=== PATIENT | male | born 1980 | race Two or more races ===

== ENCOUNTER 2025-06-18 17:29 | Inpatient (IN) | payer MEDICAID, SELFPAY ==
[2025-06-18 17:47] VITALS: BP 138/83; PULSE 89; RESP 20; TEMP 37.7; O2SAT 97; BMI 28.8
--- NOTE | 2025-06-18 17:48 | XR_ITS ---
Examination: CT abdomen with intravenous contrast CT pelvis with intravenous contrast 2-D coronal reconstructions 2-D sagittal reconstructions Date and time of exam:June 18, 2025, 1948 hours, comparison October 15, 2014 INDICATION: Right lower abdominal pain onset today. CTDI: vol (mGy) 7.32 DLP: (mGycm) 451 Technique: Multiple axial sections of the abdomen and pelvis have been obtained. 64 slice high-resolution scanner used. 3 mm axial sections have been obtained, post intravenous injection 60 cc Isovue 370 2-D sagittal, coronal reconstructions obtained. Low dose protocols were performed. One or more of the following dose reduction techniques were used; automated exposure control, adjustment of the mA and/or KV according to patient size, use of iterative reconstruction technique. Findings: No focal liver or splenic lesion Contracted gallbladder No pancreatic or adrenal mass. No hydronephrosis Abscess involving the right psoas and right iliacus muscle, axial image 138, at least 6 cm in mediolateral dimension and extending cephalocaudad over dimension of at least 10 cm Urinary bladder is intact No prostatomegaly IMPRESSION: Soft tissue mass involving the right psoas and right iliacus muscle most consistent with abscess, tuberculosis would be high on the differential list
--- NOTE | 2025-06-18 17:48 | PD.EDRME ---
Rapid Medical Screening Exam [facility] Arrival date/time: 06/18/25 17:29 44-year-old male with no significant medical problems presents to the emergency room today for complaint of nausea vomiting and right side abdominal pain x 2 weeks Chief Complaint: Abdominal Pain Time Seen by Provider: 06/18/25 17:30 Vital signs: Vital Signs Temperature 99.9 F 06/18/25 17:47 Pulse Rate 89 06/18/25 17:47 Respiratory Rate 20 06/18/25 17:47 Blood Pressure 138/83 H 06/18/25 17:47 Pulse Oximetry (%) 97 06/18/25 17:47 Oxygen Delivery Method Room Air 06/18/25 17:47
[2025-06-18 18:45] LABS: Collection Type, Urine Clean Catch; Squamous Epithelial Cell,Urine 0 /hpf (0-5)
[2025-06-18 19:01] LABS: Bilirubin,Urine Negative (Negative); Blood,Urine Negative (Negative); Clarity,Urine Clear (Clear/Hazy); Color,Urine Lt-Yellow (Lt Yel-Yel); Culture Indicated,Urine Not Indicated; Glucose, Urine Negative (Negative); Ketones,Urine Negative (Negative); Leukocyte Esterase,Urine Negative (Negative); Nitrite,Urine Negative (Negative); PH,Urine 6.0 (5.0-7.0); Protein,Urine Negative (Neg - Trace); RBC,Urine 1 /hpf (0-3); Specific Gravity,Urine 1.022 (1.001-1.035); Urobilinogen,Urine Negative mg/dL (0.0-1.0); WBC,Urine < 1 /hpf (0-5)
[2025-06-18 19:14] LABS: Basophils # (Auto) 0.1 Thou/mm3 (0.0-0.2); Basophils % (Auto) 0 % (0-2.5); Eosinophils # (Auto) 0.3 Thou/mm3 (0.0-0.5); Eosinophils % (Auto) 2 % (0-10); Hematocrit 44.8 % (41.0-53.0); Hemoglobin 15.0 g/dL (13.5-16.0); Immature Granulocytes Auto 0.05 Thou/mm3 (0.00-0.00); Lymphocytes # (Auto) 2.7 Thou/mm3 (1.0-4.8); Lymphocytes % (Auto) 19 % (10-50); Mean Corpuscular HGB Conc 33.5 g/dl (31.0-37.0); Mean Corpuscular Hemoglobin 31.7 pg (25.0-35.0); Mean Corpuscular Volume 95 fL (80-100); Monocytes # (Auto) 1.5 Thou/mm3 (0.0-0.8); Monocytes % (Auto) 10 % (0-12); Neutrophils # (Auto) 9.9 Thou/mm3 (1.8-7.7); Neutrophils % (Auto) 69 % (37-80); Nucleated Red Blood Cell # 0.00 Thou/mm3 (0.00-0.00); Nucleated Red Blood Cell % 0 /100 WBC (0); Platelet Count 310 Thou/mm3 (140-440); RDW Standard Deviation 42.9 fL (35.1-43.9); Red Blood Count 4.73 Miln/mm3 (4.50-5.90); White Blood Count 14.5 Thou/mm3 (3.8-10.6)
[2025-06-18 19:46] LABS: Alanine Aminotransferase 17 U/L (10-49); Albumin, Serum 4.4 gm/dL (3.5-5.0); Albumin/Globulin Ratio 1.4 (1.2-2.2); Alkaline Phosphatase 85 U/L (46-116); Anion Gap 8 (7-16); Aspartate Amino Transferase 25 U/L (0-34); BUN/Creatinine Ratio 12 Ratio (12-20); Bilirubin,Total 0.4 mg/dL (0.3-1.2); Blood Urea Nitrogen 12 mg/dL (9-23); Calcium 9.5 mg/dL (8.3-10.6); Calcium (Corrected) 9.5 mg/dL (8.5-10.1); Carbon Dioxide 29.7 mMol/L (20.0-31.0); Chloride 102 mMol/L (98-107); Creatinine (Component) 1.0 mg/dL (0.6-1.3); Estimated Creatinine Clearance 92.2 mL/min (>60); Globulin 3.1 gm/dL (2.3-3.5); Glucose 87 mg/dL (74-106); Lipase 31 U/L (12-53); Osmolality,Calculated 278 (275-295); Potassium 4.2 mMol/L (3.4-5.1); Sodium 140 mMol/L (136-145); Total Protein 7.5 gm/dL (5.7-8.2); eGFR > 60 See Note
--- NOTE | 2025-06-18 21:22 | PD.EDABDPN ---
ED Abdominal Pain RME/HPI General Chief Complaint: Abdominal Pain Stated complaint: STOMACH PAIN X3 WKS Time seen by provider: 06/18/25 17:30 Arrival date/time: 06/18/25 17:29 RME / HPI RME / HPI narrative: 06/18/25 17:29 44-year-old male with no significant medical problems presents to the emergency room today for complaint of nausea vomiting and right side abdominal pain x 2 weeks See MDM Related Data Allergies Allergy/AdvReac Type Severity Reaction Status Date / Time NKA* Allergy Uncoded 06/18/25 17:32 Review of Systems Review of Systems Systems Reviewed: All systems reviewed, normal except as documented ED Exam Narrative Physical exam: See [facility] Course Quality Measures none Orders Category Date Time Status Admit to Inpatient Status Routine Admission 06/18/25 23:18 Active Patient Condition Routine Admission 06/18/25 23:18 Ordered COVID-19 Screening Questionnaire NOW Care 06/18/25 22:[address] Screening NOW Care 06/18/25 17:48 Active Decision to Admit X1 Care 06/18/25 22:14 Completed Insert IV NOW Care 06/18/25 17:48 Active NPO after Midnight ONCE Care 06/18/25 23:16 Active Notify provider NEEDED Care 06/18/25 23:18 Active SVN NEEDED Care 06/18/25 23:16 Active Tuberculin Skin Test (PPD) q48h Care 06/18/25 23:16 Active Consult to Infectious Diseases Stat Cons 06/18/25 23:14 Ordered Diet NPO after Midnight Diet 06/19/25 00:[address] abdomen pelvis w con Stat Exams 06/18/25 17:48 Completed IR abscess drainage Stat Exams 06/18/25 Ordered XR chest 1V Stat Exams 06/18/25 22:16 Completed CBC Stat Lab 06/18/25 19:07 Completed CRP [C-Reactive Protein] Stat Lab 06/18/25 23:35 Completed Comprehensive Metabolic Panel Stat Lab 06/18/25 19:07 Completed Cult AFB Sendout- Sputum* Q8H Lab 06/19/25 01:16 Received Cult AFB Sendout- Sputum* Q8H Lab 06/19/25 07:30 Ordered Cult AFB Sendout- Sputum* Q8H Lab 06/19/25 15:30 Ordered ESR [Sed Rate (ESR)] Stat Lab 06/18/25 23:35 Completed HIV (1&2) Antibody Rapid Stat Lab 06/18/25 23:35 Received Lipase Stat Lab 06/18/25 19:07 Completed Quantiferon-TB* Stat Lab 06/18/25 23:16 Ordered Type and Screen Stat Lab 06/18/25 23:35 Completed UA, C/S IF [Urinalysis, C/S if Indicated] Stat Lab 06/18/25 18:06 Completed Piper/Tazo 3.375 gm Premix [Zosyn] 50 ml Med 06/18/25 23:15 Pending IV Q6HR Sodium Chloride Rt Agnieszka 10% [NS Rt Agnieszka 10%] Med 06/18/25 23:14 Discontinued 5 ml INH X1 ONE Tuberculin Ppd Inj [Tubersol Inj] Med 06/18/25 23:14 Discontinued 5 unit ID X1 ONE Vancomycin Pharmacy to Dose Med 06/19/25 09:00 Pending 1 each IV QDAY Code Status Routine Oth 06/18/25 23:14 Ordered Oxygen Delivery PRN RT 06/18/25 23:14 Active Vital Signs Vital signs: Vital Signs Temperature 99.9 F 06/18/25 17:47 Pulse Rate 89 06/18/25 17:47 Respiratory Rate 20 06/18/25 17:47 Blood Pressure 138/83 H 06/18/25 17:47 Pulse Oximetry (%) 97 06/18/25 17:47 Oxygen Delivery Method Room Air 06/18/25 17:47 Abdominal Pain MDM MDM Narrative MDM Narrative:: Scribe Attestation: I, Mandy Scott, am scribing for and in the presence of Dr. Linda. Provider Notation: Although this document has been carefully reviewed, there may still be some phonetic and other typographical errors.? These errors are purely grammatical due to imperfections in the software program and should not be construed in any way to? compromise the substance of the patient's medical care during this visit. This section includes all my notes and documentations, including HPI, PE, and ED course. Alvaro Linda MD HPI: 44 y/o male presents with right-sided abdominal pain x 3 weeks. No obvious cause. No known injury. No fever or chills. No unusual malaise and fatigue. No cough. No other complaints. ROS: All negative except as documented in HPI. Physical Exam: General: Alert and oriented. No acute distress when remaining still. Eyes: Conjunctivae and lids clear. ENT: No nasal congestion. Neck: Supple. Heart: RRR. Lungs: No respiratory distress. Good air movement. No rhonchi, wheezing, rales. Abdomen: Soft with equivocal tenderness in right flank region. Normal bowel sounds. No distension. No rebound or guarding. Back: No CVA tenderness. Skin: Warm and dry. Neuro: Alert and oriented X 3. I reviewed all diagnostic test results: My interpretation of the CXR is no acute findings. My review of the Abdomen/Pelvis CT report is: Soft tissue mass involving the right psoas and right iliacus muscle most consistent with abscess, tuberculosis would be high on the differential list. Blood tests and urine tests remarkable for WBC 14.5, ESR 50, CXR 4.2. At this point, diagnoses include: Intra-abdominal abscess. I discussed the case with our surgeon, Dr. Vizcaino. About the presentation and exam and diagnostics and treatments here. And possible need of further care in the hospital. Recommended consultation with IR. I discussed the case with our IR. About the presentation and exam and diagnostics and treatments here. And possible need of further care in the hospital. Recommended admission to hospitalist service. Will drain the abscess if needed. I discussed the case with our hospitalist. About the presentation and exam and diagnostics and treatments here. And need of further care in the hospital. Agreed to accept the patient. During my watch, the patient remained stable. Alvaro Linda MD Patient data External records reviewed:: [facility] previous records (No prior ED records available for review.) Clinical information provided by:: patient Social determinants that could affect healthcare access:: none Patient has the following chronic illnesses:: None reported How is presenting disease/condition affected by chronic disease/condition?: no chronic disease Evaluation data The following diagnostics were reviewed and interpreted by me:: lab results and radiology exam(s) Lab and/or radiology exams considered but not ordered:: None Interpretation Summary: I reviewed all diagnostic test results: My interpretation of the CXR is no acute findings. My review of the Abdomen/Pelvis CT report is: Soft tissue mass involving the right psoas and right iliacus muscle most consistent with abscess, tuberculosis would be high on the differential list. Blood tests and urine tests remarkable for WBC 14.5, ESR 50, CXR 4.2. Medications / Prescriptions Medications or Prescriptions considered but not ordered:: None Medication administrations:: Medication Administration History Acetaminophen (Acetaminophen 325 Mg Tablet) 650 mg PO Q6H PRN PRN Reason: PAIN SCALE 1-3 (mild Stop: 07/18/25 23:18 Acetaminophen (Acetaminophen 325 Mg Tablet) 650 mg PO Q6H PRN PRN Reason: Fever >100.4 Stop: 07/18/25 23:18 Hydrocodone Bitart/Acetaminophen (Hydrocodone/Apap 5/325 Tablet) 1 tab PO Q4HR PRN PRN Reason: PAIN SCALE 4-10(Mod-Sev Stop: 06/23/25 23:18 Enoxaparin Sodium (Enoxaparin Sod Inj 40 Mg/0.4 Ml Syringe) 40 mg SC QDAY EDI Stop: 07/03/25 08:59 Piperacillin/Tazobactam/Dextrose (Zosyn) 50 mls @ 100 mls/hr IV Q6HR EDI Stop: 06/25/25 23:14 Vancomycin/Sodium Chloride (Vancomycin/Ns 1 Gm Ivpb) 200 mls @ 120 mls/hr IV Q100M EDI Stop: 06/19/25 03:04 Last Admin: 06/19/25 01:05 Dose: 120 mls/hr Documented By: TELLO Ondansetron HCl (Ondansetron Inj 2 Mg/Ml Inj 2 Ml) 4 mg IVP Q6H PRN; Protocol PRN Reason: NAUSEA OR VOMITING Stop: 07/18/25 23:18 Pharmacy Consult (Vancomycin Pharmacy To Dose 1 Each Each) 1 each IV QDAY EDI Stop: 07/19/25 08:59 Discontinued Medications Piperacillin/Tazobactam/Dextrose (Zosyn) 3.375 gm in 50 mls @ 100 mls/hr IV X1 ONE Stop: 06/19/25 00:14 Last Infusion: 06/19/25 01:19 Dose: Infused Documented By: Admin: 06/19/25 00:07 Dose: 100 mls/hr Documented By: TELLO Vancomycin HCl 1,000 mg/ (Sodium Chloride) 250 mls @ 120 mls/hr IV X1 ONE Stop: 06/19/25 02:55 Last Admin: 06/19/25 01:04 Dose: Not Given Documented By: SE Non-Admin Reason: Cancelled by Provider Sodium Chloride (Sodium Chloride Rt 10% 15 Ml Nebu) 5 ml INH X1 ONE Stop: 06/18/25 23:15 Tuberculin PPD (Tuberculin Ppd Inj 5 Unit/0.1 Ml Dose) 5 unit ID X1 ONE Stop: 06/18/25 23:15 Vancomycin HCl (Vancomycin Inj 1,000 Mg Vial) Confirm Administered Dose 2,000 mg .ROUTE .STK-MED ONE Stop: 06/19/25 00:51 Last Admin: 06/19/25 01:03 Dose: Not Given Documented By: SE Non-Admin Reason: Duplicate Medication on eMAR Patient received no treatment from me. Consultations Consultation(s) initiated? (list below): Yes Consultation #1 (Physician, Specialty, Details): I discussed the case with our surgeon, Dr. Vizcaino. About the presentation and exam and diagnostics and treatments here. And possible need of further care in the hospital. Recommended consultation with IR. Time: 21:20 Consultation #2 (Physician, Specialty, Details): I discussed the case with our IR. About the presentation and exam and diagnostics and treatments here. And possible need of further care in the hospital. Recommended admission to hospitalist service. Will drain the abscess if needed. Time: 21:29 Consultation #3 (Physician, Specialty, Details): I discussed the case with our hospitalist. About the presentation and exam and diagnostics and treatments here. And need of further care in the hospital. Agreed to accept the patient. Time: 22:00 Diagnosis Differential diagnosis abdominal pain: abdominal pain, acute appendicitis, calculus of kidney, constipation, diverticulitis, gastroenteritis and small bowel obstruction Most likely diagnosis given after review of the tests above:: Intra-abdominal abscess Admission Indicated Admission indicated?: indicated Explain why admission is indicated or not indicated:: Intra-abdominal abscess Admission Request Was there a request for admission?: Yes Admission Attestation Admission request attestation: Discussed case with [] from Hospitalist service regarding admission. Discussed patients ED course, exam findings, labs, and radiology results. The Hospitalist [agrees,declines] to accept the patient for admission. Disposition Plan Disposition Plan: Admit Discharge Plan Plan Patient Disposition: Admit Acute Care w/in Hospital Problem List Clinical Impression: Intra-abdominal abscess
--- NOTE | 2025-06-18 22:16 | XR_ITS ---
Examination: PA chest single view TECHNIQUE: Upright PA chest single view Date and time: June 18, 2025 10:21 PM INDICATIONS: Nausea vomiting and right-sided abdominal pain beginning 2 weeks ago. FINDINGS: Normal heart size The lungs are clear. The osseous structures are intact IMPRESSION: No active disease
[2025-06-18 22:41] VITALS: BP 111/69; PULSE 76; RESP 17; TEMP 37.4; O2SAT 96
--- NOTE | 2025-06-18 23:22 | ESHP_ITS ---
Documentation for date of: 06/18/25 [facility] History of Present Illness Chief complaint: Right-sided abdominal/flank pain for 3 weeks History of present illness: 44-year-old male with no past medical history presents with right flank pain ongoing for approximately 3 weeks. The pain is constant, worsens with movement, swelling and palpation, and has not improved with time. He denies trauma, falls, or recent physical exertion. He endorses chills, but denies fevers, night sweats, intentional weight loss, nausea, vomiting, constipation, diarrhea urinary symptoms, hematuria, or respiratory complaints. He reports a positive TB test approximately 17 years ago, for which he had completed treatment. Since then, he has had multiple TB test, all negative. He denies chronic cough, hemoptysis, or dyspnea. No history of incarceration or sheltered living. 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 ED Course: CT abdomen/pelvis showed a 6x10 cm right psoas/iliacus abscess. Chest X-ray done. Blood cultures drawn. Started on Zosyn and Vancomycin. IR (Dr. Asencio) consulted and agreed to drain. Patient admitted for further management. ROS: Negative unless stated above No medications No known allergies Past surgical history notable for appendectomy 8 years ago Denies smoking, alcohol, or drug use. Exam Vital Signs Temp Pulse Resp BP Pulse Ox O2 Del Method 99.4 F 76 17 111/69 96 Room Air 06/18/25 22:41 06/18/25 22:41 06/18/25 22:41 06/18/25 22:41 06/18/25 22:41 06/18/25 22:41 Narrative Exam General: Alert, oriented, no acute distress when still HEENT: PERRL, EOMI, conjunctivae clear, oropharynx normal Neck: Supple, no lymphadenopathy Lungs: Clear to auscultation bilaterally, no respiratory distress Heart: RRR, no murmurs Abdomen: Soft, non-tender, non-distended, normal bowel sounds Back/Flank: Tenderness to right flank, no visible mass, no CVA tenderness Neuro: AOx3, CN II-XII intact, no focal motor deficits Skin: Warm, dry Extremities: No edema or cyanosis Results: Labs 06/18/25 19:07 06/18/25 19:07 Labs: Short CBC 06/18/25 Range/Units 19:07 WBC 14.5 H (3.8-10.6) Thou/mm3 Hgb 15.0 (13.5-16.0) g/dL Hct 44.8 (41.0-53.0) % Plt Count 310 (140-440) Thou/mm3 BMP 06/18/25 19:07 Sodium 140 Potassium 4.2 Chloride 102 Carbon Dioxide 29.7 BUN 12 Creatinine 1.0 Glucose 87 Calcium 9.5 Liver Function 06/18/25 Range/Units 19:07 Total Bilirubin 0.4 (0.3-1.2) mg/dL AST 25 (0-34) U/L ALT 17 (10-49) U/L Alkaline Phosphatase 85 (46-116) U/L Albumin 4.4 (3.5-5.0) gm/dL Urine 06/18/25 Range/Units 18:06 Urine Color Lt-Yellow (Lt Yel-Yel) Urine Clarity Clear (Clear/Hazy) Urine pH 6.0 (5.0-7.0) Ur Specific [place] 1.022 (1.001-1.035) Urine Protein Negative (Neg - Trace) Urine Glucose (UA) Negative (Negative) Quality Measures Quality Measures VTE prophylaxis Medications Home Medications and Allergies Allergies Allergy/AdvReac Type Severity Reaction Status Date / Time NKA* Allergy Uncoded 06/18/25 17:32 Visit Medications Acetaminophen (Acetaminophen 325 Mg Tablet) 650 mg PO Q6H PRN PRN Reason: PAIN SCALE 1-3 (mild Stop: 07/18/25 23:18 Acetaminophen (Acetaminophen 325 Mg Tablet) 650 mg PO Q6H PRN PRN Reason: Fever >100.4 Stop: 07/18/25 23:18 Hydrocodone Bitart/Acetaminophen (Hydrocodone/Apap 5/325 Tablet) 1 tab PO Q4HR PRN PRN Reason: PAIN SCALE 4-10(Mod-Sev Stop: 06/23/25 23:18 Enoxaparin Sodium (Enoxaparin Sod Inj 40 Mg/0.4 Ml Syringe) 40 mg SC QDAY EDI Stop: 07/03/25 08:59 Piperacillin/Tazobactam/Dextrose (Zosyn) 50 mls @ 100 mls/hr IV Q6HR EDI Stop: 06/25/25 23:14 Ondansetron HCl (Ondansetron Inj 2 Mg/Ml Inj 2 Ml) 4 mg IVP Q6H PRN; Protocol PRN Reason: NAUSEA OR VOMITING Stop: 07/18/25 23:18 Pharmacy Consult (Vancomycin Pharmacy To Dose 1 Each Each) 1 each IV QDAY EDI Stop: 07/19/25 08:59 Sodium Chloride (Sodium Chloride Rt 10% 15 Ml Nebu) 5 ml INH X1 ONE Stop: 06/18/25 23:15 Tuberculin PPD (Tuberculin Ppd Inj 5 Unit/0.1 Ml Dose) 5 unit ID X1 ONE Stop: 06/18/25 23:15 Assessment & Plan Plan 44M with no PMHx presenting with 3 weeks of right flank pain. CT revealed a 6x10 cm right psoas + iliacus abscess. Stable vitals. No systemic toxicity. TB on differential given geography and imaging, though he has completed treatment in the past and had negative follow-ups. # Right psoas/iliacus abscess Large 6x10 cm abscess involving right psoas and iliacus on CT Likely infectious origin. Associated leukocytosis (WBC 14.5, neutrophil predominant). Plan: * IR drainage planned with Dr. Asencio * Started empiric antibiotics: Zosyn + Vancomycin * NPO after midnight for drainage * Trend daily CBC * Order ESR and CRP for inflammatory baseline * Monitor for signs of systemic infection # Rule out Tuberculosis Completed TB treatment 17 years ago Multiple negative TB tests since TB still on differential given geography and imaging. Plan: * Order Quantiferon-TB Gold and PPD * Order HIV Ag/Ab * Hold RIPE therapy for now, defer to ID * CXR done ? no cavitary lesions * ID consulted for further guidance Health Maintenance: Dispo: Awaiting drainage + culture data DVT prophylaxis: Lovenox GI prophylaxis: Pantoprazole 40 mg IV daily Code status: Full code Diet: NPO after midnight ----- Plan discussed with attending physician Dr. Anupam Willson MD PGY-1 Internal Medicine Attending Provider Attestation/Addendum I have examined the patient, reviewed labs and imaging findings, discussed the case with the resident(s), and reviewed entered orders. I agree with the plan of care as outlined in this note, with these additional summaries/recommendations: After examination of the patient and review of the clinical data, I feel that this patient needs admission to the hospital for further treatment and evaluation. Patient is a 44-year-old male with a past medical history of tuberculosis presents to [facility] emergency department on 06/18/2025 with chief complaint of right-sided abdominal/flank pain. Patient seen at bedside. He underwent CT scan of abdomen and pelvis which revealed soft tissue mass involving the right psoas and right iliacus muscle most consistent with abscess with tuberculosis high on the differential. Patient does report a history of tuberculosis treated approximately 17 to 18 years ago. Unclear if this was active or latent TB. He does report he has had negative skin tests since receiving treatment which would be atypical if active TB. Nonetheless patient diagnosed with psoas abscess. Unclear if primary site infection or secondary site of infection at this time. Patient currently stage II for psoas abscess. Case discussed with in-house interventional radiology who has agreed to consult on the case and will take patient for IR drainage of abscess. We will order Gram stain and culture. Chest x-ray was obtained to rule out cavitary lesion and no active disease was seen. Order AFBs, PPD, and quantiferon gold. 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 Continue isolation precautions. Leukocytosis present and continue antibiotics. Repeat hematology panel in AM. Patient updated on the plan and in agreement. All questions answered to satisfaction. Please see residents note for additional details and management. Dr. Anupam MD
[2025-06-19] VITALS (11 sets, daily range): BP systolic 99–123; BP diastolic 57–74; PULSE 60–88; RESP 15–98; TEMP 36.2–36.6; O2SAT 95–100; BMI 28.4; BMI 28.7
[2025-06-19] MEDS: PIPER/TAZO 3.375 GM PREMIX 3.375 GM/50 ML BAG IV ×3 (00:07→21:49)
[2025-06-19 00:17] LABS: Sed Rate (ESR) 50 mm/hr (0-15)
[2025-06-19 00:31] LABS: C-Reactive Protein 4.2 mg/dL (0.0-0.9)
[2025-06-19] MEDS: VANCOMYCIN/NS 1 GM IVPB 200 ML IV ×2 (01:05→02:50)
[2025-06-19 01:20] LABS: Cult AFB Sendout- Sputum* See Sep Rpt
[2025-06-19 02:30] LABS: HIV (1&2) Antibody Rapid Non-Reactive
--- NOTE | 2025-06-19 02:49 | PC.NURSE ---
pt received from at 0200 and now in room 360. pt is aaox4, airborne precautions initiated due to r/o tb.
--- NOTE | 2025-06-19 04:56 | PC.RT ---
AFB #1 collected and delivered to lab at 0117
[2025-06-19 06:19] LABS: Quantiferon-TB* See Sep Rpt
[2025-06-19 06:29] LABS: Basophils # (Auto) 0.1 Thou/mm3 (0.0-0.2); Basophils % (Auto) 0 % (0-2.5); Eosinophils # (Auto) 0.4 Thou/mm3 (0.0-0.5); Eosinophils % (Auto) 3 % (0-10); Hematocrit 43.6 % (41.0-53.0); Hemoglobin 14.7 g/dL (13.5-16.0); Immature Granulocytes Auto 0.08 Thou/mm3 (0.00-0.00); Lymphocytes # (Auto) 2.4 Thou/mm3 (1.0-4.8); Lymphocytes % (Auto) 18 % (10-50); Mean Corpuscular HGB Conc 33.7 g/dl (31.0-37.0); Mean Corpuscular Hemoglobin 32.2 pg (25.0-35.0); Mean Corpuscular Volume 96 fL (80-100); Monocytes # (Auto) 1.5 Thou/mm3 (0.0-0.8); Monocytes % (Auto) 12 % (0-12); Neutrophils # (Auto) 8.6 Thou/mm3 (1.8-7.7); Neutrophils % (Auto) 66 % (37-80); Nucleated Red Blood Cell # 0.00 Thou/mm3 (0.00-0.00); Nucleated Red Blood Cell % 0 /100 WBC (0); Platelet Count 297 Thou/mm3 (140-440); RDW Standard Deviation 43.8 fL (35.1-43.9); Red Blood Count 4.56 Miln/mm3 (4.50-5.90); White Blood Count 13.1 Thou/mm3 (3.8-10.6)
[2025-06-19 06:38] LABS: INR 1.0 (0.9-1.3); Prothrombin Time 11.4 Seconds (9.0-12.2)
[2025-06-19 06:50] LABS: Anion Gap 8 (7-16); BUN/Creatinine Ratio 12 Ratio (12-20); Blood Urea Nitrogen 12 mg/dL (9-23); Calcium 9.2 mg/dL (8.3-10.6); Carbon Dioxide 29.2 mMol/L (20.0-31.0); Chloride 105 mMol/L (98-107); Creatinine (Component) 1.0 mg/dL (0.6-1.3); Estimated Creatinine Clearance 92.3 mL/min (>60); Glucose 104 mg/dL (74-106); Magnesium 1.6 mg/dL (1.6-2.6); Osmolality,Calculated 282 (275-295); Phosphorous 3.3 mg/dL (2.4-5.1); Potassium 3.6 mMol/L (3.4-5.1); Sodium 142 mMol/L (136-145); eGFR > 60 See Note
--- NOTE | 2025-06-19 08:14 | ESPR_ITS ---
<Statement entered by Tommy Melo MD - 06/19/25 17:14> Senior Resident Attestation: I supervised/discussed management plan with qa internship physician Dr. Jin, and was involved in the care of this patient. I personally saw and examined the patient and discussed the assessment and plan with the entire medicine team, including my attending. I agree with the assessment and plan as documented. Patient reports ongoing right lower quadrant pain with palpation. General surgery and orthopedic surgery were consulted and did not recommend any surgical intervention at this time. Interventional radiology recommended to continue IV antibiotics and reassess patient later for possible IR guided aspiration. Pending ID recommendations. Patient's care was discussed with attending physician, Dr. Wan. Tommy Melo MD PGY-3. Documentation for date of: 06/19/25 Subjective Subjective Interval history: 06/19/25: AKMILA. VSS. Patient denies any subjective fever, night sweat, nausea, vomiting, cough, hemoptysis, dyspnea. Patient states that he is asymptomatic at this time and his flank pain has resolved. Exam Vital Signs Temp Pulse Resp BP Pulse Ox O2 Del Method 97.9 F 60 17 99/61 99 Room Air 06/19/25 04:00 06/19/25 04:00 06/19/25 04:00 06/19/25 04:00 06/19/25 04:00 06/19/25 04:00 Narrative Exam General: Alert, oriented, in no acute distress HEENT: NCAT, EOMI, conjunctivae without injections, no icteric sclera Neck: Supple, no lymphadenopathy Lungs: Spontaneous breathing, no respiratory distress, no tachypnea, no wheezing Heart: RRR, no murmurs Abdomen: Soft,non-distended, no rigidity or perotinic signs Back/Flank: Tenderness to right flank, no visible mass, no CVA tenderness Neuro: AOx3, CN II-XII intact, no focal motor deficits Skin: Warm, dry Extremities: No edema or cyanosis Objective Labs 06/20/25 04:54 06/20/25 04:54 Labs: Laboratory Results - last 24 hr 06/18/25 06/18/25 06/18/25 18:06 19:07 23:35 WBC 14.5 H RBC 4.73 Hgb 15.0 Hct 44.8 MCV 95 MCH 31.7 MCHC 33.5 RDW Std Deviation 42.9 Plt Count 310 Neut % (Auto) 69 Lymph % (Auto) 19 [place] % (Auto) 10 Eos % (Auto) 2 Baso % (Auto) 0 Neut # (Auto) 9.9 H Lymph # (Auto) 2.7 [place] # (Auto) 1.5 H Eos # (Auto) 0.3 Baso # (Auto) 0.1 Immature Gran # (Auto) 0.05 H Absolute Nucleated RBC 0.00 Immature Gran % 0 Nucleated RBC % 0 ESR 50 H PT INR Sodium 140 Potassium 4.2 Chloride 102 Carbon Dioxide 29.7 Anion Gap 8 BUN 12 Creatinine 1.0 Estim Creat Clear Calc 92.2 eGFR > 60 BUN/Creatinine Ratio 12 Glucose 87 Calculated Osmolality 278 Calcium 9.5 Corrected Calcium 9.5 Phosphorus Magnesium Total Bilirubin 0.4 AST 25 ALT 17 Alkaline Phosphatase 85 C-Reactive Prot, Quant 4.2 H Total Protein 7.5 Albumin 4.4 Globulin 3.1 Albumin/Globulin Ratio 1.4 Lipase 31 Ur Collection Type Clean Catch Urine Color Lt-Yellow Urine Clarity Clear Urine pH 6.0 Ur Specific [place] 1.022 Urine Protein Negative Urine Glucose (UA) Negative Urine Ketones Negative Urine Blood Negative Urine Nitrite Negative Urine Bilirubin Negative Urine Urobilinogen (Auto) Negative Ur Leukocyte Esterase Negative Urine RBC 1 Urine WBC < 1 Ur Squamous Epith Cells 0 Urine Bacteria None Ur Culture Indicated? Not Indicated HIV 1&2 Antibody Rapid Non-Reactive Blood Type O Positive Antibody Screen NEGATIVE Blood Bank Wristband ID Yes 06/19/25 05:50 WBC 13.1 H RBC 4.56 Hgb 14.7 Hct 43.6 MCV 96 MCH 32.2 MCHC 33.7 RDW Std Deviation 43.8 Plt Count 297 Neut % (Auto) 66 Lymph % (Auto) 18 [place] % (Auto) 12 Eos % (Auto) 3 Baso % (Auto) 0 Neut # (Auto) 8.6 H Lymph # (Auto) 2.4 [place] # (Auto) 1.5 H Eos # (Auto) 0.4 Baso # (Auto) 0.1 Immature Gran # (Auto) 0.08 H Absolute Nucleated RBC 0.00 Immature Gran % 1 H Nucleated RBC % 0 ESR PT 11.4 INR 1.0 Sodium 142 Potassium 3.6 D Chloride 105 Carbon Dioxide 29.2 Anion Gap 8 BUN 12 Creatinine 1.0 Estim Creat Clear Calc 92.3 eGFR > 60 BUN/Creatinine Ratio 12 Glucose 104 Calculated Osmolality 282 Calcium 9.2 Corrected Calcium Phosphorus 3.3 Magnesium 1.6 Total Bilirubin AST ALT Alkaline Phosphatase C-Reactive Prot, Quant Total Protein Albumin Globulin Albumin/Globulin Ratio Lipase Ur Collection Type Urine Color Urine Clarity Urine pH Ur Specific [place] Urine Protein Urine Glucose (UA) Urine Ketones Urine Blood Urine Nitrite Urine Bilirubin Urine Urobilinogen (Auto) Ur Leukocyte Esterase Urine RBC Urine WBC Ur Squamous Epith Cells Urine Bacteria Ur Culture Indicated? HIV 1&2 Antibody Rapid Blood Type Antibody Screen Blood Bank Wristband ID Quality Measures Quality Measures VTE prophylaxis Assessment & Plan Assessment Current Active Medications: Generic Name Dose Route Start Last Admin Trade Name Freq PRN Reason Stop Dose Admin Acetaminophen 650 mg 06/18/25 23:19 Acetaminophen 325 Mg Tablet PO 07/18/25 23:18 Q6H PRN PAIN SCALE 1-3 (mild Acetaminophen 650 mg 06/18/25 23:19 Acetaminophen 325 Mg Tablet PO 07/18/25 23:18 Q6H PRN Fever >100.4 Hydrocodone Bitart/Acetaminophen 1 tab 06/18/25 23:19 Hydrocodone/Apap 5/325 Tablet PO 06/23/25 23:18 Q4HR PRN PAIN SCALE 4-10(Mod-Sev Enoxaparin Sodium 40 mg 06/19/25 09:00 Enoxaparin Sod Inj 40 Mg/0.4 Ml Syringe SC 07/03/25 08:59 QDAY EDI Piperacillin/Tazobactam/Dextrose 3.375 gm in 50 mls @ 12.5 mls/hr 06/18/25 07:15 Zosyn IV 06/25/25 07:14 Q8HR EDI Protocol Vancomycin HCl 200 mls @ 120 mls/hr 06/19/25 10:00 Vancomycin/Water 1gm Ivpb IV 06/26/25 09:59 BID@1000,2200 EDI Magnesium Sulfate 4 gm in 50 mls @ 12.5 mls/hr 06/19/25 07:54 Magnesium Sulfate Ivpb IV 06/19/25 11:53 X1 ONE Sodium Chloride 1,000 mls @ 75 mls/hr 06/19/25 07:55 Ns IV 07/19/25 07:54 .[id number] EDI Ondansetron HCl 4 mg 06/18/25 23:19 Ondansetron Inj 2 Mg/Ml Inj 2 Ml IVP 07/18/25 23:18 Q6H PRN NAUSEA OR VOMITING Protocol Pharmacy Consult 1 each 06/19/25 09:00 Vancomycin Pharmacy To Dose 1 Each Each IV 07/19/25 08:59 QDAY PRN CONSULT Plan 44M with no PMHx presenting with 3 weeks of right flank pain. CT revealed a 6x10 cm right psoas + iliacus abscess. Stable vitals. No systemic toxicity. TB on differential given geography and imaging, though he has completed treatment in the past and had negative follow-ups. # Right psoas/iliacus abscess Large 6x10 cm abscess involving right psoas and iliacus on CT Likely infectious origin. Leukocytosis of 14.5 on admission. Improved to 13.1. Unremarkable CMP and UA. Consulted General Surgery Dr. Mckeon who recommended so surgical intervention at this time and continue with the current plan of IV Abx and IR percutaneous drainage Consulted Orthopedic Surgery Dr. Murrell given the concern for the location of the abscess and close proximity to the spine, who agreed with the current plan and recommended assessing for any neurological deficits which would warrant neurological surgery/ortho consult in the future. IR Dr. Mora was consulted who recommended continuation of current IV antibiotic regimen and repeat CTAP in 5-6 day and reasses as the abscess will most likely shrink. He stated that since the abscess is mainly solid with necrotizing center and minimal fluid, no intervention could be done by IR at this time. IR will reassess in 5-6 days. Plan: - Continue empiric antibiotics: Zosyn + Vancomycin (Start 06/18) - Repeat CTAP in 5-6 days after start of IV Abx. Will consult IR again for recs - Trend daily CBC - Order ESR and CRP for inflammatory baseline - Monitor for signs of systemic infection - Neuro check qday - IVF maintenance 75 # Rule out Tuberculosis Completed TB treatment 17 years ago Multiple negative TB tests since TB still on differential given geography and imaging. CXR negative. Patient is currently asymptomatic. HIV negative. Plan: - Pending Quantiferon-TB Gold - Pending culture - Hold RIPE therapy for now, defer to ID - ID consulted for further guidance Health Maintenance: Dispo: Awaiting drainage + culture data DVT prophylaxis: Lovenox GI prophylaxis: Pantoprazole 40 mg IV daily Code status: Full code Diet: Regular diet ----- Plan discussed with attending physician Dr. Wan and senior resident Dr. Kameron Jin DO PGY-1 Attending Provider Attestation/Addendum Abby, Alexsandra Wan DO, attest that I was physically present for the connell portions of the service and evaluated the patient with the resident and I reviewed and discussed the case with the resident and agree with the resident's findings and plans of care as documented above Patient seen and evaluated this AM. daughter at bedside. 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 He denies any history of incarceration. Patient denies any upper respiratory symptoms, weight loss, night sweats, loss of appetite. Patient reports that he noted the pain about 2 weeks ago while working in his right lower quadrant. He does not have any flank pain, nor does he have CVA tenderness. Patient has negative psoas sign. IR drainage was ordered, but recommends treating with IV abx for at least 5 days for mass to liquefy as it is currently a solid mass with necrotizing material. AFBs obtained to rule out TB. ID consulted
[2025-06-19] MEDS: SODIUM CHLORIDE 0.9% 1000 ML 1,000 ML 75 ML IV (08:51)
[2025-06-19] MEDS: Magnesium Sulfate 4 GM Ivpb 4 GM/50 ML BAG IV (08:51)
--- NOTE | 2025-06-19 10:42 | PC.SS ---
Patient Asim Griffin is a 44 Year old male admitted for Right Flank Pain. SS contacted patient via Phone due to precaution measures. Patient reports he lives at home with his , Isa Griffin who he reports is his surrogate decision maker, [phone]. He reports he does not utilize any source of DME to assist with ambulation. Patient is able to complete all ADL's independently. Choice of pharmacy is [facility]. PCP is Kolton Hinds. At time of discharge patient will return back home. Next of kin: , Isa Griffin Discharge plan: Home
[2025-06-19] MEDS: ALBUTEROL RT 2.5 MG/0.5 ML NEBU INH (10:55)
[2025-06-19] MEDS: SODIUM CHLORIDE RT 10% 15 ML NEBU 5 ML INH (10:55)
[2025-06-19] MEDS: VANCOMYCIN/WATER 1GM IVPB 200 ML IV ×2 (11:33→21:49)
--- NOTE | 2025-06-19 11:54 | PD.SURCONS ---
HPI Consult details Consult date: 06/19/25 Reason for consultation narrative: Iliopsoas abscess History of present illness: 44-year-old male without significant past medical history was admitted with 3 weeks history of right flank pain. He denies history of trauma or recent travel. He has had appendectomy in the past and he was treated for TB years ago. He denies fever, nausea, vomiting, chills, dysuria, night sweats or weight loss. CT scan revealed iliopsoas abscess. Patient was started on IV antibiotics and admitted for further management. Review of Systems Constitutional Constitutional: Denies chills and Denies fever(s) Cardiovascular Cardiovascular: Denies chest pain Respiratory Respiratory: Denies cough Gastrointestinal Gastrointestinal: Denies nausea and Denies vomiting Genitourinary Genitourinary: Denies difficulty urinating Musculoskeletal Comments: Right flank pain Hematologic/Lymphatic Hematologic/Lymphatic: Denies easy bleeding and Denies easy bruising Past Medical History Surgical History OTHER SURGICAL HX: Appendectomy Social History SMOKING STATUS: Never smoker SUBSTANCE USE: does not use ALCOHOL: Never Meds Home Medications and Allergies Home Medications ?Medication ?Instructions ?Recorded ?Confirmed ?Type No Known Home Medications 06/19/25 06/19/25 History Allergies Allergy/AdvReac Type Severity Reaction Status Date / Time NKA* Allergy Uncoded 06/18/25 17:32 Exam Vital Signs Temp Pulse Resp BP Pulse Ox O2 Del Method 97.6 F 60 16 103/63 100 Room Air 06/19/25 07:50 06/19/25 10:57 06/19/25 10:57 06/19/25 07:50 06/19/25 10:56 06/19/25 07:50 Constitutional Constitutional: no acute distress Routine Abdominal Exam Abdominal: Present soft and normoactive bowel sounds; Absent tenderness or distended Comments: He has right flank tenderness to palpation with guarding, no rebound tenderness at this time Results Results: Laboratory Laboratory results: results reviewed Results: Imaging CT scan - abdomen: report reviewed and image reviewed CT scan - pelvis: report reviewed and image reviewed Assessment & Plan Problem List (1) Intra-abdominal abscess: Status: Acute Plan Continue IV antibiotics, agree with percutaneous drainage by IR. No indications for surgical intervention I will sign off, please call for any questions
--- NOTE | 2025-06-19 14:21 | PC.SS ---
SS follow up note; Pending Dr. Irby's rec's. Patient will discharge home when medically cleared.
--- NOTE | 2025-06-19 19:05 | PC.RT ---
@1905 left AFB cup in room, educated pt on importance of a sputum sample. Pt denied sputum induction.
[2025-06-20] VITALS (8 sets, daily range): BP systolic 91–109; BP diastolic 59–70; PULSE 61–86; RESP 16–98; TEMP 36.3–36.7; O2SAT 96–99
[2025-06-20] MEDS: SODIUM CHLORIDE 0.9% 1000 ML 1,000 ML 75 ML IV ×2 (04:21→17:42)
[2025-06-20] MEDS: PIPER/TAZO 3.375 GM PREMIX 3.375 GM/50 ML BAG IV ×3 (05:03→21:34)
[2025-06-20 06:27] LABS: Basophils # (Auto) 0.0 Thou/mm3 (0.0-0.2); Basophils % (Auto) 0 % (0-2.5); Eosinophils # (Auto) 0.3 Thou/mm3 (0.0-0.5); Eosinophils % (Auto) 3 % (0-10); Hematocrit 45.9 % (41.0-53.0); Hemoglobin 15.4 g/dL (13.5-16.0); Immature Granulocytes Auto 0.07 Thou/mm3 (0.00-0.00); Lymphocytes # (Auto) 2.1 Thou/mm3 (1.0-4.8); Lymphocytes % (Auto) 18 % (10-50); Mean Corpuscular HGB Conc 33.6 g/dl (31.0-37.0); Mean Corpuscular Hemoglobin 32.3 pg (25.0-35.0); Mean Corpuscular Volume 96 fL (80-100); Monocytes # (Auto) 1.1 Thou/mm3 (0.0-0.8); Monocytes % (Auto) 9 % (0-12); Neutrophils # (Auto) 8.5 Thou/mm3 (1.8-7.7); Neutrophils % (Auto) 70 % (37-80); Nucleated Red Blood Cell # 0.00 Thou/mm3 (0.00-0.00); Nucleated Red Blood Cell % 0 /100 WBC (0); Platelet Count 324 Thou/mm3 (140-440); RDW Standard Deviation 43.8 fL (35.1-43.9); Red Blood Count 4.77 Miln/mm3 (4.50-5.90); White Blood Count 12.2 Thou/mm3 (3.8-10.6)
[2025-06-20 06:56] LABS: Anion Gap 10 (7-16); BUN/Creatinine Ratio 12 Ratio (12-20); Blood Urea Nitrogen 12 mg/dL (9-23); Calcium 9.3 mg/dL (8.3-10.6); Carbon Dioxide 29.0 mMol/L (20.0-31.0); Chloride 101 mMol/L (98-107); Creatinine (Component) 1.0 mg/dL (0.6-1.3); Estimated Creatinine Clearance 92.3 mL/min (>60); Glucose 82 mg/dL (74-106); Magnesium 2.1 mg/dL (1.6-2.6); Osmolality,Calculated 278 (275-295); Phosphorous 3.3 mg/dL (2.4-5.1); Potassium 4.2 mMol/L (3.4-5.1); Sodium 140 mMol/L (136-145); eGFR > 60 See Note
[2025-06-20] MEDS: ENOXAPARIN SOD INJ 40 MG/0.4 ML SYRINGE SC (08:36)
[2025-06-20 09:29] LABS: Vancomycin,Trough 7.2 mcg/mL (5.0-10.0)
--- NOTE | 2025-06-20 09:42 | PD.IDPROG ---
Subjective Subjective Interval history: on empiric abx for iileopsoas mass that is undrained and not cultured and pt is afabrile. can not r/u mass lesion at the moment Exam Vital Signs Temp Pulse Resp BP Pulse Ox O2 Del Method 97.4 F 64 18 104/66 99 Room Air 06/20/25 08:00 06/20/25 08:00 06/20/25 08:00 06/20/25 08:00 06/20/25 08:00 06/20/25 08:00 Narrative Exam rx is empiric at this pooint. if you wish, you can get an aspirate of the are for culture and use that to guide rx. if you want to treat empirically, then po doxy 100 bid for a month ok f/u with others. I can not see her in f/uabd is benign. some rt sided discomfort noted Objective - Internal Medicine Labs 06/20/25 04:54 06/20/25 04:54 Labs: Laboratory Results - last 24 hr 06/20/25 06/20/25 04:54 08:51 WBC 12.2 H RBC 4.77 Hgb 15.4 Hct 45.9 MCV 96 MCH 32.3 MCHC 33.6 RDW Std Deviation 43.8 Plt Count 324 Neut % (Auto) 70 Lymph % (Auto) 18 [place] % (Auto) 9 Eos % (Auto) 3 Baso % (Auto) 0 Neut # (Auto) 8.5 H Lymph # (Auto) 2.1 [place] # (Auto) 1.1 H Eos # (Auto) 0.3 Baso # (Auto) 0.0 Immature Gran # (Auto) 0.07 H Absolute Nucleated RBC 0.00 Immature Gran % 1 H Nucleated RBC % 0 Sodium 140 Potassium 4.2 D Chloride 101 Carbon Dioxide 29.0 Anion Gap 10 BUN 12 Creatinine 1.0 Estim Creat Clear Calc 92.3 eGFR > 60 BUN/Creatinine Ratio 12 Glucose 82 Calculated Osmolality 278 Calcium 9.3 Phosphorus 3.3 Magnesium 2.1 Vancomycin Trough 7.2 Assessment & Plan A&P Narrative ileopsoas process not cultured or drainged. afebrile though get an aaspirate or culture and use that to guide rx. if empiric rx is your goal, then as lond as bc neg at 48h, empiric po doxy 100 bd for a month ok for now no needd for outpt ID f/u if released . I can see again alidady if need be. Time Spent With Patient Time: Total time spent is greater than 50% in coordination of care (as documented) at patient's floor/unit and/or counseling patient:
--- NOTE | 2025-06-20 09:49 | ESPR_ITS ---
<Statement entered by Kings Hinds MD - 06/21/25 08:38> Patient was examined and case was reviewed with team including attending physician. Note reviewed, I agree with most of its contents and agree with the patient's care as documented by Dr. Jin Patient seen today at the bedside found awake, alert, orientedx3. No overnight events reported. Vital signs stable at this time. No active complaints at this time. Patient is pending possible IR drainage of abcess however, will need to be on IV antibiotic for a few days prior to procedure. ID recommended doxycycline for 1 month if no procedure is to be done. Kings Hinds MD PGY-2 Documentation for date of: 06/20/25 Subjective Subjective Interval history: 06/20/25: BP was noted to be 91/62, IVF was ordered. Patient remains afebrile with otherwise stable vital signs. ID Dr. Irby was consulted who recommended oral doxyxycline 100BID [id number] and repeat imaging if want to treat empirically. If biopsy or drainage is to be performed, patient will be seen by ID on Monday. No need for ID follow up upon discharge but he has to follow up with a surgeon or PCP after discharge. Exam Vital Signs Temp Pulse Resp BP Pulse Ox O2 Del Method 97.4 F 64 18 104/66 99 Room Air 06/20/25 08:00 06/20/25 08:00 06/20/25 08:00 06/20/25 08:00 06/20/25 08:00 06/20/25 08:00 Narrative Exam General: Alert, oriented, in no acute distress HEENT: NCAT, EOMI, conjunctivae without injections, no icteric sclera Neck: Supple, no lymphadenopathy Lungs: Spontaneous breathing, no respiratory distress, no tachypnea, no wheezing Heart: RRR, no murmurs Abdomen: Soft,non-distended, no rigidity or perotinic signs Back/Flank: Tenderness to right flank, no visible mass, no CVA tenderness Neuro: AOx3, CN II-XII intact, no focal motor deficits Skin: Warm, dry Extremities: No edema or cyanosis Objective Labs 06/21/25 04:15 06/21/25 04:15 Labs: Laboratory Results - last 24 hr 06/20/25 06/20/25 04:54 08:51 WBC 12.2 H RBC 4.77 Hgb 15.4 Hct 45.9 MCV 96 MCH 32.3 MCHC 33.6 RDW Std Deviation 43.8 Plt Count 324 Neut % (Auto) 70 Lymph % (Auto) 18 [place] % (Auto) 9 Eos % (Auto) 3 Baso % (Auto) 0 Neut # (Auto) 8.5 H Lymph # (Auto) 2.1 [place] # (Auto) 1.1 H Eos # (Auto) 0.3 Baso # (Auto) 0.0 Immature Gran # (Auto) 0.07 H Absolute Nucleated RBC 0.00 Immature Gran % 1 H Nucleated RBC % 0 Sodium 140 Potassium 4.2 D Chloride 101 Carbon Dioxide 29.0 Anion Gap 10 BUN 12 Creatinine 1.0 Estim Creat Clear Calc 92.3 eGFR > 60 BUN/Creatinine Ratio 12 Glucose 82 Calculated Osmolality 278 Calcium 9.3 Phosphorus 3.3 Magnesium 2.1 Vancomycin Trough 7.2 Quality Measures Quality Measures VTE prophylaxis Assessment & Plan Assessment Current Active Medications: Generic Name Dose Route Start Last Admin Trade Name Freq PRN Reason Stop Dose Admin Acetaminophen 650 mg 06/18/25 23:19 Acetaminophen 325 Mg Tablet PO 07/18/25 23:18 Q6H PRN PAIN SCALE 1-3 (mild Acetaminophen 650 mg 06/18/25 23:19 Acetaminophen 325 Mg Tablet PO 07/18/25 23:18 Q6H PRN Fever >100.4 Hydrocodone Bitart/Acetaminophen 1 tab 06/18/25 23:19 Hydrocodone/Apap 5/325 Tablet PO 06/23/25 23:18 Q4HR PRN PAIN SCALE 4-10(Mod-Sev Enoxaparin Sodium 40 mg 06/19/25 09:00 06/20/25 08:36 Enoxaparin Sod Inj 40 Mg/0.4 Ml Syringe SC 07/03/25 08:59 40 mg QDAY EDI Administration Vancomycin HCl 200 mls @ 120 mls/hr 06/19/25 10:00 06/19/25 21:49 Vancomycin/Water 1gm Ivpb IV 06/26/25 09:59 120 mls/hr BID@1000,2200 EDI Administration Sodium Chloride 1,000 mls @ 75 mls/hr 06/19/25 07:55 06/20/25 04:21 Ns IV 07/19/25 07:54 75 mls/hr .[id number] EDI Administration Piperacillin/Tazobactam/Dextrose 3.375 gm in 50 mls @ 12.5 mls/hr 06/19/25 09:15 06/20/25 05:03 Zosyn IV 06/26/25 09:14 12.5 mls/hr Q8HR EDI Administration Protocol Ondansetron HCl 4 mg 06/18/25 23:19 Ondansetron Inj 2 Mg/Ml Inj 2 Ml IVP 07/18/25 23:18 Q6H PRN NAUSEA OR VOMITING Protocol Pharmacy Consult 1 each 06/19/25 09:00 Vancomycin Pharmacy To Dose 1 Each Each IV 07/19/25 08:59 QDAY PRN CONSULT Plan 44M with no PMHx presenting with 3 weeks of right flank pain. CT revealed a 6x10 cm right psoas + iliacus abscess. Stable vitals. No systemic toxicity. TB on differential given geography and imaging, though he has completed treatment in the past and had negative follow-ups. # Right psoas/iliacus abscess Large 6x10 cm abscess involving right psoas and iliacus on CT Likely infectious origin. Leukocytosis of 14.5 on admission -->13.1 --> 12.2 . Unremarkable CMP and UA. Consulted General Surgery Dr. Mckeon who recommended so surgical intervention at this time and continue with the current plan of IV Abx and IR percutaneous drainage Consulted Orthopedic Surgery Dr. Murrell given the concern for the location of the abscess and close proximity to the spine, who agreed with the current plan and recommended assessing for any neurological deficits which would warrant neurological surgery/ortho consult in the future. IR Dr. Mora was consulted who recommended continuation of current IV antibiotic regimen and repeat CTAP in 5-6 day and reasses as the abscess will most likely shrink. He stated that since the abscess is mainly solid with necrotizing center and minimal fluid, no intervention could be done by IR at this time. IR will reassess in 5-6 days. Blood culture negative Plan: - Continue empiric antibiotics: Zosyn + Vancomycin (Start 06/18) - Repeat CTAP in 5-6 days after start of IV Abx (CT on Saturday 06/23). Will consult IR again for recs - Trend daily CBC - Monitor for signs of systemic infection - Neuro check qday - IVF maintenance 75 # Rule out Tuberculosis Completed TB treatment 17 years ago Multiple negative TB tests since TB still on differential given geography and imaging. CXR negative. Patient is currently asymptomatic. HIV negative. ID Dr. Irby was consulted who recommended oral doxyxycline 100BID [id number] and repeat imaging if want to treat empirically. If biopsy or drainage is to be performed, patient will be seen by ID on Monday. No need for ID follow up upon discharge but he has to follow up with a surgeon or PCP after discharge. Plan: - Pending Quantiferon-TB Gold - Pending culture - Hold RIPE therapy for now, defer to ID Health Maintenance: Dispo: TB precautions DVT prophylaxis: Lovenox GI prophylaxis: Pantoprazole 40 mg IV daily Code status: Full code Diet: Regular diet ----- Plan discussed with attending physician Dr. Wan and senior resident Dr. Ernie Jin DO PGY-1 Attending Provider Attestation/Addendum Abby, Alexsandra Wan DO, attest that I was physically present for the connell portions of the service and evaluated the patient with the resident and I reviewed and discussed the case with the resident and agree with the resident's findings and plans of care as documented above Patient seen and eval this a.m. Patient is asymptomatic regarding upper respiratory symptoms. Unlikely to have TB as patient was treated. Isolation unnecessary. Continue with empiric IV antibiotics at this time. Plan to repeat scan on Monday. Patient may need biopsy of mass if it remains solid versus aspiration.
[2025-06-20] MEDS: VANCOMYCIN/WATER 1250 MG IVPB 250 ML 120 MG IV ×2 (12:00→21:34)
--- NOTE | 2025-06-20 13:00 | ESCONSULT_ITS ---
RE: LILIAN GODFREY : 1980 DATE OF CONSULTATION: 06/20/2025 REFERRING PHYSICIAN: Dr. Ledezma. REASON FOR CONSULTATION: Right flank pain. HISTORY OF PRESENT ILLNESS: The patient has right flank pain and iliopsoas process noted on imaging. He has not had drainage. There has been no fever. He has been on empiric antibiotics. All cultures are negative. pmh neg psh neg fh neg sh neg PE benign exam. minimal rlq discomfort. there is not any drainage. If you wish to treat him empirically, you can give him oral doxycycline 100 mg b.i.d. for a month and repeat his imaging at the end of treatment. On the other hand, if prefer an accurate dx you need a biopsy or drainage procedure. I will have him see me on Monday if he remains. If we send him home, please have him follow up with the surgeons or other doctors. There is no need for him to see Infectious Disease. DT: 10:39:05 TT: 12:51:00 Ref: [id number] - TID: [id number] MTD
--- NOTE | 2025-06-20 15:38 | PC.SS ---
Rounding: Pending TB workup, DC plan home
--- NOTE | 2025-06-20 18:04 | PC.RT ---
Late entry: PT refused sputum induction and say he is unable to produce sputum. Attempted at 11:25 AM.
[2025-06-20 22:17] LABS: Cult AFB Sendout- Sputum* See Sep Rpt
--- NOTE | 2025-06-20 22:17 | PC.RT ---
AFB #2 COLLECTED AT 2200. TAKEN TO LAB AND RECEIVED BY NIKKO. NEXT AFB NEED TO BE COLLECTED AT 0600 06/21/25.
[2025-06-21] VITALS (9 sets, daily range): BP systolic 105–120; BP diastolic 60–67; PULSE 66–83; RESP 16–97; TEMP 36.1–36.6; O2SAT 96–99; BMI 28.7
[2025-06-21] MEDS: PIPER/TAZO 3.375 GM PREMIX 3.375 GM/50 ML BAG IV ×3 (05:29→21:33)
[2025-06-21 05:50] LABS: Basophils # (Auto) 0.0 Thou/mm3 (0.0-0.2); Basophils % (Auto) 0 % (0-2.5); Eosinophils # (Auto) 0.3 Thou/mm3 (0.0-0.5); Eosinophils % (Auto) 3 % (0-10); Hematocrit 44.3 % (41.0-53.0); Hemoglobin 14.8 g/dL (13.5-16.0); Immature Granulocytes Auto 0.05 Thou/mm3 (0.00-0.00); Lymphocytes # (Auto) 2.2 Thou/mm3 (1.0-4.8); Lymphocytes % (Auto) 17 % (10-50); Mean Corpuscular HGB Conc 33.4 g/dl (31.0-37.0); Mean Corpuscular Hemoglobin 31.9 pg (25.0-35.0); Mean Corpuscular Volume 96 fL (80-100); Monocytes # (Auto) 1.4 Thou/mm3 (0.0-0.8); Monocytes % (Auto) 11 % (0-12); Neutrophils # (Auto) 8.9 Thou/mm3 (1.8-7.7); Neutrophils % (Auto) 69 % (37-80); Nucleated Red Blood Cell # 0.00 Thou/mm3 (0.00-0.00); Nucleated Red Blood Cell % 0 /100 WBC (0); Platelet Count 305 Thou/mm3 (140-440); RDW Standard Deviation 43.0 fL (35.1-43.9); Red Blood Count 4.64 Miln/mm3 (4.50-5.90); White Blood Count 12.9 Thou/mm3 (3.8-10.6)
[2025-06-21 06:14] LABS: Anion Gap 10 (7-16); BUN/Creatinine Ratio 12 Ratio (12-20); Blood Urea Nitrogen 12 mg/dL (9-23); Calcium 9.3 mg/dL (8.3-10.6); Carbon Dioxide 26.3 mMol/L (20.0-31.0); Chloride 104 mMol/L (98-107); Creatinine (Component) 1.0 mg/dL (0.6-1.3); Estimated Creatinine Clearance 92.3 mL/min (>60); Glucose 87 mg/dL (74-106); Magnesium 1.9 mg/dL (1.6-2.6); Osmolality,Calculated 278 (275-295); Phosphorous 4.1 mg/dL (2.4-5.1); Potassium 4.3 mMol/L (3.4-5.1); Sodium 140 mMol/L (136-145); eGFR > 60 See Note
[2025-06-21] MEDS: SODIUM CHLORIDE 0.9% 1000 ML 1,000 ML 75 ML IV ×2 (07:40→18:10)
--- NOTE | 2025-06-21 08:29 | ESPR_ITS ---
<Statement entered by Tommy Melo MD - 06/21/25 16:11> Senior Resident Attestation: I supervised/discussed management plan with video intern physician Dr. Jin, and was involved in the care of this patient. I personally saw and examined the patient and discussed the assessment and plan with the entire medicine team, including my attending. I agree with the assessment and plan as documented. Patient continues on IV antibiotics, will reevaluate patient with IR for possible drainage on Monday. Patient's care was discussed with attending physician, Dr. Chapman. Tommy Melo MD PGY-3. Documentation for date of: 06/21/25 Subjective Subjective Interval history: 06/21/25: KAMILA. NANCYS. Patient remains afebrile with no complaints at this time. Currently pending TB sputum culture. We will repeat CT abd&pelvis on Saturday 06/23 and reassess. Exam Vital Signs Temp Pulse Resp BP Pulse Ox O2 Del Method 97.3 F 66 16 106/67 96 Room Air 06/21/25 04:00 06/21/25 04:00 06/21/25 04:00 06/21/25 04:00 06/21/25 04:00 06/21/25 04:00 Narrative Exam General: Alert, oriented, in no acute distress HEENT: NCAT, EOMI, conjunctivae without injections, no icteric sclera Neck: Supple, no lymphadenopathy Lungs: Spontaneous breathing, no respiratory distress, no tachypnea, no wheezing Heart: RRR, no murmurs Abdomen: Soft,non-distended, no rigidity or perotinic signs Back/Flank: Tenderness to right flank, no visible mass, no CVA tenderness Neuro: AOx3, CN II-XII intact, no focal motor deficits Skin: Warm, dry Extremities: No edema or cyanosis Objective Labs 06/22/25 04:20 06/22/25 04:20 Labs: Laboratory Results - last 24 hr 06/20/25 06/21/25 08:51 04:15 WBC 12.9 H RBC 4.64 Hgb 14.8 Hct 44.3 MCV 96 MCH 31.9 MCHC 33.4 RDW Std Deviation 43.0 Plt Count 305 Neut % (Auto) 69 Lymph % (Auto) 17 [place] % (Auto) 11 Eos % (Auto) 3 Baso % (Auto) 0 Neut # (Auto) 8.9 H Lymph # (Auto) 2.2 Good[place] # (Auto) 1.4 H Eos # (Auto) 0.3 Baso # (Auto) 0.0 Immature Gran # (Auto) 0.05 H Absolute Nucleated RBC 0.00 Immature Gran % 0 Nucleated RBC % 0 Sodium 140 Potassium 4.3 Chloride 104 Carbon Dioxide 26.3 Anion Gap 10 BUN 12 Creatinine 1.0 Estim Creat Clear Calc 92.3 eGFR > 60 BUN/Creatinine Ratio 12 Glucose 87 Calculated Osmolality 278 Calcium 9.3 Phosphorus 4.1 Magnesium 1.9 Vancomycin Trough 7.2 Quality Measures Quality Measures VTE prophylaxis Assessment & Plan Assessment Current Active Medications: Generic Name Dose Route Start Last Admin Trade Name Freq PRN Reason Stop Dose Admin Acetaminophen 650 mg 06/18/25 23:19 Acetaminophen 325 Mg Tablet PO 07/18/25 23:18 Q6H PRN PAIN SCALE 1-3 (mild Acetaminophen 650 mg 06/18/25 23:19 Acetaminophen 325 Mg Tablet PO 07/18/25 23:18 Q6H PRN Fever >100.4 Hydrocodone Bitart/Acetaminophen 1 tab 06/18/25 23:19 Hydrocodone/Apap 5/325 Tablet PO 06/23/25 23:18 Q4HR PRN PAIN SCALE 4-10(Mod-Sev Enoxaparin Sodium 40 mg 06/19/25 09:00 06/20/25 08:36 Enoxaparin Sod Inj 40 Mg/0.4 Ml Syringe SC 07/03/25 08:59 40 mg QDAY EDI Administration Sodium Chloride 1,000 mls @ 75 mls/hr 06/19/25 07:55 06/21/25 07:40 Ns IV 07/19/25 07:54 75 mls/hr .[id number] EDI Administration Piperacillin/Tazobactam/Dextrose 3.375 gm in 50 mls @ 12.5 mls/hr 06/19/25 09:15 06/21/25 05:29 Zosyn IV 06/26/25 09:14 12.5 mls/hr Q8HR EDI Administration Protocol Vancomycin HCl/Dextrose 250 mls @ 120 mls/hr 06/21/25 10:00 Vancomycin/D5w 1,250 Mg Ivpb IV 06/28/25 09:59 Q12H EDI Ondansetron HCl 4 mg 06/18/25 23:19 Ondansetron Inj 2 Mg/Ml Inj 2 Ml IVP 07/18/25 23:18 Q6H PRN NAUSEA OR VOMITING Protocol Pharmacy Consult 1 each 06/19/25 09:00 Vancomycin Pharmacy To Dose 1 Each Each IV 07/19/25 08:59 QDAY PRN CONSULT Plan 44M with no PMHx presenting with 3 weeks of right flank pain. CT revealed a 6x10 cm right psoas + iliacus abscess. Stable vitals. No systemic toxicity. TB on differential given geography and imaging, though he has completed treatment in the past and had negative follow-ups. # Right psoas/iliacus abscess Large 6x10 cm abscess involving right psoas and iliacus on CT Likely infectious origin. Leukocytosis of 14.5 on admission -->13.1 --> 12.2 -->12.9 . Unremarkable CMP and UA. Consulted General Surgery Dr. Mckeon who recommended so surgical intervention at this time and continue with the current plan of IV Abx and IR percutaneous drainage Consulted Orthopedic Surgery Dr. Murrell given the concern for the location of the abscess and close proximity to the spine, who agreed with the current plan and recommended assessing for any neurological deficits which would warrant neurological surgery/ortho consult in the future. IR Dr. Mora was consulted who recommended continuation of current IV antibiotic regimen and repeat CTAP in 5-6 day and reasses as the abscess will most likely shrink. He stated that since the abscess is mainly solid with necrotizing center and minimal fluid, no intervention could be done by IR at this time. IR will reassess in 5-6 days. Blood culture negative Negative HIV Plan: - Continue empiric antibiotics: Zosyn + Vancomycin (Start 06/18) - Repeat CTAP in 5-6 days after start of IV Abx (CT on Saturday 06/23). 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 CXR negative. Patient is currently asymptomatic. HIV negative. ID Dr. Irby was consulted who recommended oral doxyxycline 100BID [id number] and repeat imaging if want to treat empirically. If biopsy or drainage is to be performed, patient will be seen by ID on Monday. No need for ID follow up upon discharge but he has to follow up with a surgeon or PCP after discharge. Plan: - Pending Quantiferon-TB Gold - Pending culture - Hold RIPE therapy for now, defer to ID Health Maintenance: Dispo: TB precautions DVT prophylaxis: Lovenox GI prophylaxis: Pantoprazole 40 mg IV daily Code status: Full code Diet: Regular diet ----- Plan discussed with attending physician Dr. Chapman and senior resident Dr. Kameron Jin, DO PGY-1 Attending Provider Attestation/Addendum I Serjio Chapman MD reviewed the note and agree with the resident's assessment & plan with modifications/additions/exceptions as below. I have personally reviewed labs, imaging, home meds/prior records, examined the patient, formulated and discussed management plan with the IM team. Patient admitted for right psoas abscess of undetermined etiology, blood cultures have been negative, IR evaluated however unable to drain due to heterogeneity of the lesion. Continue vancomycin and Zosyn, repeat CT abdomen/pelvis tomorrow for follow-up, will consider further infectious workup including HIV, hepatitis panel, STD panel for other potential etiologies.
[2025-06-21] MEDS: ENOXAPARIN SOD INJ 40 MG/0.4 ML SYRINGE SC (09:32)
[2025-06-21] MEDS: VANCOMYCIN/D5W 1,250 MG IVPB 250 ML 120 MG IV ×2 (09:42→21:32)
[2025-06-21] MEDS: SODIUM CHLORIDE RT 10% 15 ML NEBU 5 ML INH ×2 (10:16→22:54)
[2025-06-21 14:18] LABS: Syphilis Nonreactive (Nonreactive)
[2025-06-21 22:58] LABS: Cult AFB Sendout- Sputum* See Sep Rpt
--- NOTE | 2025-06-21 23:25 | PC.RT ---
PT GIVEN A SECOND SOD CHRLD INDUCTION TX WITHOUT SUCCESS. PT UNABLE TO COUGH ANYTHING UP FOR 3RD AND FINAL AFB SAMPLE. PT MADE AWARE THE PROCESS OF AFB COLLECTIONS MAY START OVER. PT STATED HE IS JUST DRY AND HAS NOTHING TO COUGH UP. DR MILLER.
[2025-06-22] VITALS (7 sets, daily range): BP systolic 105–120; BP diastolic 66–80; PULSE 67–81; RESP 17–98; TEMP 36.4–37.6; O2SAT 96–97
[2025-06-22] MEDS: PIPER/TAZO 3.375 GM PREMIX 3.375 GM/50 ML BAG IV ×3 (05:23→22:58)
--- NOTE | 2025-06-22 05:38 | PC.NURSE ---
BP 179/94 and HR 70, no complaints of headache or dizziness, no other symptoms reported by patient. Dr. Willson was made aware, no new orders received at this time. MD stated to wait for morning doses of blood pressure meds. Will monitor patient.
[2025-06-22 06:02] LABS: Basophils # (Auto) 0.0 Thou/mm3 (0.0-0.2); Basophils % (Auto) 0 % (0-2.5); Eosinophils # (Auto) 0.4 Thou/mm3 (0.0-0.5); Eosinophils % (Auto) 3 % (0-10); Hematocrit 43.0 % (41.0-53.0); Hemoglobin 14.1 g/dL (13.5-16.0); Immature Granulocytes Auto 0.06 Thou/mm3 (0.00-0.00); Lymphocytes # (Auto) 2.3 Thou/mm3 (1.0-4.8); Lymphocytes % (Auto) 18 % (10-50); Mean Corpuscular HGB Conc 32.8 g/dl (31.0-37.0); Mean Corpuscular Hemoglobin 31.3 pg (25.0-35.0); Mean Corpuscular Volume 96 fL (80-100); Monocytes # (Auto) 1.5 Thou/mm3 (0.0-0.8); Monocytes % (Auto) 11 % (0-12); Neutrophils # (Auto) 8.6 Thou/mm3 (1.8-7.7); Neutrophils % (Auto) 67 % (37-80); Nucleated Red Blood Cell # 0.00 Thou/mm3 (0.00-0.00); Nucleated Red Blood Cell % 0 /100 WBC (0); Platelet Count 302 Thou/mm3 (140-440); RDW Standard Deviation 43.0 fL (35.1-43.9); Red Blood Count 4.50 Miln/mm3 (4.50-5.90); White Blood Count 12.9 Thou/mm3 (3.8-10.6)
[2025-06-22 06:41] LABS: Alanine Aminotransferase 12 U/L (10-49); Albumin, Serum 3.8 gm/dL (3.5-5.0); Anion Gap 10 (7-16); Aspartate Amino Transferase 15 U/L (0-34); BUN/Creatinine Ratio 11 Ratio (12-20); Bilirubin,Total 0.5 mg/dL (0.3-1.2); Blood Urea Nitrogen 10 mg/dL (9-23); Calcium 9.3 mg/dL (8.3-10.6); Carbon Dioxide 27.5 mMol/L (20.0-31.0); Chloride 104 mMol/L (98-107); Creatinine (Component) 0.9 mg/dL (0.6-1.3); Estimated Creatinine Clearance 102.5 mL/min (>60); Glucose 85 mg/dL (74-106); Magnesium 1.9 mg/dL (1.6-2.6); Osmolality,Calculated 279 (275-295); Potassium 4.0 mMol/L (3.4-5.1); Sodium 141 mMol/L (136-145); Total Protein 6.7 gm/dL (5.7-8.2); eGFR > 60 See Note
[2025-06-22 06:42] LABS: Albumin/Globulin Ratio 1.3 (1.2-2.2); Alkaline Phosphatase 64 U/L (46-116); Calcium (Corrected) 9.5 mg/dL (8.5-10.1); Globulin 2.9 gm/dL (2.3-3.5)
[2025-06-22] MEDS: ENOXAPARIN SOD INJ 40 MG/0.4 ML SYRINGE SC (08:19)
[2025-06-22 08:57] LABS: Chlamydia trachomatis PCR Negative (Not Detect); Neisseria Gonorrhoeae DNA PCR Negative (Not Detect); Trichomonas Negative (Negative)
--- NOTE | 2025-06-22 10:03 | ESPR_ITS ---
<Statement entered by Tommy Melo MD - 06/22/25 15:53> Senior Resident Attestation: I supervised/discussed management plan with medical student Mert, and was involved in the care of this patient. I personally saw and examined the patient and discussed the assessment and plan with the entire medicine team, including my attending. I agree with the assessment and plan as documented. Patient reports no new complaints. He continues on Zosyn and vancomycin IV. Patient will be reevaluated by IR tomorrow. Patient's care was discussed with attending physician, Dr. Chapman. Tommy Melo MD PGY-3. Documentation for date of: 06/22/25 Subjective Subjective Interval history: pt was seen at bedside and is alert and oriented x3. he is notified that his results for his sputum culture and afb test is still pending. he states that he is feeling fine and hasnt noticed any night sweats, productive cough, or trouble breathing. he does not have any further questions or concerns at this time Exam Vital Signs Temp Pulse Resp BP Pulse Ox O2 Del Method 97.6 F 80 18 119/80 97 Room Air 06/22/25 07:17 06/22/25 07:17 06/22/25 07:17 06/22/25 07:17 06/22/25 07:17 06/22/25 07:17 Narrative Exam General: Alert, oriented, in no acute distress HEENT: NCAT, EOMI, conjunctivae without injections, no icteric sclera Neck: Supple, no lymphadenopathy Lungs: Spontaneous breathing, no respiratory distress, no tachypnea, no wheezing Heart: RRR, no murmurs Abdomen: Soft,non-distended, no rigidity or perotinic signs Back/Flank: Tenderness to right flank, no visible mass, no CVA tenderness Neuro: AOx3, CN II-XII intact, no focal motor deficits Skin: Warm, dry Extremities: No edema or cyanosis Objective Labs 06/22/25 04:20 06/22/25 04:20 Labs: Laboratory Results - last 24 hr 06/21/25 06/21/25 06/22/25 04:15 16:12 04:20 WBC 12.9 H RBC 4.50 Hgb 14.1 Hct 43.0 MCV 96 MCH 31.3 MCHC 32.8 RDW Std Deviation 43.0 Plt Count 302 Neut % (Auto) 67 Lymph % (Auto) 18 [place] % (Auto) 11 Eos % (Auto) 3 Baso % (Auto) 0 Neut # (Auto) 8.6 H Lymph # (Auto) 2.3 [place] # (Auto) 1.5 H Eos # (Auto) 0.4 Baso # (Auto) 0.0 Immature Gran # (Auto) 0.06 H Absolute Nucleated RBC 0.00 Immature Gran % 1 H Nucleated RBC % 0 Sodium 141 Potassium 4.0 Chloride 104 Carbon Dioxide 27.5 Anion Gap 10 BUN 10 Creatinine 0.9 Estim Creat Clear Calc 102.5 eGFR > 60 BUN/Creatinine Ratio 11 L Glucose 85 Calculated Osmolality 279 Calcium 9.3 Corrected Calcium 9.5 Magnesium 1.9 Total Bilirubin 0.5 AST 15 ALT 12 Alkaline Phosphatase 64 Total Protein 6.7 Albumin 3.8 Globulin 2.9 Albumin/Globulin Ratio 1.3 Syphilis Serology Nonreactive Chlam trachomat DNA PCR Negative N.gonorrhoeae DNA (PCR) Negative Trichomonas DNA Probe Negative Quality Measures Quality Measures VTE prophylaxis Assessment & Plan Assessment Current Active Medications: Generic Name Dose Route Start Last Admin Trade Name Freq PRN Reason Stop Dose Admin Acetaminophen 650 mg 06/18/25 23:19 Acetaminophen 325 Mg Tablet PO 07/18/25 23:18 Q6H PRN PAIN SCALE 1-3 (mild Acetaminophen 650 mg 06/18/25 23:19 Acetaminophen 325 Mg Tablet PO 07/18/25 23:18 Q6H PRN Fever >100.4 Hydrocodone Bitart/Acetaminophen 1 tab 06/18/25 23:19 Hydrocodone/Apap 5/325 Tablet PO 06/23/25 23:18 Q4HR PRN PAIN SCALE 4-10(Mod-Sev Enoxaparin Sodium 40 mg 06/19/25 09:00 06/22/25 08:19 Enoxaparin Sod Inj 40 Mg/0.4 Ml Syringe SC 07/03/25 08:59 40 mg QDAY EDI Administration Piperacillin/Tazobactam/Dextrose 3.375 gm in 50 mls @ 12.5 mls/hr 06/19/25 09:15 06/22/25 05:23 Zosyn IV 06/26/25 09:14 12.5 mls/hr Q8HR EDI Administration Protocol Vancomycin HCl/Dextrose 250 mls @ 120 mls/hr 06/21/25 10:00 06/21/25 21:32 Vancomycin/D5w 1,250 Mg Ivpb IV 06/28/25 09:59 120 mls/hr Q12H EDI Administration Ondansetron HCl 4 mg 06/18/25 23:19 Ondansetron Inj 2 Mg/Ml Inj 2 Ml IVP 07/18/25 23:18 Q6H PRN NAUSEA OR VOMITING Protocol Pharmacy Consult 1 each 06/19/25 09:00 Vancomycin Pharmacy To Dose 1 Each Each IV 07/19/25 08:59 QDAY PRN CONSULT Plan 44M with no PMHx presenting with 3 weeks of right flank pain. CT revealed a 6x10 cm right psoas + iliacus abscess. Stable vitals. No systemic toxicity. TB on differential given geography and imaging, though he has completed treatment in the past and had negative follow-ups. # Right psoas/iliacus abscess Large 6x10 cm abscess involving right psoas and iliacus on CT Likely infectious origin. Leukocytosis of 14.5 on admission -->13.1 --> 12.2 -->12.9 . Unremarkable CMP and UA. Consulted General Surgery Dr. Mckeon who recommended so surgical intervention at this time and continue with the current plan of IV Abx and IR percutaneous drainage Consulted Orthopedic Surgery Dr. Murrell given the concern for the location of the abscess and close proximity to the spine, who agreed with the current plan and recommended assessing for any neurological deficits which would warrant neurological surgery/ortho consult in the future. IR Dr. Mora was consulted who recommended continuation of current IV antibiotic regimen and repeat CTAP in 5-6 day and reasses as the abscess will most likely shrink. He stated that since the abscess is mainly solid with necrotizing center and minimal fluid, no intervention could be done by IR at this time. IR will reassess in 5-6 days. Blood culture negative Negative HIV Plan: - Continue empiric antibiotics: Zosyn + Vancomycin (Start 06/18) - Repeat CTAP in 5-6 days after start of IV Abx (CT on Saturday 06/23). 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 CXR negative. Patient is currently asymptomatic. HIV negative. ID Dr. Irby was consulted who recommended oral doxyxycline 100BID [id number] and repeat imaging if want to treat empirically. If biopsy or drainage is to be performed, patient will be seen by ID on Monday. No need for ID follow up upon discharge but he has to follow up with a surgeon or PCP after discharge. Plan: - Pending Quantiferon-TB Gold - Pending culture - Hold RIPE therapy for now, defer to ID Health Maintenance: Dispo: TB precautions DVT prophylaxis: Lovenox GI prophylaxis: Pantoprazole 40 mg IV daily Code status: Full code Diet: Regular diet Plan was reviewed by senior resident Dr. Rouse and attending physician Dr. Ari Benoit (Med Student) Attending Provider Attestation/Addendum I Serjio Chapman MD reviewed the note and agree with the resident's assessment & plan with modifications/additions/exceptions as below. I have personally reviewed labs, imaging, home meds/prior records, examined the patient, formulated and discussed management plan with the IM team. Patient admitted for right psoas abscess of undetermined etiology, blood cultures have been negative, IR evaluated however unable to drain due to heterogeneity of the lesion. Continue vancomycin and Zosyn, repeat CT abdomen/pelvis today for follow-up, follow-up with infectious workup including HIV, hepatitis panel, STD panel for other potential etiologies. Consult ID regarding antibiotic selection tomorrow following CT scan results
[2025-06-22 10:07] LABS: Phosphorous 2.5 mg/dL (2.4-5.1); Vancomycin,Trough 10.3 mcg/mL (5.0-10.0)
[2025-06-22] MEDS: VANCOMYCIN/NS 750 MG IVPB 750 MG/150 ML BAG 120 MG IV ×2 (11:44→21:14)
[2025-06-22 20:13] LABS: Hepatitis A Antibody IgM Non Reactive (Non React); Hepatitis B Core Antibody IgM Non Reactive (Non React); Hepatitis B Surface Antigen Non Reactive (Non React); Hepatitis C Antibody Non Reactive (Non React)
[2025-06-23] VITALS: BP 97/57; PULSE 76; RESP 20; TEMP 37.2; O2SAT 95
[2025-06-23 04:00] VITALS: BP 99/65; PULSE 70; RESP 18; TEMP 36.3; O2SAT 97
[2025-06-23] MEDS: VANCOMYCIN/NS 750 MG IVPB 750 MG/150 ML BAG 120 MG IV (05:18)
[2025-06-23 06:03] LABS: Basophils # (Auto) 0.0 Thou/mm3 (0.0-0.2); Basophils % (Auto) 0 % (0-2.5); Eosinophils # (Auto) 0.4 Thou/mm3 (0.0-0.5); Eosinophils % (Auto) 3 % (0-10); Hematocrit 43.1 % (41.0-53.0); Hemoglobin 14.7 g/dL (13.5-16.0); Immature Granulocytes Auto 0.06 Thou/mm3 (0.00-0.00); Lymphocytes # (Auto) 2.2 Thou/mm3 (1.0-4.8); Lymphocytes % (Auto) 17 % (10-50); Mean Corpuscular HGB Conc 34.1 g/dl (31.0-37.0); Mean Corpuscular Hemoglobin 32.3 pg (25.0-35.0); Mean Corpuscular Volume 95 fL (80-100); Monocytes # (Auto) 1.3 Thou/mm3 (0.0-0.8); Monocytes % (Auto) 10 % (0-12); Neutrophils # (Auto) 9.2 Thou/mm3 (1.8-7.7); Neutrophils % (Auto) 70 % (37-80); Nucleated Red Blood Cell # 0.00 Thou/mm3 (0.00-0.00); Nucleated Red Blood Cell % 0 /100 WBC (0); Platelet Count 315 Thou/mm3 (140-440); RDW Standard Deviation 42.6 fL (35.1-43.9); Red Blood Count 4.55 Miln/mm3 (4.50-5.90); White Blood Count 13.2 Thou/mm3 (3.8-10.6)
[2025-06-23 06:35] LABS: Alanine Aminotransferase 11 U/L (10-49); Albumin, Serum 3.7 gm/dL (3.5-5.0); Albumin/Globulin Ratio 1.0 (1.2-2.2); Alkaline Phosphatase 64 U/L (46-116); Anion Gap 12 (7-16); Aspartate Amino Transferase 18 U/L (0-34); BUN/Creatinine Ratio 9 Ratio (12-20); Bilirubin,Total 0.7 mg/dL (0.3-1.2); Blood Urea Nitrogen 9 mg/dL (9-23); Calcium 9.1 mg/dL (8.3-10.6); Calcium (Corrected) 9.3 mg/dL (8.5-10.1); Carbon Dioxide 27.4 mMol/L (20.0-31.0); Chloride 102 mMol/L (98-107); Creatinine (Component) 1.0 mg/dL (0.6-1.3); Estimated Creatinine Clearance 92.3 mL/min (>60); Globulin 3.7 gm/dL (2.3-3.5); Glucose 78 mg/dL (74-106); Magnesium 2.0 mg/dL (1.6-2.6); Osmolality,Calculated 278 (275-295); Phosphorous 3.1 mg/dL (2.4-5.1); Potassium 3.8 mMol/L (3.4-5.1); Sodium 141 mMol/L (136-145); Total Protein 7.4 gm/dL (5.7-8.2); eGFR > 60 See Note
[2025-06-23] MEDS: PIPER/TAZO 3.375 GM PREMIX 3.375 GM/50 ML BAG IV ×3 (07:11→23:21)
--- NOTE | 2025-06-23 07:53 | ESPR_ITS ---
<Statement entered by Yeison Ledezma MD - 06/27/25 15:07> I reviewed above note and agree with findings and plans. I have also personally examined the patient with medicine team and went over assessment and plan with medical team including paid internship and resident physician. <Statement entered by Kings Hinds MD - 06/23/25 16:27> Patient was examined and case was reviewed with team including attending physician. Note reviewed, I agree with most of its contents and agree with the patient's care as documented by MS Metr Benoit Patient seen today at the bedside found awake, alert, orientedx3. No overnight events reported. Vitals and labs reviewed. AFBs and sputum culture still pending at this time. As patient has completed 5 days of IV antibiotics follow- up CT was ordered and possible IR drainage today. Case discussed with my attending Dr. Brisa Hinds MD PGY-2 Disclaimer: Despite multiple revisions, due to the dictation software being used, the document bellow may not be free of grammatical errors including phonetic/typographic errors. However, this does not deter from our commitment to providing health care in the patient's best interest in mind. Documentation for date of: 06/23/25 Subjective Subjective Interval history: pt was seen at bedside and is alert and oriented x3. he is notified that his results for his sputum culture and afb test is still pending. pt is notified that he will likely be re-evaluated by IR for management of his psoas abscess. pt states that he is feeling the same as yesterday without any new concerns since yesterday. he does not have any further questions or concerns at this time Exam Vital Signs Temp Pulse Resp BP Pulse Ox O2 Del Method 97.4 F 70 18 99/65 97 Room Air 06/23/25 04:00 06/23/25 04:00 06/23/25 04:00 06/23/25 04:00 06/23/25 04:00 06/23/25 04:00 Narrative Exam General: Alert, oriented, in no acute distress HEENT: NCAT, EOMI, conjunctivae without injections, no icteric sclera Neck: Supple, no lymphadenopathy Lungs: Spontaneous breathing, no respiratory distress, no tachypnea, no wheezing Heart: RRR, no murmurs Abdomen: Soft,non-distended, no rigidity or perotinic signs Back/Flank: Tenderness to right flank, no visible mass, no CVA tenderness Neuro: AOx3, CN II-XII intact, no focal motor deficits Skin: Warm, dry Extremities: No edema or cyanosis Objective Labs 06/23/25 04:20 06/23/25 04:20 Labs: Laboratory Results - last 24 hr 06/19/25 06/21/25 06/21/25 01:16 04:15 16:12 WBC RBC Hgb Hct MCV MCH MCHC RDW Std Deviation Plt Count Neut % (Auto) Lymph % (Auto) [place] % (Auto) Eos % (Auto) Baso % (Auto) Neut # (Auto) Lymph # (Auto) [place] # (Auto) Eos # (Auto) Baso # (Auto) Immature Gran # (Auto) Absolute Nucleated RBC Immature Gran % Nucleated RBC % Sodium Potassium Chloride Carbon Dioxide Anion Gap BUN Creatinine Estim Creat Clear Calc eGFR BUN/Creatinine Ratio Glucose Calculated Osmolality Calcium Corrected Calcium Phosphorus Magnesium Total Bilirubin AST ALT Alkaline Phosphatase Total Protein Albumin Globulin Albumin/Globulin Ratio Vancomycin Trough Chlam trachomat DNA PCR Negative Hepatitis A IgM Ab Non Reactive Hep Bs Antigen Non Reactive Hep B Core IgM Ab Non Reactive Hepatitis C Antibody Non Reactive Mycobacterial Culture See Sep Rpt N.gonorrhoeae DNA (PCR) Negative Trichomonas DNA Probe Negative 06/22/25 06/23/25 08:55 04:20 WBC 13.2 H RBC 4.55 Hgb 14.7 Hct 43.1 MCV 95 MCH 32.3 MCHC 34.1 RDW Std Deviation 42.6 Plt Count 315 Neut % (Auto) 70 Lymph % (Auto) 17 [place] % (Auto) 10 Eos % (Auto) 3 Baso % (Auto) 0 Neut # (Auto) 9.2 H Lymph # (Auto) 2.2 [place] # (Auto) 1.3 H Eos # (Auto) 0.4 Baso # (Auto) 0.0 Immature Gran # (Auto) 0.06 H Absolute Nucleated RBC 0.00 Immature Gran % 1 H Nucleated RBC % 0 Sodium 141 Potassium 3.8 Chloride 102 Carbon Dioxide 27.4 Anion Gap 12 BUN 9 Creatinine 1.0 Estim Creat Clear Calc 92.3 eGFR > 60 BUN/Creatinine Ratio 9 L Glucose 78 Calculated Osmolality 278 Calcium 9.1 Corrected Calcium 9.3 Phosphorus 2.5 3.1 Magnesium 2.0 Total Bilirubin 0.7 AST 18 ALT 11 Alkaline Phosphatase 64 Total Protein 7.4 Albumin 3.7 Globulin 3.7 H Albumin/Globulin Ratio 1.0 L Vancomycin Trough 10.3 H Chlam trachomat DNA PCR Hepatitis A IgM Ab Hep Bs Antigen Hep B Core IgM Ab Hepatitis C Antibody Mycobacterial Culture N.gonorrhoeae DNA (PCR) Trichomonas DNA Probe Quality Measures Quality Measures VTE prophylaxis Assessment & Plan Assessment Current Active Medications: Generic Name Dose Route Start Last Admin Trade Name Freq PRN Reason Stop Dose Admin Acetaminophen 650 mg 06/18/25 23:19 Acetaminophen 325 Mg Tablet PO 07/18/25 23:18 Q6H PRN PAIN SCALE 1-3 (mild Acetaminophen 650 mg 06/18/25 23:19 Acetaminophen 325 Mg Tablet PO 07/18/25 23:18 Q6H PRN Fever >100.4 Hydrocodone Bitart/Acetaminophen 1 tab 06/18/25 23:19 Hydrocodone/Apap 5/325 Tablet PO 06/23/25 23:18 Q4HR PRN PAIN SCALE 4-10(Mod-Sev Enoxaparin Sodium 40 mg 06/19/25 09:00 06/22/25 08:19 Enoxaparin Sod Inj 40 Mg/0.4 Ml Syringe SC 07/03/25 08:59 40 mg QDAY EDI Administration Piperacillin/Tazobactam/Dextrose 3.375 gm in 50 mls @ 12.5 mls/hr 06/19/25 09:15 06/23/25 07:11 Zosyn IV 06/26/25 09:14 12.5 mls/hr Q8HR EDI Administration Protocol Vancomycin/Sodium Chloride 750 mg in 150 mls @ 120 mls/hr 06/22/25 10:30 06/23/25 05:18 Vancomycin/Ns 750 Mg Ivpb IV 06/29/25 10:29 120 mls/hr Q8HR EDI Administration Ondansetron HCl 4 mg 06/18/25 23:19 Ondansetron Inj 2 Mg/Ml Inj 2 Ml IVP 07/18/25 23:18 Q6H PRN NAUSEA OR VOMITING Protocol Pharmacy Consult 1 each 06/19/25 09:00 Vancomycin Pharmacy To Dose 1 Each Each IV 07/19/25 08:59 QDAY PRN CONSULT Plan 44M with no PMHx presenting with 3 weeks of right flank pain. CT revealed a 6x10 cm right psoas + iliacus abscess. Stable vitals. No systemic toxicity. TB on differential given geography and imaging, though he has completed treatment in the past and had negative follow-ups. # Right psoas/iliacus abscess Large 6x10 cm abscess involving right psoas and iliacus on CT Likely infectious origin. Leukocytosis of 14.5 on admission -->13.1 --> 12.2 -->12.9 -> 13.2 . Unremarkable CMP and UA. Consulted General Surgery Dr. Mckeon who recommended so surgical intervention at this time and continue with the current plan of IV Abx and IR percutaneous drainage IR to reassess today to determine if abscess can be percutaneously drained, appreciate recommendations CT abdomen pelvis reordered today: results show no major change in the size of the mass, with slightly more necrotic center noted on image. Blood culture negative for growth x2 at 48 hour ying Negative HIV STD panel resulted negative for chlamydia, trichamonas, and gonorrhea Plan: - Continue empiric antibiotics: Zosyn + Vancomycin (Start 06/18) - Trend daily CBC - Monitor for signs of systemic infection - Neuro check qday # Rule out Tuberculosis Completed TB treatment 17 years ago Multiple negative TB tests since TB still on differential given geography and imaging. CXR negative. Patient is currently asymptomatic. HIV negative. ID Dr. Irby was consulted who recommended oral doxyxycline 100BID [id number] and repeat imaging if want to treat empirically. If biopsy or drainage is to be performed, patient will be seen by ID on Monday. No need for ID follow up upon discharge but he has to follow up with a surgeon or PCP after discharge. Plan: - Pending Quantiferon-TB Gold - Pending culture x2. Initial culture resulted negative for Acid Fast Bacilli growth - Hold RIPE therapy for now, defer to ID Health Maintenance: Dispo: TB precautions DVT prophylaxis: Lovenox GI prophylaxis: Pantoprazole 40 mg IV daily Code status: Full code Diet: Regular diet Plan was reviewed by senior resident Dr. Rouse and attending physician Dr. Brisa Benoit (Med Student)
[2025-06-23 08:00] VITALS: BP 109/71; PULSE 71; RESP 19; TEMP 37; O2SAT 98
[2025-06-23] MEDS: ENOXAPARIN SOD INJ 40 MG/0.4 ML SYRINGE SC (08:52)
--- NOTE | 2025-06-23 09:14 | PD.IDPROG ---
Subjective Subjective Interval history: await bx. single sputum pcr neg for tb. 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 on empiric zosyn /vanco from primary team Exam Vital Signs Temp Pulse Resp BP Pulse Ox O2 Del Method 98.6 F 71 19 109/71 98 Room Air 06/23/25 08:00 06/23/25 08:00 06/23/25 08:00 06/23/25 08:00 06/23/25 08:00 06/23/25 08:00 Narrative Exam limited visit Objective - Internal Medicine Labs 06/23/25 04:20 06/23/25 04:20 Labs: Laboratory Results - last 24 hr 06/19/25 06/21/25 06/22/25 01:16 04:15 08:55 WBC RBC Hgb Hct MCV MCH MCHC RDW Std Deviation Plt Count Neut % (Auto) Lymph % (Auto) [place] % (Auto) Eos % (Auto) Baso % (Auto) Neut # (Auto) Lymph # (Auto) [place] # (Auto) Eos # (Auto) Baso # (Auto) Immature Gran # (Auto) Absolute Nucleated RBC Immature Gran % Nucleated RBC % Sodium Potassium Chloride Carbon Dioxide Anion Gap BUN Creatinine Estim Creat Clear Calc eGFR BUN/Creatinine Ratio Glucose Calculated Osmolality Calcium Corrected Calcium Phosphorus 2.5 Magnesium Total Bilirubin AST ALT Alkaline Phosphatase Total Protein Albumin Globulin Albumin/Globulin Ratio Vancomycin Trough 10.3 H Hepatitis A IgM Ab Non Reactive Hep Bs Antigen Non Reactive Hep B Core IgM Ab Non Reactive Hepatitis C Antibody Non Reactive Mycobacterial Culture See Sep Rpt 06/23/25 04:20 WBC 13.2 H RBC 4.55 Hgb 14.7 Hct 43.1 MCV 95 MCH 32.3 MCHC 34.1 RDW Std Deviation 42.6 Plt Count 315 Neut % (Auto) 70 Lymph % (Auto) 17 [place] % (Auto) 10 Eos % (Auto) 3 Baso % (Auto) 0 Neut # (Auto) 9.2 H Lymph # (Auto) 2.2 [place] # (Auto) 1.3 H Eos # (Auto) 0.4 Baso # (Auto) 0.0 Immature Gran # (Auto) 0.06 H Absolute Nucleated RBC 0.00 Immature Gran % 1 H Nucleated RBC % 0 Sodium 141 Potassium 3.8 Chloride 102 Carbon Dioxide 27.4 Anion Gap 12 BUN 9 Creatinine 1.0 Estim Creat Clear Calc 92.3 eGFR > 60 BUN/Creatinine Ratio 9 L Glucose 78 Calculated Osmolality 278 Calcium 9.1 Corrected Calcium 9.3 Phosphorus 3.1 Magnesium 2.0 Total Bilirubin 0.7 AST 18 ALT 11 Alkaline Phosphatase 64 Total Protein 7.4 Albumin 3.7 Globulin 3.7 H Albumin/Globulin Ratio 1.0 L Vancomycin Trough Hepatitis A IgM Ab Hep Bs Antigen Hep B Core IgM Ab Hepatitis C Antibody Mycobacterial Culture Assessment & Plan A&P Narrative ileopsoas process not cultured or drainged. afebrile though get an aspirate or culture and use that to guide rx. if empiric rx is your goal, then as long as bc neg at 48h, empiric po doxy 100 bd for a month ok for now no need for outpt ID f/u if released. if radiology is correct, then health department manages mycobacterial infections. I can see again Monday if still here. Time Spent With Patient Time: Total time spent is greater than 50% in coordination of care (as documented) at patient's floor/unit and/or counseling patient:
--- NOTE | 2025-06-23 11:10 | XR_ITS ---
Examination: CT abdomen with intravenous contrast CT pelvis with intravenous contrast 2-D coronal reconstructions 2-D sagittal reconstructions Date and time of exam:June 23, 2025, 1234 hours INDICATIONS: Abdominal pain pelvic pain this week, CT abdomen and pelvis June 18, 2025 enlarged right psoas iliacus muscle. CTDI: vol (mGy) 7.07 DLP: (mGycm) 392 Technique: Multiple axial sections of the abdomen and pelvis have been obtained. 64 slice high-resolution scanner used. 3 mm axial sections have been obtained, post intravenous injection 60 cc [id number] 2-D sagittal, coronal reconstructions obtained. Low dose protocols were performed. One or more of the following dose reduction techniques were used; automated exposure control, adjustment of the mA and/or KV according to patient size, use of iterative reconstruction technique. Findings: No focal liver or splenic lesions No gallstones No pancreatic or adrenal masses No renal or ureteral calculi, no hydronephrosis Soft tissue phlegmonous mass involving the right iliacus muscle in the pelvis Slightly more necrotic low-density center in the lower portion of this phlegmonous mass but not amenable at this time to catheter drainage Bilateral intact Mild prostatomegaly Impression: No major change in phlegmonous likely infectious mass involving the right iliacus muscle in the pelvis,
[2025-06-23 12:00] VITALS: BP 112/65; PULSE 70; RESP 18; TEMP 36.8; O2SAT 96
[2025-06-23 13:03] LABS: Partial Thromboplastin Time 30.8 Seconds (22.0-36.0)
--- NOTE | 2025-06-23 13:03 | PC.NURSE ---
efrem recommends ct abd/pelvis with contrast pior to procedure of ct drain abscess. per efrem will evalutate image; npo at midnight today. postponed procedure tomorrow. notified tito rn of recommendations.
[2025-06-23 13:59] LABS: Vancomycin,Trough 9.7 mcg/mL (5.0-10.0)
[2025-06-23] MEDS: VANCOMYCIN/WATER 1250 MG IVPB 250 ML 120 MG IV ×2 (14:56→21:00)
--- NOTE | 2025-06-23 15:58 | PC.SS ---
SS follow note; Patient will have abscess drainage, possible discharge within 1-2 days. Patient will discharge home.
[2025-06-23 16:00] VITALS: BP 110/70; PULSE 72; RESP 18; TEMP 36.7; O2SAT 99
[2025-06-23 20:00] VITALS: BP 113/73; PULSE 87; RESP 19; TEMP 36.8; O2SAT 97
[2025-06-24] VITALS (11 sets, daily range): BP systolic 102–117; BP diastolic 58–72; PULSE 65–85; RESP 12–20; TEMP 36.7–37.1; O2SAT 94–100
[2025-06-24 05:28] LABS: Basophils # (Auto) 0.1 Thou/mm3 (0.0-0.2); Basophils % (Auto) 0 % (0-2.5); Eosinophils # (Auto) 0.5 Thou/mm3 (0.0-0.5); Eosinophils % (Auto) 3 % (0-10); Hematocrit 43.1 % (41.0-53.0); Hemoglobin 14.5 g/dL (13.5-16.0); Immature Granulocytes Auto 0.06 Thou/mm3 (0.00-0.00); Lymphocytes # (Auto) 2.1 Thou/mm3 (1.0-4.8); Lymphocytes % (Auto) 15 % (10-50); Mean Corpuscular HGB Conc 33.6 g/dl (31.0-37.0); Mean Corpuscular Hemoglobin 31.7 pg (25.0-35.0); Mean Corpuscular Volume 94 fL (80-100); Monocytes # (Auto) 1.2 Thou/mm3 (0.0-0.8); Monocytes % (Auto) 9 % (0-12); Neutrophils # (Auto) 10.0 Thou/mm3 (1.8-7.7); Neutrophils % (Auto) 72 % (37-80); Nucleated Red Blood Cell # 0.00 Thou/mm3 (0.00-0.00); Nucleated Red Blood Cell % 0 /100 WBC (0); Platelet Count 286 Thou/mm3 (140-440); RDW Standard Deviation 42.1 fL (35.1-43.9); Red Blood Count 4.57 Miln/mm3 (4.50-5.90); White Blood Count 13.8 Thou/mm3 (3.8-10.6)
[2025-06-24 05:44] LABS: Alanine Aminotransferase 11 U/L (10-49); Albumin, Serum 4.0 gm/dL (3.5-5.0); Albumin/Globulin Ratio 1.3 (1.2-2.2); Alkaline Phosphatase 65 U/L (46-116); Anion Gap 10 (7-16); Aspartate Amino Transferase 16 U/L (0-34); BUN/Creatinine Ratio 11 Ratio (12-20); Bilirubin,Total 0.5 mg/dL (0.3-1.2); Blood Urea Nitrogen 11 mg/dL (9-23); Calcium 9.6 mg/dL (8.3-10.6); Calcium (Corrected) 9.6 mg/dL (8.5-10.1); Carbon Dioxide 26.8 mMol/L (20.0-31.0); Chloride 103 mMol/L (98-107); Creatinine (Component) 1.0 mg/dL (0.6-1.3); Estimated Creatinine Clearance 92.3 mL/min (>60); Globulin 3.1 gm/dL (2.3-3.5); Glucose 92 mg/dL (74-106); Magnesium 1.8 mg/dL (1.6-2.6); Osmolality,Calculated 278 (275-295); Potassium 3.9 mMol/L (3.4-5.1); Sodium 140 mMol/L (136-145); Total Protein 7.1 gm/dL (5.7-8.2); eGFR > 60 See Note
[2025-06-24] MEDS: PIPER/TAZO 3.375 GM PREMIX 3.375 GM/50 ML BAG IV ×3 (06:15→21:32)
--- NOTE | 2025-06-24 08:50 | ESPR_ITS ---
<Statement entered by Yeison Ledezma MD - 06/27/25 15:13> I reviewed above note and agree with findings and plans. I have also personally examined the patient with medicine team and went over assessment and plan with medical team including culinary intern and resident physician. <Statement entered by Kings Hinds MD - 06/24/25 17:05> Patient was examined and case was reviewed with team including attending physician. Note reviewed, I agree with most of its contents and agree with the patient's care as documented by MS Mert Benoit Patient seen today at the bedside found awake, alert, orientedx3. No overnight events reported. Vitals and labs reviewed. Patient currently still pending AFB results for TB rule out. Continue IV antibiotics as part of management of psoas abcess. Case discussed with my attending Dr. Brisa Hinds MD PGY-2 Disclaimer: Despite multiple revisions, due to the dictation software being used, the document bellow may not be free of grammatical errors including phonetic/typographic errors. However, this does not deter from our commitment to providing health care in the patient's best interest in mind. Documentation for date of: 06/24/25 Subjective Subjective Interval history: pt seen at bedside today and is alert and oriented x4. pt is notified of his upcoming procedure with interventional radiology to aspirate and drain his R psoas and illiacus abcess. He states that he understands and does not have any questions about his procedure. He is updated about the repeat sputum cultures for his AFB stain since the original samples were insufficient to which he verbalizes understanding. He states that he does not have any further questions or concerns at this time. Exam Vital Signs Temp Pulse Resp BP Pulse Ox O2 Del Method 98.6 F 65 18 116/72 97 Room Air 06/24/25 08:00 06/24/25 08:00 06/24/25 08:00 06/24/25 08:00 06/24/25 08:00 06/24/25 08:00 Narrative Exam General: Alert, oriented, in no acute distress HEENT: NCAT, EOMI, conjunctivae without injections, no icteric sclera Neck: Supple, no lymphadenopathy Lungs: Spontaneous breathing, no respiratory distress, no tachypnea, no wheezing Heart: RRR, no murmurs Abdomen: Soft,non-distended, no rigidity or perotinic signs Back/Flank: Tenderness to right flank, no visible mass, no CVA tenderness Neuro: AOx3, CN II-XII intact, no focal motor deficits Skin: Warm, dry Extremities: No edema or cyanosis Objective Labs 06/24/25 04:10 06/24/25 04:10 Labs: Laboratory Results - last 24 hr 06/21/25 06/23/25 06/23/25 16:17 04:20 13:20 WBC RBC Hgb Hct MCV MCH MCHC RDW Std Deviation Plt Count Neut % (Auto) Lymph % (Auto) [place] % (Auto) Eos % (Auto) Baso % (Auto) Neut # (Auto) Lymph # (Auto) [place] # (Auto) Eos # (Auto) Baso # (Auto) Immature Gran # (Auto) Absolute Nucleated RBC Immature Gran % Nucleated RBC % APTT 30.8 Sodium Potassium Chloride Carbon Dioxide Anion Gap BUN Creatinine Estim Creat Clear Calc eGFR BUN/Creatinine Ratio Glucose Calculated Osmolality Calcium Corrected Calcium Magnesium Total Bilirubin AST ALT Alkaline Phosphatase Total Protein Albumin Globulin Albumin/Globulin Ratio Vancomycin Trough 9.7 Mycobacterial Culture See Sep Rpt 06/24/25 04:10 WBC 13.8 H RBC 4.57 Hgb 14.5 Hct 43.1 MCV 94 MCH 31.7 MCHC 33.6 RDW Std Deviation 42.1 Plt Count 286 Neut % (Auto) 72 Lymph % (Auto) 15 [place] % (Auto) 9 Eos % (Auto) 3 Baso % (Auto) 0 Neut # (Auto) 10.0 H Lymph # (Auto) 2.1 [place] # (Auto) 1.2 H Eos # (Auto) 0.5 Baso # (Auto) 0.1 Immature Gran # (Auto) 0.06 H Absolute Nucleated RBC 0.00 Immature Gran % 0 Nucleated RBC % 0 APTT Sodium 140 Potassium 3.9 Chloride 103 Carbon Dioxide 26.8 Anion Gap 10 BUN 11 Creatinine 1.0 Estim Creat Clear Calc 92.3 eGFR > 60 BUN/Creatinine Ratio 11 L Glucose 92 Calculated Osmolality 278 Calcium 9.6 Corrected Calcium 9.6 Magnesium 1.8 Total Bilirubin 0.5 AST 16 ALT 11 Alkaline Phosphatase 65 Total Protein 7.1 Albumin 4.0 Globulin 3.1 Albumin/Globulin Ratio 1.3 Vancomycin Trough Mycobacterial Culture Quality Measures Quality Measures VTE prophylaxis Assessment & Plan Assessment Current Active Medications: Generic Name Dose Route Start Last Admin Trade Name Freq PRN Reason Stop Dose Admin Acetaminophen 650 mg 06/18/25 23:19 Acetaminophen 325 Mg Tablet PO 07/18/25 23:18 Q6H PRN PAIN SCALE 1-3 (mild Acetaminophen 650 mg 06/18/25 23:19 Acetaminophen 325 Mg Tablet PO 07/18/25 23:18 Q6H PRN Fever >100.4 Enoxaparin Sodium 40 mg 06/19/25 09:00 06/24/25 08:43 Enoxaparin Sod Inj 40 Mg/0.4 Ml Syringe SC 07/03/25 08:59 Not Given QDAY EDI Piperacillin/Tazobactam/Dextrose 3.375 gm in 50 mls @ 12.5 mls/hr 06/19/25 09:15 06/24/25 06:15 Zosyn IV 06/26/25 09:14 12.5 mls/hr Q8HR EDI Administration Protocol Vancomycin HCl 250 mls @ 120 mls/hr 06/23/25 22:00 06/23/25 21:00 Vancomycin/Water 1250 Mg Ivpb IV 06/30/25 21:59 120 mls/hr Q12H EDI Administration Protocol Magnesium Sulfate 4 gm in 50 mls @ 12.5 mls/hr 06/24/25 07:50 Magnesium Sulfate Ivpb IV 06/24/25 11:49 X1 ONE Ondansetron HCl 4 mg 06/18/25 23:19 Ondansetron Inj 2 Mg/Ml Inj 2 Ml IVP 07/18/25 23:18 Q6H PRN NAUSEA OR VOMITING Protocol Pharmacy Consult 1 each 06/19/25 09:00 Vancomycin Pharmacy To Dose 1 Each Each IV 07/19/25 08:59 QDAY PRN CONSULT Plan 44M with no PMHx presenting with 3 weeks of right flank pain. CT revealed a 6x10 cm right psoas + iliacus abscess. Stable vitals. No systemic toxicity. TB on differential given geography and imaging, though he has completed treatment in the past and had negative follow-ups. # Right psoas/iliacus abscess Large 6x10 cm abscess involving right psoas and iliacus on CT Likely infectious origin per most recent CT abd/Pelvis conducted on 06/23 Leukocytosis of 14.5 on admission -->13.1 --> 12.2 -->12.9 -> 13.2 -> 13.8 . Unremarkable CMP and UA. Consulted General Surgery Dr. Mckeon who recommended so surgical intervention at this time and continue with the current plan of IV Abx and IR percutaneous drainage IR to redo CT Abd/Pelvis w/ contrast to determine appropriate course of action. Aspiration and drainage planned for today. Was unable to complete procedure yesterday since pt was not NPO. CT abdomen pelvis reordered today: results show no major change in the size of the mass, with slightly more necrotic center noted on image. Blood culture negative for growth x2 at 48 hour ying Negative HIV STD panel resulted negative for chlamydia, trichamonas, and gonorrhea Plan: - Continue empiric antibiotics: Zosyn + Vancomycin (Start 06/18) - Trend daily CBC - Monitor for signs of systemic infection - Neuro check qday # Rule out Tuberculosis Completed TB treatment 17 years ago Multiple negative TB tests since TB still on differential given geography and imaging. CXR negative. Patient is currently asymptomatic. HIV negative. ID Dr. Irby was consulted who recommended oral doxyxycline 100BID [id number] and repeat imaging if want to treat empirically. If biopsy or drainage is to be performed, patient will be seen by ID on Monday. No need for ID follow up upon discharge but he has to follow up with a surgeon or PCP after discharge. Plan: - Pending Quantiferon-TB Gold - Pending culture x2. Repeat sputum samples were ordered since the initial set of cultures x2 was deemed insufficient for testing per [facility]. Initial culture resulted negative for Acid Fast Bacilli growth - Hold RIPE therapy for now, defer to ID Health Maintenance: Dispo: TB precautions DVT prophylaxis: Lovenox GI prophylaxis: Pantoprazole 40 mg IV daily Code status: Full code Diet: Regular diet Plan was reviewed by senior resident Dr. Rouse and attending physician Dr. Brisa Benoit (Med Student)
[2025-06-24 08:55] LABS: Phosphorous 4.1 mg/dL (2.4-5.1)
[2025-06-24] MEDS: VANCOMYCIN/WATER 1250 MG IVPB 250 ML 120 MG IV ×2 (10:02→22:13)
[2025-06-24] MEDS: Magnesium Sulfate 4 GM Ivpb 4 GM/50 ML BAG IV (10:02)
[2025-06-24 10:45] LABS: Cult AFB Sendout- Sputum* See Sep Rpt
--- NOTE | 2025-06-24 11:10 | PC.NURSE ---
Patient to IR for abscess drainage
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
--- NOTE | 2025-06-24 11:37 | PC.SS ---
SS follow up note; Patient is pending TB R/O. Patient will discharge back home when medically cleared.
[2025-06-24] MEDS: fentaNYL CIT INJ 50 mCg/ML AMP 2ML 100 MCG IVP (12:07)
[2025-06-24] MEDS: MIDAZOLAM INJ 1 MG/ML VIAL 2 ML IVP (12:07)
[2025-06-24] MEDS: LIDOCAINE INJ PF 1% 30 ML VIAL 14 ML INFL (12:09)
--- NOTE | 2025-06-24 12:30 | PC.NURSE ---
Pt back from drain, dressing to right lateral abdomen CDI. Bandaid and tegaderm
--- NOTE | 2025-06-24 12:49 | PC.NURSE ---
patient brought down for ct guide abscess drainage/aspiration. patient tolerate procedure well. vital signs stable. tegaderm and gauze applied to site. site is soft, flat, non tender, and no hematoma present. specimen taken to lab for cultures. dressing is clean dry and intact. hand off report given to sharita martell via telephone. peter martell transfered patient back to room via [facility].
[2025-06-24 13:33] LABS: Cult AFB Sendout- Not Sputum* See Sep Rpt
[2025-06-24 22:07] LABS: Vancomycin,Trough 12.3 mcg/mL (5.0-10.0)
--- NOTE | 2025-06-24 23:14 | PC.RT ---
Attempted to obtain AFB culture with induction. Pt is refusing to do induction at this time, states he is not producing sputum even with induction and wants to attempt in the morning. Sputum collection cup left at bedside and RN notified.
[2025-06-25] VITALS: BP 113/66; PULSE 66; RESP 18; TEMP 36.4; O2SAT 97
[2025-06-25 04:00] VITALS: BP 103/61; PULSE 65; RESP 16; TEMP 36.4; O2SAT 99
[2025-06-25] MEDS: PIPER/TAZO 3.375 GM PREMIX 3.375 GM/50 ML BAG IV ×3 (06:02→21:09)
--- NOTE | 2025-06-25 07:22 | ESPR_ITS ---
<Statement entered by Yeison Ledezma MD - 06/27/25 15:14> I reviewed above note and agree with findings and plans. I have also personally examined the patient with medicine team and went over assessment and plan with medical team including chemistry intern and resident physician. <Statement entered by Kings Hinds MD - 06/26/25 15:01> Patient was examined and case was reviewed with team including attending physician. Note reviewed, I agree with most of its contents and agree with the patient's care as documented by MS Mert Benoit Patient seen today at the bedside found awake, alert, orientedx3. No overnight events reported. Vitals and labs reviewed. Patient still pending final AFB sample for TB rule out. Once results, will likely discharge in the next 24-48 hours. Case discussed with my attending Dr. Brsia Hinds MD PGY-2 Disclaimer: Despite multiple revisions, due to the dictation software being used, the document bellow may not be free of grammatical errors including phonetic/typographic errors. However, this does not deter from our commitment to providing health care in the patient's best interest in mind. Documentation for date of: 06/25/25 Subjective Subjective Interval history: pt is seen at bedside and is alert and oriented x4. pt is notified that his AFB culture results are still pending. Pt states that his procedure yesterday went well and he has not noted any bleeding or discharge coming from his procedure site. He denies having any feelings of pain, abnormal pressure, or swelling near the procedure site. Pt is notified that his second sputum culture has resulted negative for AFB growth and that there is one sputum culture still pending for definitive TB rule out to which he verbalizes understanding. He has no further questions or concerns at this time. Exam Vital Signs Temp Pulse Resp BP Pulse Ox O2 Del Method O2 Flow Rate 97.5 F 65 16 103/61 99 Room Air 3 06/25/25 04:00 06/25/25 04:00 06/25/25 04:00 06/25/25 04:00 06/25/25 04:00 06/25/25 04:00 06/24/25 12:18 Narrative Exam General: Alert, oriented, in no acute distress HEENT: NCAT, EOMI, conjunctivae without injections, no icteric sclera Neck: Supple, no lymphadenopathy Lungs: Spontaneous breathing, no respiratory distress, no tachypnea, no wheezing Heart: RRR, no murmurs Abdomen: Soft,non-distended, no rigidity or perotinic signs Back/Flank: Tenderness to right flank, no visible mass, no CVA tenderness Neuro: AOx3, CN II-XII intact, no focal motor deficits Skin: Warm, dry Extremities: No edema or cyanosis Objective Labs 06/25/25 08:43 06/25/25 08:43 Labs: Laboratory Results - last 24 hr 06/20/25 06/24/25 06/24/25 22:00 04:10 20:56 Phosphorus 4.1 Vancomycin Trough 12.3 H Mycobacterial Culture See Sep Rpt Quality Measures Quality Measures VTE prophylaxis Assessment & Plan Assessment Current Active Medications: Generic Name Dose Route Start Last Admin Trade Name Freq PRN Reason Stop Dose Admin Acetaminophen 650 mg 06/18/25 23:19 Acetaminophen 325 Mg Tablet PO 07/18/25 23:18 Q6H PRN PAIN SCALE 1-3 (mild Acetaminophen 650 mg 06/18/25 23:19 Acetaminophen 325 Mg Tablet PO 07/18/25 23:18 Q6H PRN Fever >100.4 Enoxaparin Sodium 40 mg 06/19/25 09:00 06/24/25 08:43 Enoxaparin Sod Inj 40 Mg/0.4 Ml Syringe SC 07/03/25 08:59 Not Given QDAY EDI Piperacillin/Tazobactam/Dextrose 3.375 gm in 50 mls @ 12.5 mls/hr 06/19/25 09:15 06/25/25 06:02 Zosyn IV 06/26/25 09:14 12.5 mls/hr Q8HR EDI Administration Protocol Vancomycin HCl 250 mls @ 120 mls/hr 06/23/25 22:00 06/24/25 22:13 Vancomycin/Water 1250 Mg Ivpb IV 06/30/25 21:59 120 mls/hr Q12H EDI Administration Protocol Ondansetron HCl 4 mg 06/18/25 23:19 Ondansetron Inj 2 Mg/Ml Inj 2 Ml IVP 07/18/25 23:18 Q6H PRN NAUSEA OR VOMITING Protocol Pharmacy Consult 1 each 06/19/25 09:00 Vancomycin Pharmacy To Dose 1 Each Each IV 07/19/25 08:59 QDAY PRN CONSULT Plan 44M with no PMHx presenting with 3 weeks of right flank pain. CT revealed a 6x10 cm right psoas + iliacus abscess. Stable vitals. No systemic toxicity. TB on differential given geography and imaging, though he has completed treatment in the past and had negative follow-ups. # Right psoas/iliacus abscess Large 6x10 cm abscess involving right psoas and iliacus on CT Likely infectious origin per most recent CT abd/Pelvis conducted on 06/23 Leukocytosis of 14.5 on admission -->13.1 --> 12.2 -->12.9 -> 13.2 -> 13.8 -> 11.[address] Mckeon who recommended so surgical intervention at this time and continue with the current plan of IV Abx and IR percutaneous drainage IR completed CT guided abscess drainage on 06/24. CT abdomen pelvis repeat shows no major change in the size of the mass, with slightly more necrotic center noted on image. Blood culture negative for growth x2 at 48 hour ying Negative HIV STD panel resulted negative for chlamydia, trichamonas, and gonorrhea Plan: - Continue empiric antibiotics: Zosyn + Vancomycin (Start 06/18) - Trend daily CBC - pending CT guided abscess cultures - Monitor for signs of systemic infection - Neuro check qday # Rule out Tuberculosis Completed TB treatment 17 years ago Multiple negative TB tests since TB still on differential given geography and imaging. CXR negative. Patient is currently asymptomatic. HIV negative. ID Dr. Irby was consulted who recommended oral doxyxycline 100BID [id number] and repeat imaging if want to treat empirically. No need for ID follow up upon discharge but he has to follow up with a surgeon or PCP after discharge. Plan: - Pending Quantiferon-TB Gold - Pending culture x1. Repeat sputum samples were ordered since the initial set of cultures x2 was deemed insufficient for testing per [facility]. Initial culture and 2nd culture resulted negative for Acid Fast Bacilli growth. Once final culture results negative, pt is cleared for discharge from an Infectious Disease standpoint. - Hold RIPE therapy for now, defer to ID Health Maintenance: Dispo: TB precautions DVT prophylaxis: Lovenox GI prophylaxis: Pantoprazole 40 mg IV daily Code status: Full code Diet: Regular diet Plan was reviewed by senior resident Dr. Ernie Hinds and attending physician Dr. Brisa Benoit (Med Student)
[2025-06-25 08:00] VITALS: BP 116/83; PULSE 67; RESP 17; TEMP 36.7; O2SAT 100
[2025-06-25 08:55] LABS: Basophils # (Auto) 0.1 Thou/mm3 (0.0-0.2); Basophils % (Auto) 1 % (0-2.5); Eosinophils # (Auto) 0.3 Thou/mm3 (0.0-0.5); Eosinophils % (Auto) 3 % (0-10); Hematocrit 44.8 % (41.0-53.0); Hemoglobin 15.1 g/dL (13.5-16.0); Immature Granulocytes Auto 0.06 Thou/mm3 (0.00-0.00); Lymphocytes # (Auto) 1.7 Thou/mm3 (1.0-4.8); Lymphocytes % (Auto) 14 % (10-50); Mean Corpuscular HGB Conc 33.7 g/dl (31.0-37.0); Mean Corpuscular Hemoglobin 32.2 pg (25.0-35.0); Mean Corpuscular Volume 96 fL (80-100); Monocytes # (Auto) 1.0 Thou/mm3 (0.0-0.8); Monocytes % (Auto) 8 % (0-12); Neutrophils # (Auto) 8.7 Thou/mm3 (1.8-7.7); Neutrophils % (Auto) 74 % (37-80); Nucleated Red Blood Cell # 0.00 Thou/mm3 (0.00-0.00); Nucleated Red Blood Cell % 0 /100 WBC (0); Platelet Count 321 Thou/mm3 (140-440); RDW Standard Deviation 42.9 fL (35.1-43.9); Red Blood Count 4.69 Miln/mm3 (4.50-5.90); White Blood Count 11.9 Thou/mm3 (3.8-10.6)
[2025-06-25 09:15] LABS: Alanine Aminotransferase 10 U/L (10-49); Albumin, Serum 4.0 gm/dL (3.5-5.0); Albumin/Globulin Ratio 1.2 (1.2-2.2); Alkaline Phosphatase 56 U/L (46-116); Anion Gap 5 (7-16); Aspartate Amino Transferase 15 U/L (0-34); BUN/Creatinine Ratio 12 Ratio (12-20); Bilirubin,Total 0.6 mg/dL (0.3-1.2); Blood Urea Nitrogen 12 mg/dL (9-23); Calcium 9.7 mg/dL (8.3-10.6); Calcium (Corrected) 9.7 mg/dL (8.5-10.1); Carbon Dioxide 31.7 mMol/L (20.0-31.0); Chloride 102 mMol/L (98-107); Creatinine (Component) 1.0 mg/dL (0.6-1.3); Estimated Creatinine Clearance 92.3 mL/min (>60); Globulin 3.4 gm/dL (2.3-3.5); Glucose 86 mg/dL (74-106); Magnesium 2.2 mg/dL (1.6-2.6); Osmolality,Calculated 276 (275-295); Phosphorous 3.5 mg/dL (2.4-5.1); Potassium 4.3 mMol/L (3.4-5.1); Sodium 139 mMol/L (136-145); Total Protein 7.4 gm/dL (5.7-8.2); eGFR > 60 See Note
[2025-06-25] MEDS: ENOXAPARIN SOD INJ 40 MG/0.4 ML SYRINGE SC (09:16)
--- NOTE | 2025-06-25 09:50 | ESPR_ITS ---
Subjective Subjective Interval history: abscess drainage noted. cx and gram stain neg so far no suggestion of contagious tb noted. repeat qtf pending Exam Vital Signs Temp Pulse Resp BP Pulse Ox O2 Del Method O2 Flow Rate 98.1 F 67 17 116/83 100 Room Air 3 06/25/25 08:00 06/25/25 08:00 06/25/25 08:00 06/25/25 08:00 06/25/25 08:00 06/25/25 08:00 06/24/25 12:18 Narrative Exam limited visit. prior abx may have affected cx and stain. was on vanco alone for a while and afebrile. bc neg Objective - Internal Medicine Labs 06/25/25 08:43 06/25/25 08:43 Labs: Laboratory Results - last 24 hr 06/20/25 06/24/25 06/24/25 22:00 12:15 20:56 WBC RBC Hgb Hct MCV MCH MCHC RDW Std Deviation Plt Count Neut % (Auto) Lymph % (Auto) [place] % (Auto) Eos % (Auto) Baso % (Auto) Neut # (Auto) Lymph # (Auto) [place] # (Auto) Eos # (Auto) Baso # (Auto) Immature Gran # (Auto) Absolute Nucleated RBC Immature Gran % Nucleated RBC % Sodium Potassium Chloride Carbon Dioxide Anion Gap BUN Creatinine Estim Creat Clear Calc eGFR BUN/Creatinine Ratio Glucose Calculated Osmolality Calcium Corrected Calcium Phosphorus Magnesium Total Bilirubin AST ALT Alkaline Phosphatase Total Protein Albumin Globulin Albumin/Globulin Ratio Vancomycin Trough 12.3 H Mycobacterial Culture See Sep Rpt Cancelled 06/25/25 08:43 WBC 11.9 H RBC 4.69 Hgb 15.1 Hct 44.8 MCV 96 MCH 32.2 MCHC 33.7 RDW Std Deviation 42.9 Plt Count 321 D Neut % (Auto) 74 Lymph % (Auto) 14 [place] % (Auto) 8 Eos % (Auto) 3 Baso % (Auto) 1 Neut # (Auto) 8.7 H Lymph # (Auto) 1.7 [place] # (Auto) 1.0 H Eos # (Auto) 0.3 Baso # (Auto) 0.1 Immature Gran # (Auto) 0.06 H Absolute Nucleated RBC 0.00 Immature Gran % 1 H Nucleated RBC % 0 Sodium 139 Potassium 4.3 Chloride 102 Carbon Dioxide 31.7 H Anion Gap 5 L BUN 12 Creatinine 1.0 Estim Creat Clear Calc 92.3 eGFR > 60 BUN/Creatinine Ratio 12 Glucose 86 Calculated Osmolality 276 Calcium 9.7 Corrected Calcium 9.7 Phosphorus 3.5 Magnesium 2.2 Total Bilirubin 0.6 AST 15 ALT 10 Alkaline Phosphatase 56 Total Protein 7.4 Albumin 4.0 Globulin 3.4 Albumin/Globulin Ratio 1.2 Vancomycin Trough Mycobacterial Culture Assessment & Plan A&P Narrative ileopsoas process , cx neg and afebrile . aspirated the other day and not transferred po doxy 100 bd for a month ok for now no need for outpt ID f/u if released. will see again prn fu with outpt primary, nothing for me to do please check cbc, renal panel, esr during rx x 1 if afb pos then send to health dept for rx as they manage tb cases Time Spent With Patient Time: Total time spent is greater than 50% in coordination of care (as documented) at patient's floor/unit and/or counseling patient:
[2025-06-25 12:00] VITALS: BP 121/79; PULSE 69; RESP 18; TEMP 36.5; O2SAT 99
[2025-06-25 16:00] VITALS: BP 127/62; PULSE 80; RESP 18; TEMP 36.1; O2SAT 99
[2025-06-25 16:03] VITALS: BMI 28.7
[2025-06-25 20:00] VITALS: BP 118/65; PULSE 70; RESP 18; TEMP 36.6; O2SAT 97
[2025-06-26] VITALS: BP 107/65; PULSE 66; RESP 16; TEMP 37.1; O2SAT 98
[2025-06-26 04:00] VITALS: BP 100/60; PULSE 60; RESP 18; TEMP 36.7; O2SAT 98
[2025-06-26] MEDS: PIPER/TAZO 3.375 GM PREMIX 3.375 GM/50 ML BAG IV (05:38)
[2025-06-26 06:40] LABS: Basophils # (Auto) 0.0 Thou/mm3 (0.0-0.2); Basophils % (Auto) 0 % (0-2.5); Eosinophils # (Auto) 0.3 Thou/mm3 (0.0-0.5); Eosinophils % (Auto) 3 % (0-10); Hematocrit 43.6 % (41.0-53.0); Hemoglobin 14.4 g/dL (13.5-16.0); Immature Granulocytes Auto 0.06 Thou/mm3 (0.00-0.00); Lymphocytes # (Auto) 2.0 Thou/mm3 (1.0-4.8); Lymphocytes % (Auto) 17 % (10-50); Mean Corpuscular HGB Conc 33.0 g/dl (31.0-37.0); Mean Corpuscular Hemoglobin 31.4 pg (25.0-35.0); Mean Corpuscular Volume 95 fL (80-100); Monocytes # (Auto) 1.1 Thou/mm3 (0.0-0.8); Monocytes % (Auto) 9 % (0-12); Neutrophils # (Auto) 8.2 Thou/mm3 (1.8-7.7); Neutrophils % (Auto) 70 % (37-80); Nucleated Red Blood Cell # 0.00 Thou/mm3 (0.00-0.00); Nucleated Red Blood Cell % 0 /100 WBC (0); Platelet Count 327 Thou/mm3 (140-440); RDW Standard Deviation 42.6 fL (35.1-43.9); Red Blood Count 4.58 Miln/mm3 (4.50-5.90); White Blood Count 11.6 Thou/mm3 (3.8-10.6)
[2025-06-26 06:57] LABS: Alanine Aminotransferase 11 U/L (10-49); Albumin, Serum 3.9 gm/dL (3.5-5.0); Albumin/Globulin Ratio 1.3 (1.2-2.2); Alkaline Phosphatase 61 U/L (46-116); Anion Gap 9 (7-16); Aspartate Amino Transferase 15 U/L (0-34); BUN/Creatinine Ratio 13 Ratio (12-20); Bilirubin,Total 0.4 mg/dL (0.3-1.2); Blood Urea Nitrogen 12 mg/dL (9-23); Calcium 9.5 mg/dL (8.3-10.6); Calcium (Corrected) 9.6 mg/dL (8.5-10.1); Carbon Dioxide 28.7 mMol/L (20.0-31.0); Chloride 104 mMol/L (98-107); Creatinine (Component) 0.9 mg/dL (0.6-1.3); Estimated Creatinine Clearance 102.5 mL/min (>60); Globulin 3.1 gm/dL (2.3-3.5); Glucose 89 mg/dL (74-106); Magnesium 2.0 mg/dL (1.6-2.6); Osmolality,Calculated 281 (275-295); Phosphorous 2.8 mg/dL (2.4-5.1); Potassium 3.9 mMol/L (3.4-5.1); Sodium 142 mMol/L (136-145); Total Protein 7.0 gm/dL (5.7-8.2); eGFR > 60 See Note
[2025-06-26 08:00] VITALS: BP 112/66; PULSE 61; RESP 20; TEMP 36.2; O2SAT 98
[2025-06-26] MEDS: ENOXAPARIN SOD INJ 40 MG/0.4 ML SYRINGE SC (08:34)
[2025-06-26 10:15] LABS: Cult AFB Sendout- Sputum* See Sep Rpt
[2025-06-26 12:00] VITALS: BP 124/60; PULSE 81; RESP 18; TEMP 36.1; O2SAT 98
--- NOTE | 2025-06-26 13:35 | ESDS_ITS ---
<Statement entered by Kings Hinds MD - 06/26/25 14:24> Patient was examined and case was reviewed with team including attending physician. Note reviewed, I agree with most of its contents and agree with the patient's care as documented by MS Mert Edgarumar Case discussed with my attending Dr. Brisa Hinds MD PGY-2 Disclaimer: Despite multiple revisions, due to the dictation software being used, the document bellow may not be free of grammatical errors including phonetic/typographic errors. However, this does not deter from our commitment to providing health care in the patient's best interest in mind. Planned Discharge Date 06/26/25 DS: Providers Provider Date of admission: 06/18/25 23:18 Primary care physician: Kolton Hinds MD Admitting Provider: Jasvir Bo MD Attending Provider on Admission: Yeison Ledezma MD Consults: 06/18/25 23:14 Consult to Infectious Diseases Stat Comment: Consulting Provider: Toy Irby 06/19/25 08:15 Consult to General Surgery Stat Comment: Psoas/Iliacus abscess Consulting Provider: Laine Mckeon Attending Provider on DC: Yeison Ledezma MD Discharging Provider: [facility]ert Benoit[facility] MD DS: Diagnosis Problem List Completed Was Problem List Reviewed/Reconciled?: Yes Hospital Course Hospital Course Hospital course: pt is a 44M with no PMHx who presented to the ED with 3 weeks of right flank pain. CT Abdomen/Pelvis revealed a 6x10 cm right psoas + iliacus abscess. TB on differential given geography and imaging, though he has completed treatment in the past and had negative follow-ups. Pt was admitted for management of R Psoas + Iliacus abscess and for TB rule out. General Surgery Dr. Mckeon was consulted who recommended so surgical intervention at this time and continuation of IV Abx and IR percutaneous drainage. Orthopedic Surgery Dr. Murrell was also consulted given the concern for the location of the abscess and close proximity to the spine, who agreed with the current plan and recommended assessing for any neurological deficits which would warrant neurological surgery/ortho consult in the future. IR Dr. Mora was consulted who recommended continuation of IV antibiotic regimen and repeat CTAP in 5-6 days after the day of the consult to reasses the abscess. IR reassesed the patient on day 6 of hospitalization at which point they decided to proceed with CT guided drainage of the abscess. The abscess was aspirated and was sent for bacterial and fungal culture. Bacterial culture resulted negative for growth while fungal culture was still pending at time fo discharge. Per Infectious Diseases recommendations, patient safe for discharge with prescription for Doxycycline 100mg BID for 30 days. Pt provided 3 sputum samples for Tuberculosis rule out which all resulted negative for Acid Fast Bacilli growth per [facility]. Pt's Quantiferon Gold test also resulted negative for active TB infection. Pt is medically stable at time of discharge. # Right psoas/iliacus abscess # Rule out Tuberculosis Follow up with primary care physician within 1 week of discharge You have been prescribed doxycycline please take this medication for 1 month as recommended by the Infectious Disease specialist Should any symptoms recur or worsen patient is instructed to return to the ED. Sequimiento con el medico de atencion primaria dentro de marycruz semana Le العلي recetado doxicilina tome yumiko medicamento brandy un mes ishmael lo recomendado por el especialista en enfermedades infecciosas Si algun sintoma reaparece o empeora se le indica al paiente que regrese al departamento de emergencias Status at Discharge Functional status at discharge: independent ambulation Overall status at discharge: patient is back to baseline Time Spent with Patient Time attestation: Total time spent providing and/or coordinating discharge services: Time spent: Greater than 30 minutes Exam Vital Signs Temp Pulse Resp BP Pulse Ox O2 Del Method O2 Flow Rate 97.2 F 61 20 112/66 98 Room Air 3 06/26/25 08:00 06/26/25 08:00 06/26/25 08:00 06/26/25 08:00 06/26/25 08:00 06/26/25 00:00 06/24/25 12:18 Narrative Exam General: Alert, oriented, in no acute distress HEENT: NCAT, EOMI, conjunctivae without injections, no icteric sclera Neck: Supple, no lymphadenopathy Lungs: Spontaneous breathing, no respiratory distress, no tachypnea, no wheezing Heart: RRR, no murmurs Abdomen: Soft,non-distended, no rigidity or perotinic signs Back/Flank: Tenderness to right flank, no visible mass, no CVA tenderness Neuro: AOx3, CN II-XII intact, no focal motor deficits Skin: Warm, dry Extremities: No edema or cyanosis Discharge Plan Plan Patient Disposition: HOME (Self Care) Patient condition on transfer: Stable Care Plan Goals: Follow up with primary care physician within 1 week of discharge You have been prescribed doxycycline please take this medication for 1 month as recommended by the Infectious Disease specialist Should any symptoms recur or worsen patient is instructed to return to the ED. Sequimiento con el medico de atencion primaria dentro de marycruz semana Le العلي recetado doxicilina tome yumiko medicamento brandy un mes ishmael lo recomendado por el especialista en enfermedades infecciosas Si algun sintoma reaparece o empeora se le indica al paiente que regrese al departamento de emergencias Prescriptions/Referrals Prescriptions/Med Rec: New doxycycline hyclate 100 mg capsule 100 mg PO BID 30 Days Qty: 60 0RF Referrals: Kolton Hinds MD [Primary Care Provider, Family Practice] Patient/Caregiver Discharge Instructions Education Materials: ED Abscess Antibiotic ... Print Language: Ivorian Stand Alone Forms: Marisol Award Info., Patient Portal Info Letter Discharge Order Discharge Orders: Discharge (Routine); Ordered 06/26/25 Ordered By: Kings Hinds Quality Discharge Quality Measures none MD Attestestation MD Attestation I reviewed above note and agree with findings and plans. I have also personally examined the patient with medicine team and went over assessment and plan with medical team including nurse intern and resident physician.
== END 2025-06-26 13:54 | disposition home or self-care (01) | DRG 951 ==
LOC: SERX 22:14 → SERHOLD 23:29 → S3NX 06-19 01:53
PROVIDERS: Nurse Practitioner Primary Care; Radiology Diagnostic Radiology; Admitting Provider Student in an Organized Health Care Education/Training Program; Emergency Provider Emergency Medicine; PCP Family Medicine; Visit Provider Internal Medicine
DX: K68.12 Psoas muscle abscess (principal); L02.214 Cutaneous abscess of groin
CPT/HCPCS: 36415; 71045; 74177; 75989; 80048; 80053; 80074; 80202; 81001; 83690; 83735; 84100; 85025; 85610; 85652; 85730; 86140; 86480; 86703; 86780; 86850; 86900; 86901; 87015; 87040; 87070; 87075; 87081; 87102; 87116; 87205; 87206; 87400; 87491; 87591; 87661; 87811; 89220; 94664; 96365; 99283; A4649; C1729; J1650; J2250; J2543; J3010; J3370; J3372; J3373; J3375; J3475; J3490; J7030; Q9967; 94640

== ENCOUNTER 2025-08-09 14:47 | Emergency (ER) | payer MEDICAID, SELFPAY ==
[2025-08-09 15:27] VITALS: BP 112/74; PULSE 82; RESP 16; TEMP 37.6; O2SAT 98
--- NOTE | 2025-08-09 15:40 | PD.EDRME ---
Rapid Medical Screening Exam RME Arrival date/time: 08/09/25 14:47 Chief Complaint: Skin/Abscess/Foreign Body Time Seen by Provider: 08/09/25 15:01 Vital signs: Vital Signs Temperature 99.6 F 08/09/25 15:27 Pulse Rate 82 08/09/25 15:27 Respiratory Rate 16 08/09/25 15:27 Blood Pressure 112/74 08/09/25 15:27 Pulse Oximetry (%) 98 08/09/25 15:27 Oxygen Delivery Method Room Air 08/09/25 15:27 Vital signs reviewed by provider: Yes RME Narrative: Patient has been on Bactrim and doxycycline for 3 days without improvement of cellulitis near his R hip
--- NOTE | 2025-08-09 15:44 | XR_ITS ---
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 64 slice high-resolution scanner used. 3 mm axial sections have been obtained, post intravenous injection 60 cc [id number] 2-D sagittal, coronal reconstructions obtained. Low dose protocols were performed. One or more of the following dose reduction techniques were used; automated exposure control, adjustment of the mA and/or KV according to patient size, use of iterative reconstruction technique. Findings: No focal liver or splenic lesions No gallstones No pancreatic or adrenal mass No renal or ureteral calculi, no hydronephrosis Absent appendix Decrease in size of mass involving the right iliacus muscle No fluid-filled abdominal or pelvic abscess Mild prostatomegaly Bladder intact IMPRESSION: Decrease in size of infectious mass involving the iliacus muscle on the right
[2025-08-09 16:13] LABS: Basophils # (Auto) 0.1 Thou/mm3 (0.0-0.2); Basophils % (Auto) 0 % (0-2.5); Eosinophils # (Auto) 0.2 Thou/mm3 (0.0-0.5); Eosinophils % (Auto) 2 % (0-10); Hematocrit 44.2 % (41.0-53.0); Hemoglobin 14.9 g/dL (13.5-16.0); Immature Granulocytes Auto 0.03 Thou/mm3 (0.00-0.00); Lymphocytes # (Auto) 1.7 Thou/mm3 (1.0-4.8); Lymphocytes % (Auto) 14 % (10-50); Mean Corpuscular HGB Conc 33.7 g/dl (31.0-37.0); Mean Corpuscular Hemoglobin 31.2 pg (25.0-35.0); Mean Corpuscular Volume 93 fL (80-100); Monocytes # (Auto) 1.4 Thou/mm3 (0.0-0.8); Monocytes % (Auto) 11 % (0-12); Neutrophils # (Auto) 9.0 Thou/mm3 (1.8-7.7); Neutrophils % (Auto) 73 % (37-80); Nucleated Red Blood Cell # 0.00 Thou/mm3 (0.00-0.00); Nucleated Red Blood Cell % 0 /100 WBC (0); Platelet Count 297 Thou/mm3 (140-440); RDW Standard Deviation 41.9 fL (35.1-43.9); Red Blood Count 4.77 Miln/mm3 (4.50-5.90); White Blood Count 12.3 Thou/mm3 (3.8-10.6)
[2025-08-09 16:36] LABS: Alanine Aminotransferase 16 U/L (10-49); Albumin, Serum 4.4 gm/dL (3.5-5.0); Albumin/Globulin Ratio 1.1 (1.2-2.2); Alkaline Phosphatase 81 U/L (46-116); Anion Gap 8 (7-16); Aspartate Amino Transferase 27 U/L (0-34); BUN/Creatinine Ratio 11 Ratio (12-20); Bilirubin,Total 0.3 mg/dL (0.3-1.2); Blood Urea Nitrogen 15 mg/dL (9-23); Calcium 9.4 mg/dL (8.3-10.6); Calcium (Corrected) 9.4 mg/dL (8.5-10.1); Carbon Dioxide 29.3 mMol/L (20.0-31.0); Chloride 100 mMol/L (98-107); Creatinine (Component) 1.4 mg/dL (0.6-1.3); Globulin 3.9 gm/dL (2.3-3.5); Glucose 95 mg/dL (74-106); Osmolality,Calculated 274 (275-295); Potassium 4.2 mMol/L (3.4-5.1); Sodium 137 mMol/L (136-145); Total Protein 8.3 gm/dL (5.7-8.2); eGFR > 60 See Note
--- NOTE | 2025-08-09 20:17 | PD.EDSKIN ---
ED Skin Abcess FB-RME/HPI General Chief complaint: Skin/Abscess/Foreign Body Stated complaint: Rash right flank Time Seen by Provider: 08/09/25 15:01 Arrival date/time: 08/09/25 14:47 RME / HPI RME / HPI narrative: Patient has been on Bactrim and doxycycline for 3 days without improvement of cellulitis near his R hip DR. DIEZ MAIN ED EVALUATION: Patient with Hx of right psoas abscess diagnosed on 06/18/2025, hospitalized for 1 week, s/p 2 courses of Doxycycline currently on day 3 of recently prescribed Bactrim for progressively painful swelling at the RLQ region correlating with his belt line. No fever, chills, or vomiting although does report nausea, although no lightheadedness, dizziness, or fatigue. Notes area of redness has become quite firm over last several days. PMH: None PSH: Appendectomy Allergies: None Social: Negative Related Data Previous Rx's ?Medication ?Instructions ?Recorded clindamycin HCl 300 mg capsule 300 mg PO TID #30 caps 08/09/25 (Cleocin HCl) naproxen 250 mg tablet 250 mg PO BID PRN pain #10 tabs 08/09/25 Allergies Allergy/AdvReac Type Severity Reaction Status Date / Time No Known Allergies Allergy Verified 08/09/25 14:51 Review of Systems Review of Systems Systems Reviewed: All systems reviewed, normal except as documented Past Medical History Surgical History SURGICAL: Positive Abdominal Surgery ED Exam Narrative Physical exam: GEN. APPEARANCE: The patient is alert awake oriented X-3 in no distress, lying down comfortably, does not look ill/toxic. Patient has good eye contact. Patient is cooperative. C/O RLQ abdominal pain. VITALS: All vitals were reviewed and the pulse ox is 97% on room air which is normal according to my interpretation. HEENT: Normocephalic, atraumatic. Pupils are equal and reactive. Oral mucosa is moist. Patent Nares NECK: Supple, nontender, no thyromegaly, no meningismus, no JVD, no step offs CHEST: Symmetrical, atraumatic, and with equal expansion , Nontender on palpation no deformity and no crepitus. CARDIOVASCULAR: Heart regular rhythm no murmur or gallop rub or extra beats. LUNGS: Clear to auscultation bilaterally with symmetrical chest rise. No laboring tachypnea or wheezing. No intercostal subcostal retraction. No rales and no rhonchi. ABDOMEN: Soft, flat, nontender to palpation, no guarding or rebound tenderness. Noted 12 cm x 5 cm patch of erythema which is slight warm and indurated just above right iliac crest, no fluctuance noted. Active and normal bowel sounds. EXTREMITIES: Nontender. No edema. No cyanosis. Patient is able to move all 4 extremities well, with full ROM and good CSM. SKIN: Warm and dry, no jaundice or rashes noted. MUSCULOSKELETAL: No lubar or midline bony tenderness. There is no CVA tenderness. No paraspinal muscle spasm or tenderness. NEURO: Patient is HA x 4, Cranial nerves II through XII grossly intact. There is no focal neurologic deficits noted. GCS is 15, PNS and [facility] OF [facility] HEALTH appear grossly intact. PSYCHIATRIC: Patient is in normal mood and affect, cooperative, no SI or HI or hallucinations. Course Quality Measures none Orders Category Date Time Status CT Screening NOW Care 08/09/25 15:[address] abdomen pelvis w con Stat Exams 08/09/25 15:44 Completed CBC Stat Lab 08/09/25 16:03 Completed CMP [Comprehensive Metabolic Panel] Stat Lab 08/09/25 16:03 Completed Clindamycin 900Mg Ivpb [Cleocin/D5w Ivpb] 900 mg Med 08/09/25 20:19 Discontinued Pre-Mixed [Pre-mixed Bag] 1 bag IV X1 Ketorolac Inj [Toradol Inj] Med 08/09/25 20:19 Discontinued 30 mg IVP X1 ONE Morphine* Inj Med 08/09/25 20:21 Discontinued 4 mg IVP X1 ONE Prochlorperazine Inj [Compazine Inj] Med 08/09/25 20:19 Discontinued 5 mg IV X1 ONE Sodium Chloride 0.9% 1000 ml [Ns] 1,000 ml Med 08/09/25 20:19 Discontinued IV 999 mls/hr cefTRIAXone/D5w 1gm IV premix [Rocephin/D5w 1gm IV Med 08/09/25 20:19 Discontinued premix] 1 gm in 50 ml IV X1 Vital Signs Vital signs: Vital Signs Temperature 99.6 F 08/09/25 15:27 Pulse Rate 82 08/09/25 15:27 Respiratory Rate 16 08/09/25 15:27 Blood Pressure 112/74 08/09/25 15:27 Pulse Oximetry (%) 98 08/09/25 15:27 Oxygen Delivery Method Room Air 08/09/25 15:27 Skin / Abscess / Foreign Body MDM Narrative MDM Narrative:: Scribe Attestation: I, Mandy Scott, am scribing for and in the presence of Dr. Diez. Provider Notation: Although this document has been carefully reviewed, there may still be some phonetic and other typographical errors. These errors are purely grammatical due to imperfections in the software program and should not be construed in any way to compromise the substance of the patient's medical care during this visit. Patient with Hx of right psoas abscess diagnosed on 06/18/2025, hospitalized for 1 week, s/p 2 courses of Doxycycline currently on day 3 of recently prescribed Bactrim for progressively painful swelling at the RLQ region correlating with his belt line. No fever, chills, or vomiting although does report nausea, although no lightheadedness, dizziness, or fatigue. Please see PE findings. Laboratory markers, including CBC and serum chemistries, demonstrate marginally elevated WBC of 12.3, no anemia or thrombocytopenia. No left shift or bandemia. Serum chemistries essentially unremarkable. Creatinine of 1.4. Special studies including CT scans demonstrate improved iliopsoas muscle mass, no fluid filled pelvis/abdomen, abscess decreased in mass size. Patient treated with dual-ABX, low-dose narcotic analgesics, anti-inflammatory agents with overall no signs of sepsis. Patient considered stable for discharge. Instructed to discontinue Bactrim and placed on Clindamycin for 10 days. Patient instructed on warm compress applicatio TID, F/U with PMD within 7-10 days. Patient data External records reviewed:: [facility] previous records (Reviewed prior ED records from 06/18/25. Patient was seen for Intra-abdominal abscess.) Clinical information provided by:: patient Social determinants that could affect healthcare access:: none Patient has the following chronic illnesses:: None reported How is presenting disease/condition affected by chronic disease/condition?: no chronic disease Evaluation data The following diagnostics were reviewed and interpreted by me:: lab results and radiology exam(s) Lab and/or radiology exams considered but not ordered:: None Interpretation Summary: RADIOLOGY Abdomen/Pelvis CT: Findings: No focal liver or splenic lesions No gallstones No pancreatic or adrenal mass No renal or ureteral calculi, no hydronephrosis Absent appendix Decrease in size of mass involving the right iliacus muscle No fluid-filled abdominal or pelvic abscess Mild prostatomegaly Bladder intact IMPRESSION: Decrease in size of infectious mass involving the iliacus muscle on the right Medications / Prescriptions Medications or Prescriptions considered but not ordered:: None Medication administrations:: Medication Administration History Discontinued Medications Clindamycin Phosphate 900 mg/ (IV Miscellaneous Supplies) 50 mls @ 50 mls/hr IV X1 ONE Stop: 08/09/25 21:18 Last Infusion: 08/09/25 22:01 Dose: Infused Documented By: Admin: 08/09/25 21:22 Dose: 50 mls/hr Documented By: BD Ceftriaxone Sodium/Dextrose (Rocephin/D5w 1gm Iv Premix) 1 gm in 50 mls @ 100 mls/hr IV X1 ONE Stop: 08/09/25 20:48 Last Infusion: 08/09/25 21:22 Dose: Infused Documented By: Admin: 08/09/25 20:37 Dose: 100 mls/hr Documented By: BD Sodium Chloride (Ns) 1,000 mls @ 999 mls/hr IV .Q1H1M ONE Stop: 08/09/25 21:19 Last Infusion: 08/09/25 22:01 Dose: Infused Documented By: Admin: 08/09/25 20:35 Dose: 999 mls/hr Documented By: BD Ketorolac Tromethamine (Ketorolac Inj 30 Mg/Ml Vial) 30 mg IVP X1 ONE Stop: 08/09/25 20:20 Last Admin: 08/09/25 20:36 Dose: 30 mg Documented By: BD Morphine Sulfate (Morphine Sulf Inj 4 Mg/Ml Vial) 4 mg IVP X1 ONE Stop: 08/09/25 20:22 Last Admin: 08/09/25 20:36 Dose: 4 mg Documented By: BD Prochlorperazine Edisylate (Prochlorperazine Inj 5 Mg/Ml Vial 2 Ml) 5 mg IV X1 ONE; Protocol Stop: 08/09/25 20:20 Last Admin: 08/09/25 20:37 Dose: 5 mg Documented By: BD See above if any Consultations Consultation(s) initiated? (list below): No Diagnosis Skin/Abscess Differential Diagnosis: abscess of skin or subcutaneous tissue, viral exanthem, allergic reaction to drug, cellulitis, insect bites and contact dermatitis Most likely diagnosis given after review of the tests above:: Cellulitis, Iliopsoas abscess on right Admission Indicated Admission indicated?: not indicated Explain why admission is indicated or not indicated:: Patient does not meet admission criteria Admission Request Was there a request for admission?: No Disposition Plan Disposition Plan: Discharge Discharge Attestation Discharge Attestation: The patient and all family members were given an opportunity to ask questions and understood the discharge instructions. Discharge instructions specifically effects, indications for sooner follow up or return to the emergency department, and the expected course of current diagnosis. Patient condition: Stable Discharge Plan Plan Patient Disposition: HOME (Self Care) Prescriptions/Referrals Prescriptions/Med Rec: New clindamycin HCl [Cleocin HCl] 300 mg capsule 300 mg PO TID Qty: 30 0RF naproxen 250 mg tablet 250 mg PO BID PRN (Reason: pain) Qty: 10 0RF Referrals: No Primary/Family,Physician [Primary Care Provider] - In 1 week Problem List Clinical Impression: Cellulitis, Iliopsoas abscess on right Patient/Caregiver Discharge Instructions Education Materials: Discharge Instructions for Cellulitis, ED Abscess Antibiotic ... Additional Instructions: Warm compresses 3 times daily. Medication as directed. Follow-up with primary care doctor in 7 to 10 days Return for fever vomiting or worsening illness. Print Language: Bengali Stand Alone Forms: Marisol Award Info., Patient Portal Info Letter
[2025-08-09] MEDS: SODIUM CHLORIDE 0.9% 1000 ML 1,000 ML 999 ML IV (20:35)
[2025-08-09] MEDS: MORPHINE SULF INJ 4 MG/ML VIAL IVP (20:36)
[2025-08-09] MEDS: KETOROLAC INJ 30 MG/ML VIAL IVP (20:36)
[2025-08-09] MEDS: PROCHLORPERAZINE INJ 5 MG/ML VIAL 2 ML IV (20:37)
[2025-08-09] MEDS: cefTRIAXone/D5w 1gm IV premix 1 GM/50 ML BAG IV (20:37)
[2025-08-09] MEDS: CLINDAMYCIN 900MG IVPB 900 MG in PRE-MIXED 1 BAG 50 MG IV (21:22)
[2025-08-09 22:40] VITALS: BP 98/58; PULSE 60; RESP 16; TEMP 37; O2SAT 97
== END 2025-08-09 23:52 | disposition home or self-care (01) ==
PROVIDERS: Physician Assistant; Emergency Provider Emergency Medicine
DX: K68.12 Psoas muscle abscess (principal)
CPT/HCPCS: 36415; 74177; 80053; 85025; 96365; 96375; 99284; A4649; J0696; J0736; J0780; J1885; J2270; J7030; Q9967

== ENCOUNTER 2025-08-24 10:23 | Emergency (ER) | payer MEDICAID, SELFPAY ==
[2025-08-24 10:46] VITALS: BP 115/75; PULSE 68; RESP 19; TEMP 36.6; O2SAT 97; BMI 28.4
[2025-08-24 10:50] VITALS: BP 111/65; PULSE 80; RESP 18; TEMP 36.6; O2SAT 96; BMI 18.7
--- NOTE | 2025-08-24 11:06 | EDRME_ITS ---
Rapid Medical Screening Exam [facility] Arrival date/time: 08/24/25 10:23 This is a 44-year-old male that comes in to the emergency room with complaints of abscess to right lower quadrant. Patient was seen here and admitted in May. Patient had a CT scan done that showed infectious mass involving the right iliacus muscle in the pelvis, patient states that this all started in the beginning of May. Patient states that he has been on antibiotics since then. Patient states that his wound is draining fluid it is tender and it is not getting better. I have greeted and performed a focused initial assessment of this patient. Initial appropriate labs ordered at this time. A comprehensive ED assessment and evaluation of the patient and analysis of all test and completion of medical decision making process will be conducted by additional ED provider. Chief Complaint: Abdominal Pain Time Seen by Provider: 08/24/25 10:34 Vital signs: Vital Signs Temperature 97.8 F 08/24/25 10:46 Pulse Rate 68 08/24/25 10:46 Respiratory Rate 19 08/24/25 10:46 Blood Pressure 115/75 08/24/25 10:46 Pulse Oximetry (%) 97 08/24/25 10:46 Oxygen Delivery Method Room Air 08/24/25 10:46 Exam: Patient awake and alert. Breathing even and unlabored. Patient has a wound to right lower quadrant painful to palpation. Erythemic. Clinical Impression: Abscess, cellulitis differential.
[2025-08-24 11:35] LABS: Basophils # (Auto) 0.1 Thou/mm3 (0.0-0.2); Basophils % (Auto) 1 % (0-2.5); Eosinophils # (Auto) 0.3 Thou/mm3 (0.0-0.5); Eosinophils % (Auto) 3 % (0-10); Hematocrit 45.0 % (41.0-53.0); Hemoglobin 14.7 g/dL (13.5-16.0); Immature Granulocytes Auto 0.03 Thou/mm3 (0.00-0.00); Lactate (Lactic Acid) 1.0 mMol/L (0.4-2.0); Lymphocytes # (Auto) 2.0 Thou/mm3 (1.0-4.8); Lymphocytes % (Auto) 22 % (10-50); Mean Corpuscular HGB Conc 32.7 g/dl (31.0-37.0); Mean Corpuscular Hemoglobin 30.9 pg (25.0-35.0); Mean Corpuscular Volume 95 fL (80-100); Monocytes # (Auto) 1.0 Thou/mm3 (0.0-0.8); Monocytes % (Auto) 10 % (0-12); Neutrophils # (Auto) 6.0 Thou/mm3 (1.8-7.7); Neutrophils % (Auto) 64 % (37-80); Nucleated Red Blood Cell # 0.00 Thou/mm3 (0.00-0.00); Nucleated Red Blood Cell % 0 /100 WBC (0); Platelet Count 313 Thou/mm3 (140-440); RDW Standard Deviation 42.7 fL (35.1-43.9); Red Blood Count 4.76 Miln/mm3 (4.50-5.90); White Blood Count 9.3 Thou/mm3 (3.8-10.6)
--- NOTE | 2025-08-24 11:58 | XR_ITS ---
Examination: CT abdomen with intravenous contrast CT pelvis with intravenous contrast 2-D coronal reconstructions 2-D sagittal reconstructions Date and time of exam: August 24, 2025, 1218 hours INDICATIONS: Draining wound in the right lower abdomen 2 months, history infectious mass involving the right iliac is muscle August 09, 2025 CTDI: vol (mGy) 8.0 DLP: (mGycm) 427 Technique: Multiple axial sections of the abdomen and pelvis have been obtained. 64 slice high-resolution scanner used. 3 mm axial sections have been obtained, post intravenous injection 60 cc [id number]-[id number] 2-D sagittal, coronal reconstructions obtained. Low dose protocols were performed. One or more of the following dose reduction techniques were used; automated exposure control, adjustment of the mA and/or KV according to patient size, use of iterative reconstruction technique. Findings: No visualized liver or splenic lesion No gallstones No pancreatic mass No renal or ureteral calculi, no hydronephrosis Aorta normal size. Thickening of the right iliac is muscle mild Soft tissue abscess in the right flank anterior and lateral to the right iliac bone which extends to the skin surface, 7 x 3 x 7 cm No pelvic abscess Bladder intact Absent appendix IMPRESSION: 7 x 3 x 7 cm abscess in the subcutaneous tissue right flank
--- NOTE | 2025-08-24 11:59 | EDNOTE_ITS ---
<Statement entered by Rita Ponce MD - 08/31/25 14:17> As co-signing physician, I was present and available for consult prn. I concur with the plan and care as documented by the midlevel provider. 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 Resulting in a extended admission in May 2025 has since returned for recurrent worsening of pain in the same site today is no different patient has had worsening pain in the past 2 days with small amount of oozing. Patient denies fever or chills he is currently on clindamycin that was prescribed in visit on August 09, 2025. Patient has no other complaints localized pain is a 5 to a 6 on a 10 scale. RME / HPI RME / HPI narrative: 08/24/25 10:23 This is a 44-year-old male that comes in to the emergency room with complaints of abscess to right lower quadrant. Patient was seen here and admitted in May. Patient had a CT scan done that showed infectious mass involving the right iliacus muscle in the pelvis, patient states that this all started in the beginning of May. Patient states that he has been on antibiotics since then. Patient states that his wound is draining fluid it is tender and it is not getting better. I have greeted and performed a focused initial assessment of this patient. Initial appropriate labs ordered at this time. A comprehensive ED assessment and evaluation of the patient and analysis of all test and completion of medical decision making process will be conducted by additional ED provider. Exam: Patient awake and alert. Breathing even and unlabored. Patient has a wound to right lower quadrant painful to palpation. Erythemic. Impression: Abscess, cellulitis differential. Related Data Previous Rx's ?Medication ?Instructions ?Recorded clindamycin HCl 300 mg capsule 300 mg PO TID #30 caps 08/09/25 (Cleocin HCl) naproxen 250 mg tablet 250 mg PO BID PRN pain #10 t abs 08/09/25 meloxicam 7.5 mg tablet 7.5 mg PO QDAY #14 tabs 07/31 04/23 Allergies Allergy/AdvReac Type Severity Reaction Status Date / Time No Known Allergies Allergy Verified 08/24/25 10:30 Review of Systems Review of Systems Narrative Review of Systems: GEN: No fever, no chills, no weight loss EYES: No discharge, no visual changes, no pain HEENT: No ear pain, no congestion, no sore throat PULM: No shortness of breath, no cough, no congestion CV: No chest pain, no dyspnea on exertion, no palpitations GI: No nausea, no vomiting, no diarrhea, no pain, no constipation : No frequency, no urgency, no dysuria MUSC/SKEL: Right hip abscess, no joint pain, no back pain SKIN: No rash PSYCH: No hallucinations, no depression HEME/LYMPH: No easy bleeding or bruising tendencies NEURO: No weakness, no headache Past Medical History Past Medical History NEUROLOGIC: Negative Neurological Disorders CARDIAC: Negative Cardiac Disorders or Congestive Heart Failure RESPIRATORY: Negative Chronic Obstructive Pulmonary Disease (COPD) or Asthma GASTROINTESTINAL: Negative Gastrointestinal Disorders GENITOURINARY: Negative Genitourinary Disorders or Renal Disease MUSCULOSKELETAL: Negative Musculoskeletal Disorders ENDOCRINE: Negative Endocrine Disorders, Diabetes Mellitus Type 1 or Diabetes Mellitus Type 2 HEMATOLOGIC: Negative Blood Disorders or Sickle Cell Disease Surgical History SURGICAL: Positive Abdominal Surgery; Negative Cardiac Surgery, Endocrine Surgery, Thyroidectomy, Ear Surgery, Neph rectomy or Joint Replacement Social History SMOKING STATUS: Never smoker SUBSTANCE USE: does not use ED Exam Narrative Physical exam: [General: In mild discomfort but not in any acute distress Head normocephalic HEENT: Within acceptable limits Neck is supple nontender Chest equal chest rise nontender to palpation Respiratory: Clear to auscultation no wheezes crackles or rubs CV: Rate rhythm is regular no murmurs rubs or clicks Abdomen is distended secondary to body habitus soft nontender no masses positive bowel sounds all 4 quadrants Back: No CVA tenderness no spinous process tenderness from cervical spine thoracic and lumbar spine Skin: Right hip just medial to the iliac crest, there is a 6 x 4 cm abscess mass with a small amount of oozing exudate through pin site eyes holes. Minimal surrounding erythema warm to touch. No streaking. Otherwise skin is intact no petechiae rash induration ulceration or crepitus Extremities: Moving all extremities against resistance cap refill less than 2 seconds neurosensory intact Neuro: Awake alert oriented x3 Glascow coma 15 no focal deficits] Course Course Course Narrative: Patient is in agreement to a third CT with IV contrast since May to determine the extent of this abscess. Plan: If the abscess is superficial and medium abdomen wall may be able to I&D at here otherwise patient may need surgical consult. Case discussed with Dr. Benavides, who agrees I&D can be performed at bedside. See procedure note. Quality Measures none Orders Category Date Time Status CT Screening NOW Care 08/24/25 11:[address] abdomen pelvis w con Stat Exams 08/24/25 11:58 Completed Blood Culture (Lab) Stat Lab 08/24/25 11:20 Received CBC Stat Lab 08/24/25 11:26 Completed Comprehensive Metabolic Panel Stat Lab 08/24/25 11:26 Completed Lactate (Lactic Acid) Stat Lab 08/24/25 11:26 Completed Procalcitonin Stat Lab 08/24/25 11:26 Completed Lidocaine 1% 20 ml [Xylocaine 1% 20 ML] Med 08/24/25 13:38 Discontinued 20 ml INFL X1 ONE oxyCODONE/APAP 5/325 [Percocet 5/325] Med 08/24/25 14:43 Once 1 tab PO X1 ONE Vital Signs Vital signs: Vital Signs Temperature 97.8 F 08/24/25 10:46 Pulse Rate 68 08/24/25 10:46 Respiratory Rate 19 08/24/25 10:46 Blood Pressure 115/75 08/24/25 10:46 Pulse Oximetry (%) 97 08/24/25 10:46 Oxygen Delivery Method Room Air 08/24/25 10:46 PROCEDURES: Procedure Comment I&D drainage, site was anesthetized with 1% lidocaine 3 mL, using a #11 scalpel 2 cm full-thickness incision was made. A moderate amount of exudate was expressed without complication the site was then packed. Bulky dressing applied, patient tolerated the procedure well. Discharge Plan Plan Patient Disposition: HOME (Self Care) Patient condition on transfer: Stable Prescriptions/Referrals Prescriptions/Med Rec: New meloxicam 7.5 mg tablet 7.5 mg PO QDAY Qty: 14 0RF No Action clindamycin HCl [Cleocin HCl] 300 mg capsule 300 mg PO TID Qty: 30 0RF naproxen 250 mg tablet 250 mg PO BID PRN (Reason: pain) Qty: 10 0RF Referrals: Kolton Hinds MD [Primary Care Provider, Family Practice] - In 1 week Problem List Clinical Impression: Abdominal abscess Patient/Caregiver Discharge Instructions Other Activity Instructions:: Continue on the antibiotics as prescribed. Take the pain medication as needed for temporary pain relief. Return in 3 days for packing removal. Education Materials: ED Abscess, Incision And Drainage Print Language: Marshallese Stand Alone Forms: Marisol Award Info., Patient Portal Info Letter, Work/School Release PA/FUEL CONVERSION TECHNICIAN Supervising Physician PA/FUEL CONVERSION TECHNICIAN Supervising Physician: Rhett Rowe ENP [facility] Clinical Information Provided by: patient Medical Records reviewed [facility] Meds/Rx considered, not ordered None Labs/Rad/Tests considered, not ordered None EKG EKG not done Labs Labs: interpreted by [facility] Lab(s) Interpretation(s): CBC shows no acute leukocytosis anemia thrombocytopenia CMP shows no significant electrolyte imbalances renal impairment transaminitis or T. bili elevation. Lactic acid is negative Procalcitonin is negative. Imaging Imaging interpretation: interpreted by [facility] Imaging Interpretation(s): CT shows a superficial abscess with no attenuation. Medication Administration(s) Medication Administration History Discontinued Medications Lidocaine HCl (Lidocaine Hcl 1% 20 Ml Vial) 20 ml INFL X1 ONE Stop: 08/24/25 13:39 Last Admin: 08/24/25 14:19 Dose: 20 ml Documented By: WALT
[2025-08-24 12:01] LABS: Alanine Aminotransferase 14 U/L (10-49); Albumin, Serum 4.3 gm/dL (3.5-5.0); Albumin/Globulin Ratio 1.4 (1.2-2.2); Alkaline Phosphatase 85 U/L (46-116); Anion Gap 8 (7-16); Aspartate Amino Transferase 22 U/L (0-34); BUN/Creatinine Ratio 9 Ratio (12-20); Bilirubin,Total 0.4 mg/dL (0.3-1.2); Blood Urea Nitrogen 9 mg/dL (9-23); Calcium 8.9 mg/dL (8.3-10.6); Calcium (Corrected) 8.9 mg/dL (8.5-10.1); Carbon Dioxide 29.2 mMol/L (20.0-31.0); Chloride 104 mMol/L (98-107); Creatinine (Component) 1.0 mg/dL (0.6-1.3); Estimated Creatinine Clearance 64.7 mL/min (>60); Globulin 3.1 gm/dL (2.3-3.5); Glucose 71 mg/dL (74-106); Osmolality,Calculated 277 (275-295); Potassium 4.1 mMol/L (3.4-5.1); Procalcitonin < 0.04 ng/ml (0.0-0.49); Sodium 141 mMol/L (136-145); Total Protein 7.4 gm/dL (5.7-8.2); eGFR > 60 See Note
[2025-08-24] MEDS: LIDOCAINE HCL 1% 20 ML VIAL INFL (14:19)
[2025-08-24 14:44] VITALS: BP 117/74; PULSE 61; RESP 18; TEMP 36.7; O2SAT 98
== END 2025-08-24 15:14 | disposition home or self-care (01) ==
PROVIDERS: Nurse Practitioner Family; Emergency Provider Emergency Medicine; PCP Family Medicine
DX: L02.211 Cutaneous abscess of abdominal wall (principal)
CPT/HCPCS: 10060; 36415; 74177; 80053; 83605; 84145; 85025; 87040; 99281; A4649; J3490; Q9967; A9270

== ENCOUNTER 2025-08-27 10:30 | Inpatient (IN) | payer MEDICAID, SELFPAY ==
[2025-08-27 10:32] VITALS: BMI 28.4
[2025-08-27 10:45] VITALS: BP 127/78; PULSE 62; RESP 19; TEMP 36.9; O2SAT 98; BMI 28.9
[2025-08-27 11:29] LABS: Lactate (Lactic Acid) 1.2 mMol/L (0.4-2.0)
[2025-08-27 11:36] LABS: Basophils # (Auto) 0.1 Thou/mm3 (0.0-0.2); Basophils % (Auto) 1 % (0-2.5); Eosinophils # (Auto) 0.2 Thou/mm3 (0.0-0.5); Eosinophils % (Auto) 3 % (0-10); Hematocrit 44.8 % (41.0-53.0); Hemoglobin 14.9 g/dL (13.5-16.0); Immature Granulocytes Auto 0.04 Thou/mm3 (0.00-0.00); Lymphocytes # (Auto) 1.8 Thou/mm3 (1.0-4.8); Lymphocytes % (Auto) 24 % (10-50); Mean Corpuscular HGB Conc 33.3 g/dl (31.0-37.0); Mean Corpuscular Hemoglobin 31.2 pg (25.0-35.0); Mean Corpuscular Volume 94 fL (80-100); Monocytes # (Auto) 0.6 Thou/mm3 (0.0-0.8); Monocytes % (Auto) 8 % (0-12); Neutrophils # (Auto) 4.6 Thou/mm3 (1.8-7.7); Neutrophils % (Auto) 64 % (37-80); Nucleated Red Blood Cell # 0.00 Thou/mm3 (0.00-0.00); Nucleated Red Blood Cell % 0 /100 WBC (0); Platelet Count 288 Thou/mm3 (140-440); RDW Standard Deviation 42.4 fL (35.1-43.9); Red Blood Count 4.77 Miln/mm3 (4.50-5.90); White Blood Count 7.3 Thou/mm3 (3.8-10.6)
[2025-08-27 11:46] LABS: INR 1.0 (0.9-1.3); Partial Thromboplastin Time 27.7 Seconds (22.0-36.0); Prothrombin Time 10.4 Seconds (9.0-12.2)
[2025-08-27 11:59] LABS: Alanine Aminotransferase 19 U/L (10-49); Albumin, Serum 4.4 gm/dL (3.5-5.0); Albumin/Globulin Ratio 1.5 (1.2-2.2); Alkaline Phosphatase 87 U/L (46-116); Anion Gap 7 (7-16); Aspartate Amino Transferase 27 U/L (0-34); BUN/Creatinine Ratio 12 Ratio (12-20); Bilirubin,Total 0.3 mg/dL (0.3-1.2); Blood Urea Nitrogen 12 mg/dL (9-23); C-Reactive Protein < 0.5 mg/dL (0.0-0.9); Calcium 9.4 mg/dL (8.3-10.6); Calcium (Corrected) 9.4 mg/dL (8.5-10.1); Carbon Dioxide 30.1 mMol/L (20.0-31.0); Chloride 103 mMol/L (98-107); Creatinine (Component) 1.0 mg/dL (0.6-1.3); Estimated Creatinine Clearance 92.4 mL/min (>60); Globulin 3.0 gm/dL (2.3-3.5); Glucose 105 mg/dL (74-106); Osmolality,Calculated 279 (275-295); Potassium 4.2 mMol/L (3.4-5.1); Procalcitonin < 0.04 ng/ml (0.0-0.49); Sodium 140 mMol/L (136-145); Total Protein 7.4 gm/dL (5.7-8.2); eGFR > 60 See Note
--- NOTE | 2025-08-27 12:09 | EDNOTE_ITS ---
ED Skin Abcess FB-RME/HPI General Chief complaint: Wound Recheck / Suture Removal Stated complaint: WAS TOLD TO COME BACK IN 3 DAYS S/P I&D Time Seen by Provider: 08/27/25 10:34 Arrival date/time: 08/27/25 10:30 44-year-old male that comes in to the emergency room with complaints of abscess to right lower quadrant. Patient was seen here and admitted in May. Patient had a CT scan done that showed infectious mass involving the right iliacus muscle in the pelvis, patient states that this all started in the beginning of May. Patient states that he has been on antibiotics since then. Patient had a I&D 3days ago here in the emergency department and is here for wound recheck. Patient reports no nausea vomiting or fever patient reports abscess has not improved Limitations: no limitations Related Data Previous Rx's ?Medication ?Instructions ?Recorded clindamycin HCl 300 mg capsule 300 mg PO TID #30 caps 08/09/25 (Cleocin HCl) Allergies Allergy/AdvReac Type Severity Reaction Status Date / Time No Known Allergies Allergy Verified 08/27/25 10:36 Review of Systems Review of Systems Systems Reviewed: All systems reviewed, normal except as documented Constitutional Constitutional: Reports system reviewed and no additional complaints, except as documented, Denies fever(s) and Denies headache(s) Eyes Eyes: Reports system reviewed and no additional complaints, except as documented and Denies blurry vision ENT Ears, Nose, Mouth, and Throat: Reports system reviewed and no additional complaints, except as documented, Denies headache(s), Denies nasal congestion and Denies nasal discharge Cardiovascular Cardiovascular: Reports system reviewed and no additional complaints, except as documented, Denies chest pain and Denies dyspnea Respiratory Respiratory: Reports system reviewed and no additional complaints, except as documented, Denies chest congestion, Denies cough and Denies dyspnea Gastrointestinal Gastrointestinal: Reports system reviewed and no additional complaints, except as documented and Denies abdominal pain Integumentary/Breasts Skin/Breast: Reports system reviewed and no additional complaints, except as documented, Denies rash and Reports other (Cellulitis, abscess right lower abdomen) Neurologic Neurologic: Reports system reviewed and no additional complaints, except as documented, Reports as per HPI and Denies headache(s) Past Medical History Past Medical History NEUROLOGIC: Negative Neurological Disorders CARDIAC: Negative Cardiac Disorders or Congestive Heart Failure RESPIRATORY: Negative Chronic Obstructive Pulmonary Disease (COPD) or Asthma GASTROINTESTINAL: Negative Gastrointestinal Disorders GENITOURINARY: Negative Genitourinary Disorders or Renal Disease MUSCULOSKELETAL: Negative Musculoskeletal Disorders ENT: Negative History of ENT Problems ENDOCRINE: Negative Endocrine Disorders, Diabetes Mellitus Type 1 or Diabetes Mellitus Type 2 HEMATOLOGIC: Negative Blood Disorders or Sickle Cell Disease OTHER HISTORY: Positive Hospitalization; Negative Autoimmune Disease, Down Syndrome, Developmental Delay, Shingles, Falls, Blood Transfusions, Blood Transfusion Reaction, Anesthesia Reactions, Organ Transplant, Chemotherapy, Radiation Therapy, Hyperbaric Therapy, MRSA, VRSA, Vancomycin-Resistant Enterococci, Human Immunodeficiency Virus (HIV), Chicken Pox, Measles, Mumps, Rubella ([place]ian Measles), Pertussis, Clostridium Difficile or Cancer Family History FAMILY HISTORY: Negative Family Psychiatric Problems, Family Respiratory Disorders, Family Cardiac Disorders, Family Gastrointestinal Problems, Family Genitourinary Problems, Family Endocrine Disorders, Family Reproductive Disorders, Family Musculoskeletal Disorders or Family Cancer Surgical History SURGICAL: Positive Abdominal Surgery; Negative Cardiac Surgery, Endocrine Surgery, Thyroidectomy, Ear Surgery, Nephrectomy, Joint Replacement or Organ Transplant Social History SMOKING STATUS: Never smoker SUBSTANCE USE: does not use ED Exam General Limitations: Present no limitations General appearance: Present alert and in no apparent distress Head Head exam: Present atraumatic Eye Eye exam: Present normal appearance, PERRL and EOMI ENT ENT exam: Present normal exam, normal oropharynx and mucous membranes moist Neck Neck exam: Present normal inspection, full ROM and trachea midline Chest Chest inspection: Present normal inspection and symmetric chest wall rise Respiratory Respiratory exam: Present normal lung sounds bilaterally Cardiovascular Cardiovascular exam: Present regular rate, normal rhythm and normal heart sounds Abdominal Exam Abdominal exam: Present soft and normal bowel sounds Extremities Exam Extremities exam: Present normal inspection and full ROM Back Exam Back exam: Present normal inspection and full ROM Neurological Exam Neurological exam: Present alert, oriented X3 and CN II-XII intact Psychiatric Psychiatric exam: Present normal affect and normal mood Skin Skin exam: Present warm, dry and other (Cellulitis, abscess right lower abdomen) Expanded Skin Exam Body image: 2 1. Abscess with packing in place Course Quality Measures none Orders Category Date Time Status COVID-19 Screening Questionnaire NOW Care 08/27/25 12:00 Active Decision to Admit X1 Care 08/27/25 12:00 Completed Insert IV NOW Care 08/27/25 10:51 Completed Blood Culture (Lab) Stat Lab 08/27/25 11:15 Received CBC Stat Lab 08/27/25 11:17 Completed CMP [Comprehensive Metabolic Panel] Stat Lab 08/27/25 11:17 Completed CRP [C-Reactive Protein] Stat Lab 08/27/25 11:17 Completed ESR [Sed Rate (ESR)] Stat Lab 08/27/25 11:17 Completed Lactic Acid [Lactate (Lactic Acid)] Stat Lab 08/27/25 11:17 Completed PT [Prothrombin Time with INR] Stat Lab 08/27/25 11:17 Completed PTT [Partial Thromboplastin Time] Stat Lab 08/27/25 11:17 Completed Procalcitonin Stat Lab 08/27/25 11:17 Completed Vital Signs Vital signs: Vital Signs Temperature 98.5 F 08/27/25 10:45 Pulse Rate 62 08/27/25 10:45 Respiratory Rate 19 08/27/25 10:45 Blood Pressure 127/78 08/27/25 10:45 Pulse Oximetry (%) 98 08/27/25 10:45 Oxygen Delivery Method Room Air 08/27/25 10:45 O2 saturation 98% room air with normal limits Skin / Abscess / Foreign Body MDM Narrative MDM Narrative:: 44-year-old male that comes in to the emergency room with complaints of abscess to right lower quadrant. Patient was seen here and admitted in May. Patient had a CT scan done that showed infectious mass involving the right iliacus muscle in the pelvis, patient states that this all started in the beginning of May. Patient states that he has been on antibiotics since then. Patient had a I&D 3days ago here in the emergency department and is here for wound recheck. Patient reports no nausea vomiting or fever On exam patient has packing in place with an abscess patient reports symptoms not improved since I&D As patient has a rather large abscess confirmed by CT scan I believe the patient would benefit from admission and IV antibiotics Consultation: Spoke with Dr. Ruggiero who states she will consult on patient and take the patient to surgery as needed Spoke with hospitalist team Dr. Bo who states he will admit the patient to the hospital At time of admission patient is no distress Patient data External records reviewed:: [facility] previous records Clinical information provided by:: patient Social determinants that could affect healthcare access:: none Patient has the following chronic illnesses:: See history How is presenting disease/condition affected by chronic disease/condition?: c aused by Evaluation data The following diagnostics were reviewed and interpreted by me:: lab results Lab and/or radiology exams considered but not ordered:: Labs obtained Interpretation Summary: Reviewed from 3 days ago Medications / Prescriptions Medications or Prescriptions considered but not ordered:: Given Medication administrations:: Medication Administration History Acetaminophen (Acetaminophen 325 Mg Tablet) 650 mg PO Q6H PRN PRN Reason: Fever >101.5 Stop: 09/26/25 13:11 Acetaminophen (Acetaminophen 325 Mg Tablet) 650 mg PO Q6H PRN PRN Reason: PAIN SCALE 1-3 (mild Stop: 09/26/25 13:11 Hydrocodone Bitart/Acetaminophen (Hydrocodone/Apap 10/325 Tab) 1 tab PO Q4HR PRN PRN Reason: PAIN SCALE 7-10 (Severe Stop: 09/01/25 13:11 Al Hydrox/Mg Hydrox/Simethicone (Mg Hyd/Al Hyd/Malik (Maalox Reg) Susp 30 Ml Udc) 30 ml PO Q6H PRN PRN Reason: Indigestion Stop: 09/26/25 13:11 Piperacillin/Tazobactam/Dextrose (Zosyn) 3.375 gm in 50 mls @ 12.5 mls/hr IV Q8HR EDI; Protocol Stop: 09/04/25 00:29 Last Admin: 08/28/25 05:52 Dose: 12.5 mls/hr Documented By: Infusion: 08/28/25 03:54 Dose: Infused Documented By: Admin: 08/27/25 23:54 Dose: 12.5 mls/hr Documented By: ANABELL Ondansetron HCl (Ondansetron Inj 2 Mg/Ml Inj 2 Ml) 4 mg IVP Q6H PRN; Protocol PRN Reason: NAUSEA OR VOMITING Stop: 09/26/25 13:11 Oxycodone/Acetaminophen (Oxycodone/Apap 5/325 Tablet) 1 tab PO Q6H PRN PRN Reason: PAIN SCALE 4-6 (Moderate Stop: 09/01/25 13:11 Pharmacy Consult (Vancomycin Pharmacy To Dose 1 Each Each) 1 each IV QDAY EDI Stop: 09/26/25 17:14 Last Admin: 08/27/25 19:24 Dose: 1 each Documented By: DM Comments: First dose given at 1830 Discontinued Medications Dexamethasone Sodium Phosphate (Dexamethasone Sod Phos Inj 10 Mg/Ml Vial) Confirm Administered Dose 10 mg .ROUTE .STK-MED ONE Stop: 08/28/25 04:31 Enoxaparin Sodium (Enoxaparin Sod Inj 40 Mg/0.4 Ml Syringe) 40 mg SC QDAY EDI Stop: 09/11/25 08:59 Fentanyl Citrate (Fentanyl Cit Inj 50 Mcg/Ml Amp 2ml) Confirm Administered Dose 100 mcg .ROUTE .STK-MED ONE Stop: 08/28/25 04:30 Fentanyl Citrate (Fentanyl Cit Inj 50 Mcg/Ml Amp 2ml) Confirm Administered Dose 100 mcg .ROUTE .STK-MED ONE Stop: 08/28/25 04:47 Vancomycin HCl/Dextrose (Vancomycin/D5w 1500 Mg Ivpb) 300 mls @ 120 mls/hr IV X1 ONE Stop: 08/27/25 20:29 Last Admin: 08/27/25 18:43 Dose: 120 mls/hr Documented By: DM Piperacillin/Tazobactam/Dextrose (Zosyn) 3.375 gm in 50 mls @ 100 mls/hr IV X1 ONE; Protocol Stop: 08/27/25 20:44 Last Admin: 08/27/25 20:52 Dose: 100 mls/hr Documented By: ANABELL Lidocaine HCl (Lidocaine Inj Pf 1% 2 Ml Vial) Confirm Administered Dose 2 ml .ROUTE .STK-MED ONE Stop: 08/28/25 04:31 Metoclopramide HCl (Metoclopramide Inj 5 Mg/Ml Vial 2 Ml) Confirm Administered Dose 10 mg .ROUTE .STK-MED ONE Stop: 08/28/25 04:31 Propofol (Propofol Inj 10 Mg/Ml Vial 20 Ml) Confirm Administered Dose 400 mg IV .STK-MED ONE Stop: 08/28/25 04:30 Given Consultations Consultation(s) initiated? (list below): No Diagnosis Skin/Abscess Differential Diagnosis: abscess of skin or subcutaneous tissue and cellulitis Most likely diagnosis given after review of the tests above:: Abscess Admission Indicated Admission indicated?: not indicated Admission Request Was there a request for admission?: No Disposition Plan Disposition Plan: Discharge Discharge Attestation Discharge Attestation: The patient and all family members were given an opportunity to ask questions and understood the discharge instructions. Discharge instructions specifically effects, indications for sooner follow up or return to the emergency department, and the expected course of current diagnosis. Patient condition: Stable Discharge Plan Plan Patient Disposition: Admit Acute Care w/in Hospital Discharge Disposition comment: Stable Problem List Clinical Impression: Abdominal abscess
--- NOTE | 2025-08-27 13:12 | PD.RESCONSUL ---
HPI Data of Consult Primary Care Provider: Kolton Hinds MD Consult Narrative History of present illness: Spoke to pt with in-person spring tacker Asim Griffin is a 44 yo male here for a follow-up on a right psoas iliacus abscess I&D performed on 08/24. Pt was initially treated for this 05/2025 at which time the abscess was confined to the psoas/iliacus and he underwent image guided drainage. As of 08/24 the abscess is more superficial, extending to the skin and so pt underwent I&D with packing placed. Since the I&D he has not experienced fever, chills, anorexia, or malaise but has had to change the dressing multiple times per day and at previous ED visit was advised to return for reassessment today cc:: cc: Review of Systems Review of Systems Systems Reviewed: All systems reviewed, normal except as documented Exam Vital Signs Temp Pulse Resp BP Pulse Ox O2 Del Method 98.5 F 62 19 127/78 98 Room Air 08/27/25 10:45 08/27/25 10:45 08/27/25 10:45 08/27/25 10:45 08/27/25 10:45 08/27/25 10:45 Constitutional Constitutional: no acute distress Routine Respiratory Exam Respiratory: Present lungs clear, normal breath sounds and no resp distress Routine Cardiovascular Exam Cardiovascular: Present RRR, S1 and S2; Absent murmur Routine Abdominal Exam Abdominal: Present soft and normoactive bowel sounds; Absent tenderness, distended, rebound, guarding, firm, organomegaly or bruit Comments: Right hip incision approx 1.5cm in transverse dimension with packing in place and purulent drainage. Area is indurated and mildly tender with surrounding erythema Results Labs 08/27/25 11:17 08/27/25 11:17 Labs: Short CBC 08/27/25 Range/Units 11:17 WBC 7.3 (3.8-10.6) Thou/mm3 Hgb 14.9 (13.5-16.0) g/dL Hct 44.8 (41.0-53.0) % Plt Count 288 (140-440) Thou/mm3 BMP 08/27/25 11:17 Sodium 140 Potassium 4.2 Chloride 103 Carbon Dioxide 30.1 BUN 12 Creatinine 1.0 Glucose 105 Calcium 9.4 Liver Function 08/27/25 Range/Units 11:17 Total Bilirubin 0.3 (0.3-1.2) mg/dL AST 27 (0-34) U/L ALT 19 (10-49) U/L Alkaline Phosphatase 87 (46-116) U/L Albumin 4.4 (3.5-5.0) gm/dL Quality Measures Quality Measures none Medications Home Medications and Allergies Allergies Allergy/AdvReac Type Severity Reaction Status Date / Time No Known Allergies Allergy Verified 08/27/25 10:36 Assessment & Plan Assessment 44M here for follow-up on right hip abscess I&D. As the surrounding skin is indurated I offered to extend the incision in the operating room. All questions were answered and pt is agreeable to proceeding NPO after MN for I&D tomorrow am Plan OR today for extension of I&D of right psoas iliacus abscess.
--- NOTE | 2025-08-27 13:18 | ESHP_ITS ---
Documentation for date of: 08/27/25 [facility] History of Present Illness History of present illness: Mr. Elias Dailey, is 44 y/o M, without significant past medical history, presents to ED on 08/27/2025, for follow up after incision and drainage of the right psoas/iliacus abscess performed in 08/24/2025. The patient reports the abscess began 05/2025 with no known precipitating factors. He denies any history of trauma, falls, strenuous physical activity, or relevant family history when it began. At the time, the infection was confined to the psoas and iliacus muscles. Patient received incision and drainage on 08/24. Denies chest pain, palpation, SOB, abdominal pain, N/V, fevers or chills. Patient will be admitted for management of the right flank abscess. ED course: CT abd/pelvis w contrast (08/24/2025): Soft tissue abscess in the right flank anterior and lateral to the right iliac bone which extends to the skin surface, 7 x 3 x 7 cm Medical history: As stated above Surgical history: Incision and drainage on 08/24 Allergies: NKDA Medications: Pending official med rec Family history: Noncontributory Social history: Denies smoking cigarettes, drinking alcohol or using other illicit drugs Review of Systems Review of Systems Narrative Review of Systems: All 12 systems assessed and the patient denies unless otherwise stated in HPI Exam Vital Signs Temp Pulse Resp BP Pulse Ox O2 Del Method 98.5 F 62 19 127/78 98 Room Air 08/27/25 10:45 08/27/25 10:45 08/27/25 10:45 08/27/25 10:45 08/27/25 10:45 08/27/25 10:45 Narrative Exam General: No acute distress, well nourished, AAO x3 Eye: PERRL, EOMI, normal conjunctiva, no scleral icterus HENT: Normocephalic, atraumatic, hearing intact to conversation at normal volume, moist oral mucosa Neck: Supple, non-tender, no JVD, no lymphadenopathy Lungs: Non-labored respirations, symmetric chest rise, Clear to auscultate bilaterally, No wheezing, rhonchi, crackles Heart: Peripheral pulses intact bilaterally, Regular Rate and Rhythm. Abdomen: Soft, non-tender, non-distended, no palpable masses Musculoskeletal: Normal range of motion and strength, No cyanosis or edema, No visible joint swelling Skin: Skin is warm, dry, Right side abscess, fluffed gauze dressing secured with tape. Psychiatric: Cooperative, appropriate mood and affect, Awake and alert, not agitated Neuro: Cranial nerves II-XII grossly intact. Strength 5/5 throughout. Sensations intact to light touch. Results: Labs 08/27/25 11:17 08/27/25 11:17 Labs: Short CBC 08/27/25 Range/Units 11:17 WBC 7.3 (3.8-10.6) Thou/mm3 Hgb 14.9 (13.5-16.0) g/dL Hct 44.8 (41.0-53.0) % Plt Count 288 (140-440) Thou/mm3 BMP 08/27/25 11:17 Sodium 140 Potassium 4.2 Chloride 103 Carbon Dioxide 30.1 BUN 12 Creatinine 1.0 Glucose 105 Calcium 9.4 Liver Function 08/27/25 Range/Units 11:17 Total Bilirubin 0.3 (0.3-1.2) mg/dL AST 27 (0-34) U/L ALT 19 (10-49) U/L Alkaline Phosphatase 87 (46-116) U/L Albumin 4.4 (3.5-5.0) gm/dL Quality Measures Quality Measures none Medications Home Medications and Allergies Allergies Allergy/AdvReac Type Severity Reaction Status Date / Time No Known Allergies Allergy Verified 08/27/25 10:36 Visit Medications Acetaminophen (Acetaminophen 325 Mg Tablet) 650 mg PO Q6H PRN PRN Reason: Fever >101.5 Stop: 09/26/25 13:11 Acetaminophen (Acetaminophen 325 Mg Tablet) 650 mg PO Q6H PRN PRN Reason: PAIN SCALE 1-3 (mild Stop: 09/26/25 13:11 Hydrocodone Bitart/Acetaminophen (Hydrocodone/Apap Tab) 1 tab PO Q4HR PRN PRN Reason: PAIN SCALE 7-10 (Severe Stop: 09/01/25 13:11 Al Hydrox/Mg Hydrox/Simethicone (Mg Hyd/Al Hyd/Malik (Maalox Reg) Susp 30 Ml Udc) 30 ml PO Q6H PRN PRN Reason: Indigestion Stop: 09/26/25 13:11 Enoxaparin Sodium (Enoxaparin Sod Inj 40 Mg/0.4 Ml Syringe) 40 mg SC QDAY EDI Stop: 09/11/25 08:59 Ondansetron HCl (Ondansetron Inj 2 Mg/Ml Inj 2 Ml) 4 mg IVP Q6H PRN; Protocol PRN Reason: NAUSEA OR VOMITING Stop: 09/26/25 13:11 Oxycodone/Acetaminophen (Oxycodone/Apap 5/325 Tablet) 1 tab PO Q6H PRN PRN Reason: PAIN SCALE 4-6 (Moderate Stop: 09/01/25 13:11 Assessment & Plan Plan Mr. Elias Dailey, is 44 y/o M, without significant past medical history, presents to ED on 08/27/2025, for follow up after incision and drainage of the right psoas/iliacus abscess performed in 08/24/2025. The patient reports the abscess began 05/2025 with no known precipitating factors. He denies any history of trauma, falls, strenuous physical activity, or relevant family history when it began. At the time, the infection was confined to the psoas and iliacus muscles. Patient received incision and drainage on 08/24. Denies chest pain, palpation, SOB, abdominal pain, N/V, fevers or chills. Patient will be admitted for management of the right flank abscess. #Right side abscess -CT abd/pelvis w contrast (08/24/2025): Soft tissue abscess in the right flank anterior and lateral to the right iliac bone which extends to the skin surface, 7 x 3 x 7 cm -Past CT abd/pelvis w contrast (06/18/2025): Abscess involving the right psoas and right iliacus muscle, at least 6 cm in mediolateral dimension and extending cephalocaudad over dimension of at least 10 cm -Incision and Drainage done 08/24 Plan: -On IV Vancomycin qd, and IV Zosyn 3.375g IV q6hr (08/27-) -Planned for incision and drainage tomorrow -Consulted General Surgery, Dr. Ruggiero, Appreciate recommendations -Blood culture pending Disposition: Medsur Diet: Regular diet, NPO after midnight GI prophylaxis: Maalox DVT prophylaxis: Not given Code:FULL Assessment and plan discussed with my attending physician Dr. Bo and Dr. Santiago (PGY-3) Dr. Ricardo (PGY-1) - Internal medicine resident Attending Provider Attestation/Addendum I have examined the patient, reviewed labs and imaging findings, discussed the case with the resident(s), and reviewed entered orders. I agree with the plan of care as outlined in this note, with these additional summaries/recommendations: After examination of the patient and review of the clinical data, I feel that this patient needs admission to the hospital for further treatment and evaluation. Patient is a 44-year-old male with no significant past medical history who presents to [facility] emergency department on 08/27/2025 with chief complaint of abscess. Patient seen at bedside. He is diagnosed with right cirrhosis iliac us abscess which was originally diagnosed on 05/2025 and was drained at that time and received an extended course of IV antibiotics. Interestingly culture results at that time did not grow anything. Patient's symptoms initially improved although then worsened. He presented to the ED on 08/24 and underwent incision and drainage with packing. Patient's abscess continued to worsen and he presented back to the emergency room. Start broad-spectrum IV antibiotics. Follow-up blood cultures. General surgery consulted with plans for I&D and intraoperative cultures. Tylenol and [place] as needed for pain management. N.p.o. after midnight for I&D. Hold chemical anticoagulation. Patient updated on the plan and agreement. All questions answered to satisfaction. Please see residents note for additional details of management. Dr. Anupam MD
[2025-08-27 13:47] LABS: Sed Rate (ESR) 45 mm/hr (0-15)
[2025-08-27 14:45] VITALS: BP 111/69; PULSE 60; RESP 16; O2SAT 98
--- NOTE | 2025-08-27 15:59 | PC.NURSE ---
per dr toribio via telephone patient will have surgery tomorrow morning around 10am. patient okay to eat at this time. npo at midnight
[2025-08-27 18:10] VITALS: BMI 31.8
[2025-08-27] MEDS: VANCOMYCIN/D5W 1500 MG IVPB 300 ML 120 MG IV (18:43)
[2025-08-27 20:00] VITALS: BP 111/64; PULSE 62; RESP 17; TEMP 36.4; O2SAT 98
[2025-08-27] MEDS: PIPER/TAZO 3.375 GM PREMIX 3.375 GM/50 ML BAG IV ×2 (20:52→23:54)
[2025-08-28] VITALS (14 sets, daily range): BP systolic 91–132; BP diastolic 57–74; PULSE 60–86; RESP 5–18; TEMP 36.1–37.3; O2SAT 95–100
--- NOTE | 2025-08-28 05:07 | SUR.PHASEI ---
pt received to [facility] 2. vss. breathing slow with lma, in place to oxygen. dr devine at bedside. dressing cdi. reprt from dr devine and nurse arauz.
--- NOTE | 2025-08-28 05:07 | PD.SUROPNT ---
Date of Procedure 08/28/25 Pre Op Diagnosis Right hip abscess Post Op Diagnosis Same Procedure Incision and drainage of right hip abscess Findings Right hip abscess with minimal pus Procedure Description After discussion of risks and benefits, patient was brought to the operating room, SCDs were placed and general anesthesia was induced. He is receiving scheduled antibiotics and was prepped and draped in the usual sterile fashion. After timeout the existing incision at the right hip abscess was extended medially with a #15 blade. Pressure was applied to the surrounding skin and a few cc of pus were returned. The wound was irrigated with Betadine, hydrogen peroxide and saline and hemostasis was achieved with electrocautery. The wound was packed with a moistened Kayla and covered with fluffs and an abdominal pad. Patient was extubated and brought to PACU in stable condition Pathology / specimen None Estimated Blood Loss 10 Surgeon Radha Ruggiero MD Surgical Staff Operation Date: 08/28/25 04:00 <No data on this case meets the specified criteria>
--- NOTE | 2025-08-28 05:37 | SUR.PHASEI ---
report called to [facility] on ms. vss. breathing even and unlabored. dressing remains cdi. denies pain and nausea. transported to room via rney.
[2025-08-28] MEDS: PIPER/TAZO 3.375 GM PREMIX 3.375 GM/50 ML BAG IV ×3 (05:52→21:25)
[2025-08-28 09:37] LABS: Basophils # (Auto) 0.0 Thou/mm3 (0.0-0.2); Basophils % (Auto) 0 % (0-2.5); Eosinophils # (Auto) 0.0 Thou/mm3 (0.0-0.5); Eosinophils % (Auto) 0 % (0-10); Hematocrit 46.6 % (41.0-53.0); Hemoglobin 15.5 g/dL (13.5-16.0); Immature Granulocytes Auto 0.03 Thou/mm3 (0.00-0.00); Lymphocytes # (Auto) 1.0 Thou/mm3 (1.0-4.8); Lymphocytes % (Auto) 13 % (10-50); Mean Corpuscular HGB Conc 33.3 g/dl (31.0-37.0); Mean Corpuscular Hemoglobin 30.8 pg (25.0-35.0); Mean Corpuscular Volume 93 fL (80-100); Monocytes # (Auto) 0.1 Thou/mm3 (0.0-0.8); Monocytes % (Auto) 1 % (0-12); Neutrophils # (Auto) 6.4 Thou/mm3 (1.8-7.7); Neutrophils % (Auto) 85 % (37-80); Nucleated Red Blood Cell # 0.00 Thou/mm3 (0.00-0.00); Nucleated Red Blood Cell % 0 /100 WBC (0); Platelet Count 306 Thou/mm3 (140-440); RDW Standard Deviation 42.0 fL (35.1-43.9); Red Blood Count 5.03 Miln/mm3 (4.50-5.90); White Blood Count 7.6 Thou/mm3 (3.8-10.6)
[2025-08-28 10:02] LABS: Alanine Aminotransferase 25 U/L (10-49); Albumin, Serum 4.0 gm/dL (3.5-5.0); Albumin/Globulin Ratio 1.3 (1.2-2.2); Alkaline Phosphatase 79 U/L (46-116); Anion Gap 11 (7-16); Aspartate Amino Transferase 32 U/L (0-34); BUN/Creatinine Ratio 13 Ratio (12-20); Bilirubin,Total 0.5 mg/dL (0.3-1.2); Blood Urea Nitrogen 13 mg/dL (9-23); Calcium 9.2 mg/dL (8.3-10.6); Calcium (Corrected) 9.2 mg/dL (8.5-10.1); Carbon Dioxide 25.9 mMol/L (20.0-31.0); Chloride 102 mMol/L (98-107); Creatinine (Component) 1.0 mg/dL (0.6-1.3); Estimated Creatinine Clearance 96.9 mL/min (>60); Globulin 3.2 gm/dL (2.3-3.5); Glucose 167 mg/dL (74-106); Magnesium 1.8 mg/dL (1.6-2.6); Osmolality,Calculated 281 (275-295); Phosphorous 1.2 mg/dL (2.4-5.1); Potassium 4.1 mMol/L (3.4-5.1); Sodium 139 mMol/L (136-145); Total Protein 7.2 gm/dL (5.7-8.2); eGFR > 60 See Note
[2025-08-28] MEDS: VANCOMYCIN/D5W 1,250 MG IVPB 250 ML 120 MG IV ×2 (12:32→21:25)
--- NOTE | 2025-08-28 13:47 | ESPR_ITS ---
Documentation for date of: 08/28/25 Subjective Subjective Interval history: Patient received incision and drainage of his right hip this morning. Procedure went well without any complications. Only a few cc of pus were returned and Culture of the pus was not taken as there were so little. Per General Surgery, patient is cleared for discharge Woundcare has been referred. Will wait for one more day for final blood culture result. Currently, blood culture is negative for 24 hrs x2. On IV Zosyn 3.375g IV q8hr and IV Vancomycin Labs reviewed and patient examined at the bedside. Denies chest pain, palpation, SOB, abdominal pain, N/V, fevers or chills. Exam Vital Signs Temp Pulse Resp BP Pulse Ox O2 Del Method O2 Flow Rate 98.0 F 72 17 106/57 L 98 Room Air 2 08/28/25 08:00 08/28/25 08:00 08/28/25 08:00 08/28/25 08:00 08/28/25 08:00 08/28/25 08:00 08/28/25 05:22 Narrative Exam General: No acute distress, well nourished, AAO x3 Eye: PERRL, EOMI, normal conjunctiva, no scleral icterus HENT: Normocephalic, atraumatic, hearing intact to conversation at normal volume, moist oral mucosa Neck: Supple, non-tender, no JVD, no lymphadenopathy Lungs: Non-labored respirations, symmetric chest rise, Clear to auscultate bilaterally, No wheezing, rhonchi, crackles Heart: Peripheral pulses intact bilaterally, Regular Rate and Rhythm. Abdomen: Soft, non-tender, non-distended, no palpable masses Musculoskeletal: Normal range of motion and strength, No cyanosis or edema, No visible joint swelling Skin: Skin is warm, dry, Right side abscess, fluffed gauze dressing secured with tape. Psychiatric: Cooperative, appropriate mood and affect, Awake and alert, not agitated Neuro: Cranial nerves II-XII grossly intact. Strength 5/5 throughout. Sensations intact to light touch. Objective Labs 08/29/25 05:09 08/29/25 05:09 Labs: Laboratory Results - last 24 hr 08/27/25 08/28/25 11:17 09:00 WBC 7.6 RBC 5.03 Hgb 15.5 Hct 46.6 MCV 93 MCH 30.8 MCHC 33.3 RDW Std Deviation 42.0 Plt Count 306 Neut % (Auto) 85 H Lymph % (Auto) 13 [place] % (Auto) 1 Eos % (Auto) 0 Baso % (Auto) 0 Neut # (Auto) 6.4 Lymph # (Auto) 1.0 [place] # (Auto) 0.1 Eos # (Auto) 0.0 Baso # (Auto) 0.0 Immature Gran # (Auto) 0.03 H Absolute Nucleated RBC 0.00 Immature Gran % 0 Nucleated RBC % 0 ESR 45 H Sodium 139 Potassium 4.1 Chloride 102 Carbon Dioxide 25.9 Anion Gap 11 BUN 13 Creatinine 1.0 Estim Creat Clear Calc 96.9 eGFR > 60 BUN/Creatinine Ratio 13 Glucose 167 H D Calculated Osmolality 281 Calcium 9.2 Corrected Calcium 9.2 Phosphorus 1.2 L Magnesium 1.8 Total Bilirubin 0.5 AST 32 ALT 25 Alkaline Phosphatase 79 Total Protein 7.2 Albumin 4.0 Globulin 3.2 Albumin/Globulin Ratio 1.3 Quality Measures Quality Measures none Assessment & Plan Assessment Current Active Medications: Generic Name Dose Route Start Last Admin Trade Name Freq PRN Reason Stop Dose Admin Acetaminophen 650 mg 08/27/25 13:12 Acetaminophen 325 Mg Tablet PO 09/26/25 13:11 Q6H PRN Fever >101.5 Acetaminophen 650 mg 08/27/25 13:12 Acetaminophen 325 Mg Tablet PO 09/26/25 13:11 Q6H PRN PAIN SCALE 1-3 (mild Hydrocodone Bitart/Acetaminophen 1 tab 08/27/25 13:12 Hydrocodone/Apap 10/325 Tab PO 09/01/25 13:11 Q4HR PRN PAIN SCALE 7-10 (Severe Al Hydrox/Mg Hydrox/Simethicone 30 ml 08/27/25 13:12 Mg Hyd/Al Hyd/Malik (Maalox Reg) Susp 30 Ml Udc PO 09/26/25 13:11 Q6H PRN Indigestion Piperacillin/Tazobactam/Dextrose 3.375 gm in 50 mls @ 12.5 mls/hr 08/28/25 00:30 08/28/25 05:52 Zosyn IV 09/04/25 00:29 12.5 mls/hr Q8HR EDI Administration Protocol Vancomycin HCl/Dextrose 250 mls @ 120 mls/hr 08/28/25 11:15 08/28/25 12:32 Vancomycin/D5w 1,250 Mg Ivpb IV 09/04/25 11:14 120 mls/hr QDAY@1000,2200 [facility] Administration Protocol Ondansetron HCl 4 mg 08/27/25 13:12 Ondansetron Inj 2 Mg/Ml Inj 2 Ml IVP 09/26/25 13:11 Q6H PRN NAUSEA OR VOMITING Protocol Oxycodone/Acetaminophen 1 tab 08/27/25 13:12 Oxycodone/Apap 5/325 Tablet PO 09/01/25 13:11 Q6H PRN PAIN SCALE 4-6 (Moderate Pharmacy Consult 1 each 08/27/25 17:15 08/28/25 13:22 Vancomycin Pharmacy To Dose 1 Each Each IV 09/26/25 17:14 Not Given QDAY [facility] Plan Mr. Elias Dailey, is 44 y/o M, without significant past medical history, presents to ED on 08/27/2025, for follow up after incision and drainage of the right psoas/iliacus abscess performed in 08/24/2025. The patient reports the abscess began 05/2025 with no known precipitating factors. He denies any history of trauma, falls, strenuous physical activity, or relevant family history when it began. At the time, the infection was confined to the psoas and iliacus muscles. Patient received incision and drainage on 08/24. Denies chest pain, palpation, SOB, abdominal pain, N/V, fevers or chills. Patient will be admitted for management of the right flank abscess. #Right side abscess -CT abd/pelvis w contrast (08/24/2025): Soft tissue abscess in the right flank anterior and lateral to the right iliac bone which extends to the skin surface, 7 x 3 x 7 cm -Past CT abd/pelvis w contrast (06/18/2025): Abscess involving the right psoas and right iliacus muscle, at least 6 cm in mediolateral dimension and extending cephalocaudad over dimension of at least 10 cm -In the past, Incision and Drainage done 08/24 -Patient received incision and drainage of his right hip on 08/28. Only a few cc of pus were returned and Culture of the pus was not taken as there were so little. Per General Surgery, patient is cleared for discharge -Currently, blood culture is negative for 24 hrs x2. Plan: -On IV Vancomycin qd, and IV Zosyn 3.375g IV q6hr (08/27-) -Pending Blood Culture -Consulted General Surgery, Dr. Ruggiero, Tam recommendations -Woundcare referred Disposition: Medsur Diet: Regular diet, NPO after midnight GI prophylaxis: Maalox DVT prophylaxis: Not given Code:FULL Assessment and plan discussed with my attending physician Dr. Bo and Dr. Damico (PGY-2) Dr. Ricardo (PGY-1) - Internal medicine resident Attending Provider Attestation/Addendum I have examined the patient, reviewed labs and imaging findings, discussed the case with the resident(s), and reviewed entered orders. I agree with the plan of care as outlined in this note, with these additional summaries/recommendations: Patient seen at bedside. No acute overnight events. Patient went for right hip/abdominal abscess incision and drainage today with general surgery. Patient appears to have tolerated the procedure well and currently reports his pain is controlled. Intraoperative cultures were not taken given there was only a few cc of pus. We will continue IV antibiotics. Blood culture showed no growth at 24 hours and we will await 48-hour ying before patient can be safely discharged. Continue pain management. Order wound care. Patient counseled on outpatient follow-up once medically cleared for discharge. Patient in agreement with the plan. All questions answered to satisfaction. Please see residents note for additional details and management. Dr. Anupam MD
--- NOTE | 2025-08-28 18:36 | PC.NURSE ---
Education regarding wound care given to patient spouse at 1800. Verbal instruction given as well as demonstration with dressing change. Dressing change completed at 1830.
[2025-08-29] VITALS: BP 113/61; PULSE 71; RESP 17; TEMP 36.4; O2SAT 97
[2025-08-29 04:00] VITALS: BP 112/64; PULSE 77; RESP 17; TEMP 36.4; O2SAT 97
[2025-08-29] MEDS: PIPER/TAZO 3.375 GM PREMIX 3.375 GM/50 ML BAG IV ×2 (05:35→14:28)
[2025-08-29 06:31] LABS: Basophils # (Auto) 0.0 Thou/mm3 (0.0-0.2); Basophils % (Auto) 0 % (0-2.5); Eosinophils # (Auto) 0.0 Thou/mm3 (0.0-0.5); Eosinophils % (Auto) 0 % (0-10); Hematocrit 40.5 % (41.0-53.0); Hemoglobin 13.7 g/dL (13.5-16.0); Immature Granulocytes Auto 0.08 Thou/mm3 (0.00-0.00); Lymphocytes # (Auto) 1.7 Thou/mm3 (1.0-4.8); Lymphocytes % (Auto) 10 % (10-50); Mean Corpuscular HGB Conc 33.8 g/dl (31.0-37.0); Mean Corpuscular Hemoglobin 31.6 pg (25.0-35.0); Mean Corpuscular Volume 93 fL (80-100); Monocytes # (Auto) 0.9 Thou/mm3 (0.0-0.8); Monocytes % (Auto) 5 % (0-12); Neutrophils # (Auto) 13.7 Thou/mm3 (1.8-7.7); Neutrophils % (Auto) 83 % (37-80); Nucleated Red Blood Cell # 0.00 Thou/mm3 (0.00-0.00); Nucleated Red Blood Cell % 0 /100 WBC (0); Platelet Count 298 Thou/mm3 (140-440); RDW Standard Deviation 42.0 fL (35.1-43.9); Red Blood Count 4.34 Miln/mm3 (4.50-5.90); White Blood Count 16.4 Thou/mm3 (3.8-10.6)
[2025-08-29 07:08] LABS: Alanine Aminotransferase 21 U/L (10-49); Albumin, Serum 3.7 gm/dL (3.5-5.0); Albumin/Globulin Ratio 1.2 (1.2-2.2); Alkaline Phosphatase 63 U/L (46-116); Anion Gap 10 (7-16); Aspartate Amino Transferase 22 U/L (0-34); BUN/Creatinine Ratio 11 Ratio (12-20); Bilirubin,Total 0.4 mg/dL (0.3-1.2); Blood Urea Nitrogen 10 mg/dL (9-23); Calcium 9.1 mg/dL (8.3-10.6); Calcium (Corrected) 9.3 mg/dL (8.5-10.1); Carbon Dioxide 26.8 mMol/L (20.0-31.0); Chloride 103 mMol/L (98-107); Creatinine (Component) 0.9 mg/dL (0.6-1.3); Estimated Creatinine Clearance 107.6 mL/min (>60); Globulin 3.1 gm/dL (2.3-3.5); Glucose 111 mg/dL (74-106); Magnesium 1.9 mg/dL (1.6-2.6); Osmolality,Calculated 279 (275-295); Phosphorous 3.4 mg/dL (2.4-5.1); Potassium 3.8 mMol/L (3.4-5.1); Sodium 140 mMol/L (136-145); Total Protein 6.8 gm/dL (5.7-8.2); eGFR > 60 See Note
[2025-08-29 08:00] VITALS: BP 118/66; PULSE 60; RESP 18; TEMP 36.3; O2SAT 96
[2025-08-29 10:19] LABS: Vancomycin,Trough 8.8 mcg/mL (5.0-10.0)
[2025-08-29 10:32] VITALS: BMI 31.8
[2025-08-29] MEDS: VANCOMYCIN/D5W 1500 MG IVPB 300 ML 120 MG IV (10:40)
--- NOTE | 2025-08-29 11:22 | PC.SS ---
SS met with patient regarding his d/c plan. Pt is alert/oriented. Pt was admitted for Abscess. Pt confirmed demographic and contact information is correct on facesheet. Pt resides with and kids. Pt ambulates independently without assistance or DME. Pt is ok with all ADLs. Patient?s pharmacy of choice is [facility]. Pt named his , Isa Griffin medical decision maker if he is unable. Patient?s choice is to return home upon d/c. Pt states he is not diabetic and is not on dialysis. or kids will provide transportation. Pt states he followed up with PCP on Monday. D/C plan: Return home Next of Kin: Isa Griffin, , phone# [phone] PCP: [facility] Address: Correct on facesheet
[2025-08-29 12:00] VITALS: BP 119/70; PULSE 78; RESP 18; TEMP 36.4; O2SAT 94
--- NOTE | 2025-08-29 12:56 | PC.NURSE ---
Wound care done today. cleansed with NS, packed with strip packing and covered with Allevyn. Explained to patient how to change dressing change again with unit assembler. Pt verbalized understanding. Will send home supplies for patient.
--- NOTE | 2025-08-29 13:16 | ESDS_ITS ---
Planned Discharge Date 08/29/25 DS: Providers Provider Date of admission: 08/27/25 13:12 Primary care physician: Kolton Hinds MD Admitting Provider: Jasvir Bo MD Attending Provider on Admission: Jasvir Bo MD Consults: 08/27/25 18:40 [facility] Referral - Knowledge Deficit Routine Comment: Positive screening for knowledge deficit needs. 08/27/25 20:03 Consult to General Surgery Routine Comment: Right flank abscess Consulting Provider: Radha Ruggiero 08/28/25 14:13 Referral Wound Care Routine Comment: 08/28/25 15:47 Referral Nutritional Services Routine Comment: Wound 08/28/25 15:49 Referral OP Wound Healing Dept Routine Comment: Right hip abscess s/p surgical debridement Attending Provider on DC: Iveth Ricardo DO Discharging Provider: Iveth Ricardo DO DS: Diagnosis Problem List Completed Was Problem List Reviewed/Reconciled?: Yes Hospital Course Hospital Course Hospital course: Summary: Mr. Elias Dailey, is 44 y/o M, without significant past medical history, presents to ED on 08/27/2025, for follow up after incision and drainage of the right psoas/iliacus abscess performed in 08/24/2025. CT abd/pelvis w contrast (08/24/2025) showed Soft tissue abscess in the right flank anterior and lateral to the right iliac bone which extends to the skin surface, 7 x 3 x 7 cm. IV antiotics were given. Patient received incision and drainge of the abscess on 08/28 and was discharged on 08/29/2025. ED course: CT abd/pelvis w contrast (08/24/2025): Soft tissue abscess in the right flank anterior and lateral to the right iliac bone which extends to the skin surface, 7 x 3 x 7 cm Hospital Course: Upon admission, patient received IV Vancomycin qd, and IV Zosyn 3.375g IV q6hr. Patient received incision and drainage of his right hip on 08/28. Procedure went well without any complications. Only a few cc of pus were returned and Culture of the pus was not taken as there were so little. Per General Surgery, patient was cleared for discharge. Blood culture showed negative growth for 48hrs x2. Patient was discharged with oral antibiotics and instructions to follow up with General Surgery, Dr. Ruggiero within 2 weeks of discharge. Instructions: Please take Augmentin 875-125 mg tablet twice a day and Doxycycline 100 mg tablet by mouth twice a day for a total of 7 days Take oxycodone 5-325mg tablet every 6 hours for breakthrough pain Please follow-up with Dr. Ruggiero, general surgeon within 2 weeks after discharge Please follow-up with your PCP within 1 week of discharge or follow-up at the [facility] [address] [place] [address] Complete lab work (bloodwork) CBC within 1 week and follow-up with your PCP as your white blood cell count is elevated If your symptoms worsen or if you develop new chest pain, shortness of breath, severe abdominal pain or bleeding - please come back to the ED immediately. 1) Follow up at [facility] for wound to right hip. [address] [place] [address]. Call [phone] for appointment. 2) Wound care to right hip: May shower than change dressing. Wash hands with soap and water than remove old dressing including packing gauze. Irrigate well with normal saline and pat dry. Wash hands again. Lightly moisten rolled gauze with normal saline and wring out excess. Pack wound with strip packing until resitance is felt and cavity is filled. Cover with dry gauze and secure with tape. Change once a day and as needed for falling off or saturating. *If active bleeding occurs, apply tight dressing and return to MD or ER. ? Notify primary doctor or return to Emergency Room if any of the following: ? Fever above 100.6? F. ? Increased pain ? Increase swelling ? Red streaks around your wound ? Drainage becomes foul smelling or changes color ? The wound is larger or deeper ? The wound looks dried out or dark ? Bleeding that does not stop with holding pressure Assessment and plan discussed with my attending physician Dr. Bo and Dr. Damico (PGY-2) Dr. Ricardo (PGY-1) - Internal medicine resident Status at Discharge Overall status at discharge: patient is progressing back to baseline Time Spent with Patient Time attestation: Total time spent providing and/or coordinating discharge services: Time spent: Greater than 30 minutes Exam Vital Signs Temp Pulse Resp BP Pulse Ox O2 Del Method O2 Flow Rate 97.3 F 60 18 118/66 96 Room Air 2 08/29/25 08:00 08/29/25 08:00 08/29/25 08:00 08/29/25 08:00 08/29/25 08:00 08/29/25 08:00 08/28/25 05:22 Narrative Exam General: No acute distress, well nourished, AAO x3 Eye: PERRL, EOMI, normal conjunctiva, no scleral icterus HENT: Normocephalic, atraumatic, hearing intact to conversation at normal volume, moist oral mucosa Neck: Supple, non-tender, no JVD, no lymphadenopathy Lungs: Non-labored respirations, symmetric chest rise, Clear to auscultate bilaterally, No wheezing, rhonchi, crackles Heart: Peripheral pulses intact bilaterally, Regular Rate and Rhythm. Abdomen: Soft, non-tender, non-distended, no palpable masses Musculoskeletal: Normal range of motion and strength, No cyanosis or edema, No visible joint swelling Skin: Skin is warm, dry, Right side abscess, fluffed gauze dressing secured with tape. Psychiatric: Cooperative, appropriate mood and affect, Awake and alert, not agitated Neuro: Cranial nerves II-XII grossly intact. Strength 5/5 throughout. Sensations intact to light touch. Discharge Plan Plan Patient Disposition: HOME (Self Care) Care Plan Goals: Please take Augmentin 875-125 mg tablet twice a day and Doxycycline 100 mg tablet by mouth twice a day for a total of 7 days Take oxycodone 5-325mg tablet every 6 hours for breakthrough pain Please follow-up with Dr. Ruggiero, general surgeon within 2 weeks after discharge Please follow-up with your PCP within 1 week of discharge or follow-up at the [facility] [address] [place] [address] Complete lab work (bloodwork) CBC within 1 week and follow-up with your PCP as your white blood cell count is elevated If your symptoms worsen or if you develop new chest pain, shortness of breath, severe abdominal pain or bleeding - please come back to the ED immediately. 1) Follow up at [facility] for wound to right hip. [address] [facility]. Call [phone] for appointment. 2) Wound care to right hip: May shower than change dressing. Wash hands with soap and water than remove old dressing including packing gauze. Irrigate well with normal saline and pat dry. Wash hands again. Lightly moisten rolled gauze with normal saline and wring out excess. Pack wound with strip packing until resitance is felt and cavity is filled. Cover with dry gauze and secure with tape. Change once a day and as needed for falling off or saturating. *If active bleeding occurs, apply tight dressing and return to MD or ER. ? Notify primary doctor or return to Emergency Room if any of the following: ? Fever above 100.6? F. ? Increased pain ? Increase swelling ? Red streaks around your wound ? Drainage becomes foul smelling or changes color ? The wound is larger or deeper ? The wound looks dried out or dark ? Bleeding that does not stop with holding pressure Prescriptions/Referrals Prescriptions/Med Rec: New oxycodone-acetaminophen 5-325 mg Tablet 1 tab PO Q6H MDD oxycodone 20mg PRN (Reason: Pain Scale 4-6 (Moderate) 5 Days Qty: 20 0RF amoxicillin-pot clavulanate 875-125 mg tablet 1 tab PO BID 7 Days Qty: 14 0RF doxycycline monohydrate 100 mg capsule 100 mg PO BID 7 Days Qty: 14 0RF Continued clindamycin HCl [Cleocin HCl] 300 mg capsule 300 mg PO TID Qty: 30 0RF Referrals: Kolton Hinds MD [Primary Care Provider, Family Practice] Outpatient Orders (i.e. Home Health, Labs, Imaging): CBC (Routine) Timeframe: 1 Week Location: Determined by Patient Ordered By: Royal Tanousian Patient/Caregiver Discharge Instructions Education Materials: Nutrition for Wound Healing, Changing Dressing Dc, Discharge Instructions Wound ..., Preventing Surgical Site Infections Print Language: Cuban Stand Alone Forms: Marisol Award Info., Patient Portal Info Letter Discharge Order Discharge Orders: Discharge (Routine); Ordered 08/29/25 Ordered By: Royal Damico Quality Discharge Quality Measures VTE prophylaxis MD Attestestation MD Attestation I have examined the patient, reviewed labs and imaging findings, discussed the case with the resident(s), and reviewed entered orders. I agree with the plan of care as outlined in this note. Time spent: [address] Anupam MD
[2025-08-29 16:00] VITALS: BP 130/67; PULSE 76; RESP 18; TEMP 36.8; O2SAT 96
== END 2025-08-29 16:34 | disposition home or self-care (01) | DRG 364 ==
LOC: SERX 11:23 → SERHOLD 14:19 → S3NX 23:37 → SERHOLD 08-28 05:32
PROVIDERS: Nurse Practitioner Primary Care; Student in an Organized Health Care Education/Training Program; Surgery; Admitting Provider Student in an Organized Health Care Education/Training Program; Emergency Provider Emergency Medicine; PCP Family Medicine; Visit Provider Student in an Organized Health Care Education/Training Program
DX: L02.415 Cutaneous abscess of right lower limb (principal); L02.211 Cutaneous abscess of abdominal wall; K74.60 Unspecified cirrhosis of liver
CPT/HCPCS: 36415; 80053; 80202; 83605; 83735; 84100; 84145; 85025; 85610; 85652; 85730; 86140; 87040; 99282; A4217; A4649; J1100; J2543; J2704; J2765; J3010; J3373; J3490; A9270

== ENCOUNTER → 2025-10-06 | Outpatient (CLI) | payer MEDICAID, SELFPAY | END | disposition home or self-care (01) | PROVIDERS: PCP Physician Assistant; Referring Provider Physician Assistant; Visit Provider Surgery | DX: S71.101A Unspecified open wound, right thigh, initial encounter (principal); X58.XXXA Exposure to other specified factors, initial encounter; L02.415 Cutaneous abscess of right lower limb | CPT/HCPCS: 99213; A9270; G0463 ==

== ENCOUNTER → 2025-10-13 | Outpatient (CLI) | payer MEDICAID, SELFPAY | END | disposition home or self-care (01) | LOC: SWHD 11:04 | PROVIDERS: PCP Physician Assistant; Referring Provider Physician Assistant; Visit Provider Student in an Organized Health Care Education/Training Program | DX: S71.101A Unspecified open wound, right thigh, initial encounter (principal); X58.XXXA Exposure to other specified factors, initial encounter; L02.415 Cutaneous abscess of right lower limb | CPT/HCPCS: 97597 ==

== ENCOUNTER → 2025-10-20 | Outpatient (CLI) | payer MEDICAID, SELFPAY | END | disposition home or self-care (01) | LOC: SWHD 13:06 | PROVIDERS: PCP Physician Assistant; Referring Provider Physician Assistant; Visit Provider Surgery | DX: S71.101A Unspecified open wound, right thigh, initial encounter (principal); X58.XXXA Exposure to other specified factors, initial encounter; L02.415 Cutaneous abscess of right lower limb | CPT/HCPCS: 99213; G0463 ==